=== PATIENT | male | born 1950 | race Caucasian/White ===

== ENCOUNTER 2021-07-31 19:22 | Inpatient (IN) | payer MEDICARE, OTHER, SELFPAY ==
[2021-07-31] VITALS (11 sets, daily range): BP systolic 137–166; BP diastolic 76–83; PULSE 78–100; RESP 17–22; TEMP 36.4–36.9; O2SAT 88–97; BMI 26.6
--- NOTE | 2021-07-31 20:02 | EKG12_ITS ---
Test Reason : SOB Blood Pressure : / mmHG Vent. Rate : 083 BPM Atrial Rate : 083 BPM P-R Int : 164 ms QRS Dur : 072 ms QT Int : 358 ms P-R-T Axes : 041 014 023 degrees QTc Int : 420 ms Normal sinus rhythm Normal ECG Confirmed by DONNIE STALLWORTH, BOZENA ([id number]), video tape editor MYRON LOPEZ ([id number]) on 08/02/2021 9:31:17 AM Referred By: Confirmed By:BOZENA FIELDS MD
--- NOTE | 2021-07-31 20:03 | EDS_ITS ---
HPI History of Present Illness Chief Complaint: Shortness of Breath Informant: patient Narrative Narrative: 70-year-old male presenting to the emergency department with dyspnea and cough of 1 week duration. Patient notes no significant sputum production. He notes headache. He denies any change in taste or smell. No nausea vomiting diarrhea. Mild sinus congestion. He denies prior history of smoking or any known lung conditions. He notes that typically he would walk about 5 miles every day. Today he states he did this but needed to go right home and rest. [facility] Medical History HTN (hypertension) Home Medications atenolol 25 mg PO DAILY 07/31/21 [History Last Taken Unknown] lisinopril 10 mg PO DAILY 07/31/21 [History Last Taken Unknown] tamsulosin 0.4 mg PO DAILY 07/31/21 [History Last Taken Unknown] Allergy/AdvReac Type Severity Reaction Status Date / Time No Known Allergies Allergy Verified 07/31/21 19:26 Social History (Updated 07/31/21 @ 20:[address] Mario Das DO) Smoking Status: Never smoker substance use type: does not use ROS ROS ED ROS Narrative Generalized fatigue Constitutional Constitutional ED: Denies chills, fever(s) or weight loss Eyes Eyes: Denies change in vision or diplopia ENT ENT ED: Denies ear pain, rhinorrhea or sore throat Cardiovascular Cardiovascular: Denies chest pain, orthopnea, palpitations or racing heartbeat Respiratory/Chest Respiratory/Chest: Reports cough, dyspnea and dyspnea on exertion; Denies orthopnea Gastrointestinal Gastrointestinal: Denies abdominal pain, diarrhea, nausea or vomiting Genitourinary Genitourinary ED: Denies dysuria, hematuria or urinary frequency Musculoskeletal Musculoskeletal: Denies arthralgias or myalgias Integumentary Denies abscess or rash Neurologic Neurologic: Reports headache(s); Denies weakness Psychiatric Psychiatric: Denies anxiety, depression, suicidal ideation or suicidal thoughts Endocrine Endocrinology: Denies polydipsia, polyphagia or polyuria Allergic/Immunologic Allergic/Immunologic ED: Denies mouth swelling, tongue swelling or urticaria EXAM Physical Exam Const Vital Signs: 07/31/21 19:23 07/31/21 19:42 07/31/21 19:44 Temperature 97.6 F L 97.6 F L Temperature Source Temporal Temporal Pulse Rate 100 100 Respiratory Rate 20 H 20 H Respiratory Effort Short of Breath Respiratory Pattern Tachypnea Blood Pressure 166/83 H 166/83 H Blood Pressure Mean 110 110 Pulse Ox 90 90 Oxygen Delivery Method Room Air Room Air Room Air 07/31/21 20:27 07/31/21 21:00 07/31/21 21:12 Temperature 98.5 F 98.5 F Temperature Source Temporal Temporal Pulse Rate 100 100 82 Respiratory Rate 22 H 22 H 17 Respiratory Effort Respiratory Pattern Normal Blood Pressure 137/76 H 137/76 H Blood Pressure Mean 96 96 Pulse Ox 92 92 Oxygen Delivery Method Room Air Room Air 07/31/21 21:27 Temperature Temperature Source Pulse Rate 93 Respiratory Rate 18 Respiratory Effort Respiratory Pattern Blood Pressure 137/76 H Blood Pressure Mean 96 Pulse Ox 90 Oxygen Delivery Method Room Air Positive well nourished and well developed General Appearance ED: well developed HEENT Reports normocephalic, head/scalp atraumatic, TM's clear and moist mucous membranes atraumatic Tympanic Membrane ED: Yes TM's clear Eyes PERRL and EOMs intact bilaterally Neck no lymphadenopathy, supple and no JVD Resp normal respiratory effort and clear to auscultation bilaterally Cardio regular rate, regular rhythm and no murmurs GI normal to inspection, nondistended, normoactive bowel sounds and non-tender Palpation: soft Back/Spine no CVA tenderness, normal ROM and normal to inspection Extremity normal to inspection General Extremety ED: Negative for edema General Extremity: Negative for edema Neuro oriented x3 and CN's II-XII intact bilaterally Sensorium / Orientation: alert Motor Exam: strength 5/5 throughout Psych mental status grossly normal Mood & Affect: Negative for depressed or tearful Skin no rashes or lesions noted and no wounds MDM MDM MDM Narrative Medical decision making narrative: My interpretation of the chest x-ray is a right lower lobe infiltrate with small pleural effusion. White count is elevated 13.7 hemoglobin of 13.1. D-dimer significantly elevated 2.01 does not age correct. CMP showed a BUN of 19 creatinine 1.02. Glucose of 180. Troponin high-sensitivity 5. Lactic acid is normal at 1.2. Patient received aerosols Rocephin and azithromycin after blood cultures were obtained. Because the elevated D-dimer a CTA of the chest was obtained. Results are currently pending. Watching the patient on the monitor he will drop to 88% on room air. He was placed on 3 L. Due to the hypoxia and the pneumonia I will speak with the hospitalist regarding admission. His Covid PCR is also negative Lab Data Attestation: I reviewed the patient's lab results. Labs: Laboratory Results - last 24 hr 07/31/21 07/31/21 07/31/21 19:37 19:37 19:37 WBC 13.7 H RBC 4.31 L Hgb 13.1 Hct 38.9 L MCV 90.3 MCH 30.4 MCHC 33.7 RDW Std Deviation 41.1 RDW Coeff of Juliet 12.3 Plt Count 591 H MPV 9.8 Immature Gran % (Auto) 0.800 Neut % (Auto) 80.7 H Lymph % (Auto) 6.6 L Rains % (Auto) 10.1 H Eos % (Auto) 1.4 Baso % (Auto) 0.4 Absolute Neuts (auto) 11.1 H Absolute Lymphs (auto) 0.90 Nucleated RBC % 0 PT 14.0 INR 1.1 APTT 35.6 D-Dimer Quant (PE/DVT) 2.01 H* Sodium 136 Potassium 3.8 Chloride 102 Carbon Dioxide 27.0 Anion Gap 7 BUN 19 H Creatinine 1.02 Estim Creat Clear Calc 65.46 Est GFR (MDRD) Af Amer 92 Est GFR (MDRD) Non-Af 76 BUN/Creatinine Ratio 18.6 Glucose 180 H Lactic Acid Calcium 8.9 Total Bilirubin 0.30 AST 23 ALT 42 Alkaline Phosphatase 158 H Troponin I High Sens 5 B-Natriuretic Peptide Total Protein 7.0 Albumin 2.3 L Globulin 4.7 H Albumin/Globulin Ratio 0.5 L COVID-19 (CARLOS) 07/31/21 07/31/21 07/31/21 19:37 20:25 21:17 WBC RBC Hgb Hct MCV MCH MCHC RDW Std Deviation RDW Coeff of Juliet Plt Count MPV Immature Gran % (Auto) Neut % (Auto) Lymph % (Auto) Rains % (Auto) Eos % (Auto) Baso % (Auto) Absolute Neuts (auto) Absolute Lymphs (auto) Nucleated RBC % PT INR APTT D-Dimer Quant (PE/DVT) Sodium Potassium Chloride Carbon Dioxide Anion Gap BUN Creatinine Estim Creat Clear Calc Est GFR (MDRD) Af Amer Est GFR (MDRD) Non-Af BUN/Creatinine Ratio Glucose Lactic Acid 1.2 Calcium Total Bilirubin AST ALT Alkaline Phosphatase Troponin I High Sens B-Natriuretic Peptide 54.5 Total Protein Albumin Globulin Albumin/Globulin Ratio COVID-19 (CARLOS) Negative Radiography Diagnostic Testing: Clinical Impression(s) from Imaging Studies Chest X-Ray 07/31/21 20:16 IMPRESSION: Small right pleural effusion and right lower lobe consolidation. Minor discoid atelectasis at left base Electronically Signed: Cristobal Garcia MD at 21:50 EDT , Service support , EKG Initial EKG: Attestation: I personally reviewed and interpreted this EKG as follows: Comments: Normal sinus rhythm with a ventricular rate of 83 bpm Discharge Plan Dx/Rx/DC Orders Clinical Impression: Pneumonia, Acute hypoxemic respiratory failure, Pleural effusion, right Disposition Disposition: Acute Care Hospital [facility]
--- NOTE | 2021-07-31 20:16 | RAD_ITS ---
STUDY: X-RAY CHEST REASON FOR EXAM: Male, 70 years old. dyspnea TECHNIQUE: AP portable COMPARISON: None. FINDINGS: Mild discoid atelectasis in the left lower lobe. There is right lower lobe consolidation with small effusion. Heart is mildly enlarged.. Normal mediastinum and kulwant. Normal visualized pulmonary arteries. Normal visualized aortic arch and descending thoracic aorta. Dorsal spine demonstrates degenerative change. Normal visualized ribs, clavicles, and shoulders. There is no demonstrated abnormality of the visualized soft tissue structures of the upper abdomen. RAD/Chest 1 View (Portable) IMPRESSION: Small right pleural effusion and right lower lobe consolidation. Minor discoid atelectasis at left base Electronically Signed: Cristobal Garcia MD at 21:50 EDT , Service support ,
[2021-07-31 21:03] LABS: Lactic Acid 1.2 mmol/L (0.4-1.9)
[2021-07-31 21:03] LABS: ALB/GLOB Ratio 0.5 RATIO (0.9-2.4); AST(SGOT) 23 U/L (15-37); Alanine Aminotransfer ALT/SGPT 42 U/L (16-61); Albumin, Serum 2.3 g/dL (3.2-5.0); Alkaline Phosphatase 158 U/L (45-117); Anion Gap 7 (5-15); BUN 19 mg/dL (7-18); BUN/Creat Ratio 18.6 RATIO (10-20); Calcium,Total 8.9 mg/dL (8.5-10.1); Chloride 102 mmol/L (98-107); Creatinine, Serum 1.02 mg/dL (0.70-1.30); EST Glomerular Filtration Rate 76 mL/min (>60); Est Glom Filt Rate - Afr Amer 92 mL/min (>60); Estimated Creatinine Clearance 65.46 ml/min; Globulin 4.7 g/dL (2.2-4.2); Glucose 180 mg/dL (74-106); Potassium 3.8 mmol/L (3.5-5.1); Sodium Level 136 mmol/L (136-145); Troponin-I HS 5 pg/mL (3.0-78.0)
[2021-07-31 21:04] LABS: International Normalized Ratio 1.1; Partial Thromboplast Time 35.6 Seconds (24.1-36.2)
[2021-07-31 21:05] LABS: D-Dimer Quantitative (DVT/PE) 2.01 FEU/ug/m (0.27-0.49)
--- NOTE | 2021-07-31 21:09 | CT_ITS ---
STUDY: CTA CHEST REASON FOR EXAM: Male, 70 years old. pulmonary embolism RADIATION DOSAGE (If Supplied By Facility): CTDIvol = ( 12.51 ) mGy, DLP = ( 367.82 ) mGycm TECHNIQUE: The examination was performed with the intravenous administration of IV 100mL Isovue-370. Post-processing of the angiographic images was performed, with multiplanar reformation and 3D reconstruction. Individualized dose optimization techniques were used for this CT. COMPARISON: None. FINDINGS: Lower limit of normal except for contrast density in the pulmonary arteries, between 180 and 230 [place] units decreases overall quality of the exam. No pulmonary embolism is suggested. Distal embolic disease is unlikely but not completely excluded. Thoracic aorta is normal size with no luminal irregularity to suggest dissection. No significant atherosclerosis. Heart is normal size without enlargement. There is mildly increased size of the left atrium measuring 4.0 cm AP diameter. This may be indicative of diastolic dysfunction. There is a moderate size, dense consolidation in the posterior dependent aspect of the right lower lobe extending into the superior segment right lower lobe. Underlying small pleural effusion. Patchy airspace disease is also seen in the right middle lobe and the posterior dependent aspect right upper lobe. In the left lung, posterior aspect of the superior segment left lower lobe is a small area of peripheral airspace disease. There is a tiny left pleural effusion. Right hilar 2.6 cm hypodensity likely representing lymphadenopathy. No other mediastinal or hilar lymphadenopathy. There is gynecomastia bilaterally symmetric. No axillary lymphadenopathy. Base of the neck is normal in appearance. Osseous structures are normal for age. CT/CTA Chest W/WO Contrast IMPRESSION: Suboptimal density of contrast in the pulmonary arteries limiting sensitivity however no pulmonary embolism is suggested. Dense right lower lobe consolidation and smaller areas of airspace disease in the periphery of the right upper lobe, left upper lobe and scattered within the right middle lobe. Infectious etiology is favored however there is some evidence of diastolic dysfunction. Associated pleural effusions decrease likelihood of Covid pneumonia which cannot be completely excluded. 2.6 cm right hilar hypodense mass suspicious for lymphadenopathy. Follow-up CT chest in 6 weeks following treatment to assess for resolution is recommended. Gynecomastia. Electronically Signed: Duane Boss DO at 0:00 EDT Tel , Service support ,
[2021-07-31 21:10] LABS: Absolute Neutrophil Count 11.1 X10^3/uL (2.0-7.7); Basophil# 0.05 X10^3/uL; Basophil% 0.4 % (0-1); Eosinophil# 0.19 X10^3/uL; Eosinophils% 1.4 % (0-5); Hematocrit 38.9 % (40-54); Hemoglobin 13.1 g/dL (13.0-16.5); Lymphocyte % 6.6 % (19-41); Mean Corp Hgb Conc 33.7 g/dL (32-36); Mean Corpuscular Hgb 30.4 pg (27.0-32.0); Mean Corpuscular Volume 90.3 fL (80-94); Mean Platelet Vol. 9.8 fl (6.2-12.0); Monocyte# 1.39 X10^3/uL; Monocyte% 10.1 % (0-10); NRBC Flagged by Analyzer 0 % (0-5); Neutrophil # 11.06 X10^3/uL (2.7-7.7); Neutrophil % 80.7 % (47-70); Platelet Count 591 K/mm3 (150-450); RBC Distribution Width CV 12.3 % (11.6-14.6); RBC Distribution Width SD 41.1 fl (35.1-43.9); Red Blood Count 4.31 M/mm3 (4.6-6.2); White Blood Count 13.7 K/mm3 (4.4-11.0)
[2021-07-31] MEDS: Ceftriaxone 1 GM/50 ML BAG IV (21:12)
[2021-07-31] MEDS: Albuterol 2.5 MG/3 ML VIAL.NEB. INHALATION (21:16)
[2021-07-31] MEDS: Ipratropium/Albuterol Sulfate 3 ML AMPUL.NEB INHALATION (21:16)
[2021-07-31 21:56] LABS: BNP,B-Type NATRIURETIC PEPTIDE 54.5 pg/mL (0-100)
[2021-07-31 22:30] LABS: Probe Check PASS; Specimen Processing Control PASS
--- NOTE | 2021-07-31 23:30 | PCM.HP.STD ---
[facility] - General General Date of Admission: 07/31/21 Date of Service: 07/31/21 Chief Complaint: Shortness of breath HPI Narrative JHOANA SPARKS, is a 70 M with a significant history of hypertension who presents to the emergency department with 2-3 days of progressively worsening shortness of breath. Associated with symptoms is dry cough for 1 week to 10 days. He went to the urgent care on the same day of presentation and reportedly his temperature at urgent care was 100 Fahrenheit. He denies chills or anorexia. He reports headache and fatigue. Routinely he walks about 5 miles each day. On the day of presentation after his 5 miles walk he was exceptionally tired than usual making him take about 2 hours nap. He received [place] COVID-19 immunization in November and in December 2020 and he had a booster about 3 weeks ago. [facility] Medical History HTN (hypertension) Home Medications atenolol 25 mg PO DAILY 07/31/21 [History Last Taken Unknown] lisinopril 10 mg PO DAILY 07/31/21 [History Last Taken Unknown] tamsulosin 0.4 mg PO DAILY 07/31/21 [History Last Taken Unknown] Allergy/AdvReac Type Severity Reaction Status Date / Time No Known Allergies Allergy Verified 07/31/21 19:26 Family History (Updated 08/01/21 @ 00:[address] Ajith García MD) Other Dementia Surgical History (Updated 08/01/21 @ 00:[address] Ajith García MD) History of kidney surgery Social History Smoking Status: Never smoker substance use type: does not use ROS ROS Narrative Constitutional: Reports fever and fatigue. Denies chills, anorexia and change in weight Eyes: Denies blurry vision, change in eye color, change in vision, discharge from eye(s), double vision, erythema, eye pain, loss of vision or other HEENT: Denies abnormal hearing, dysphagia, ear pain, epistaxis, headache(s), hearing loss, nasal congestion, nasal discharge, post nasal drip, sinus pressure, sore throat or other Cardiovascular: Denies chest pain or palpitations. Reports dyspnea on exertion. Respiratory/Chest: Reports dry cough and wheezes. Gastrointestinal: Denies abdominal pain, coffee ground emesis, constipation, diarrhea, dyspepsia, hematemesis, hematochezia, loose stools, melena, nausea, vomiting or other Genitourinary: Denies burning urination, difficulty urinating, dysuria, hematuria, nocturia, urinary frequency, urinary hesitancy, urinary incontinence, urinary urgency or other Musculoskeletal: Denies arthralgias, back pain, joint pain, joint stiffness, joint swelling, myalgias, neck pain or other Neurologic: Reports headache. Denies abnormal gait, abnormal speech, confusion, disequilibrium, dizziness, focal weakness, numbness, paresthesias, seizure-like activity, seizures, syncope, tingling, tremor(s) or other Psychiatric: Denies anxiety, depression, homicidal ideation, suicidal ideation or other Endocrinology: Denies change in body appearance, cold intolerance, excessive sweating, heat intolerance, polydipsia, polyuria or other Hematologic/Lymphatic: Denies anemia, easy bleeding, easy bruising, lymphadenopathy or other Integumentary: Denies rashes Allergic/Immunologic: Denies rhinitis, hives, eczema, asthma or other Vital Signs Vital Signs Vital Signs: 07/31/21 19:23 07/31/21 19:42 07/31/21 19:44 Temperature 97.6 F L 97.6 F L Temperature Source Temporal Temporal Pulse Rate 100 100 Respiratory Rate 20 H 20 H Respiratory Effort Short of Breath Respiratory Pattern Tachypnea Blood Pressure 166/83 H 166/83 H Blood Pressure Mean 110 110 Pulse Ox 90 90 Oxygen Delivery Method Room Air Room Air Room Air Oxygen Flow Rate (L/min) 07/31/21 20:27 07/31/21 21:00 07/31/21 21:12 Temperature 98.5 F 98.5 F Temperature Source Temporal Temporal Pulse Rate 100 100 82 Respiratory Rate 22 H 22 H 17 Respiratory Effort Respiratory Pattern Normal Blood Pressure 137/76 H 137/76 H Blood Pressure Mean 96 96 Pulse Ox 92 92 Oxygen Delivery Method Room Air Room Air Oxygen Flow Rate (L/min) 07/31/21 21:27 07/31/21 22:45 07/31/21 22:52 Temperature Temperature Source Pulse Rate 93 Respiratory Rate 18 Respiratory Effort Respiratory Pattern Blood Pressure 137/76 H Blood Pressure Mean 96 Pulse Ox 90 88 95 Oxygen Delivery Method Room Air Room Air Nasal Cannula Oxygen Flow Rate (L/min) 3 Weight Weight: 81.647 kg Body Mass Index (BMI) 26.6 Physical Exam Narrative Physical exam: General: Well-nourished, well-developed. Head: Normocephalic, atraumatic, no tenderness Eyes: PERRLA, EOMI ENT, no trauma, moist mucous membranes, no rhinorrhea Neck: Nontender, full range of motion, no spinal tenderness, deformities, step-off CVS: Regular rate and rhythm. S1-S2 present. No murmur, gallop or rub. Respiratory : Rales at right base. chest wall nontender, no wheezing Abdomen: Soft, nontender, nondistended, normal bowel sounds, no masses : Deferred Back: Nontender, no CVA tenderness, no midline spinal tenderness, deformities, step-offs Extremities: Nontender full range of motion, no trauma Skin: Normal color, no trauma, abrasions Neuro: Alert, oriented, cranial nerves II through XII grossly intact. Psychiatry: Normal mood. Normal affect. Not depressed. Not anxious. Results Lab / Micro Data Result Diagrams: 07/31/21 19:37 07/31/21 19:37 Labs: Laboratory Results - last 24 hr 07/31/21 19:37: WBC 13.7 H, RBC 4.31 L, Hgb 13.1, Hct 38.9 L, MCV 90.3, MCH 30.4, MCHC 33.7, RDW Std Deviation 41.1, RDW Coeff of Juliet 12.3, Plt Count 591 H, MPV 9.8, Immature Gran % (Auto) 0.800, Neut % (Auto) 80.7 H, Lymph % (Auto) 6.6 L, [facility] % (Auto) 10.1 H, Eos % (Auto) 1.4, Baso % (Auto) 0.4, Absolute Neuts (auto) 11.1 H, Absolute Lymphs (auto) 0.90, Nucleated RBC % 0 07/31/21 19:37: PT 14.0, INR 1.1, APTT 35.6, D-Dimer Quant (PE/DVT) 2.01 H* 07/31/21 19:37: Sodium 136, Potassium 3.8, Chloride 102, Carbon Dioxide 27.0, Anion Gap 7, BUN 19 H, Creatinine 1.02, Estim Creat Clear Calc 65.46, Est GFR (MDRD) Af Amer 92, Est GFR (MDRD) Non-Af 76, BUN/Creatinine Ratio 18.6, Glucose 180 H, Calcium 8.9, Total Bilirubin 0.30, AST 23, ALT 42, Alkaline Phosphatase 158 H, Troponin I High Sens 5, Total Protein 7.0, Albumin 2.3 L, Globulin 4.7 H, Albumin/Globulin Ratio 0.5 L 07/31/21 19:37: B-Natriuretic Peptide 54.5 07/31/21 20:25: Lactic Acid 1.2 07/31/21 21:17: COVID-19 (CARLOS) Negative Micro: Microbiology 07/31/21 19:32 Nasal Secretion SARS-CoV-2 Antigen (Rapid) - Final Radiology Impression Chest X-Ray 07/31/21 20:16 IMPRESSION: Small right pleural effusion and right lower lobe consolidation. Minor discoid atelectasis at left base Electronically Signed: Cristobal Garcia MD at 21:50 EDT , Service support , Assessment & Plan Assessment/Plan (1) Sepsis: QUALIFIERS: Sepsis type: sepsis due to unspecified organism Sepsis acute organ dysfunction status: with acute organ dysfunction Severe sepsis acute organ dysfunction type: acute respiratory failure Acute respiratory failure type: with hypoxia Severe sepsis shock status: without septic shock Qualified Code(s): A41.9 - Sepsis, unspecified organism; R65.20 - Severe sepsis without septic shock; J96.01 - Acute respiratory failure with hypoxia (2) Pneumonia: QUALIFIERS: Pneumonia type: due to unspecified organism Laterality: right Lung location: lower lobe of lung Qualified Code(s): J18.9 - Pneumonia, unspecified organism (3) Pleural effusion, right: (4) Acute hypoxemic respiratory failure: PLAN: Acute hypoxemic respiratory failure secondary to sepsis from pneumonia and pleural effusion Lactic acid: 1.2 RR : Highest respiratory rate 22 Highest heart rate: 100 Oxygen saturation: 88 percent on room air Review of labs showed white count of 13.7 with neutrophilia of 8.7% and with monocytosis and lymphopenia. D-dimer was 2.01. Chest CTA is pending. Covid PCR is negative. QSOFA:1 (respiratory rate 22) Blood culture ?2 is pending Radiologist impression of chest x-ray: Small right pleural effusion and right lower lobe consolidation. Minor discoid atelectasis at left base. Chest x-ray image was independently interpreted and agree radiologist interpretation. Antibiotics: Received ceftriaxone and IV azithromycin emergency department and continued. Albuterol as needed ordered. Incentive spirometer and chest physiotherapy ordered. Legionella antigen screen and Strep antigen ordered Patient with thrombocytosis likely reactive. Trend CBC and BMP Hypertension Blood pressure is not within goal Atenolol and Lisinopril continued. Trend blood pressure and adjust blood pressure medications. BPH: Tamsulosin continued. DVT prophylaxis: Subcutaneous Lovenox ordered Charges/Coding Visit Charges Inpatient E&M: 69740 Init Hosp L3
[2021-08-01] VITALS (8 sets, daily range): BP systolic 123–149; BP diastolic 71–87; PULSE 72–92; RESP 18–22; TEMP 36.5–36.9; O2SAT 92–97; BMI 27.1
[2021-08-01] MEDS: Albuterol 2.5 MG/3 ML VIAL.NEB. INHALATION (00:52)
[2021-08-01] MEDS: guaiFENesin 1,200 MG Tablet 1200 MG PO ×2 (00:55→08:48)
[2021-08-01] MEDS: Acetaminophen 325 MG Tablet 650 MG PO (00:56)
[2021-08-01 05:44] LABS: Absolute Lymphocyte Count 0.96 X10^3/uL (0.83-4.51); Absolute Neutrophil Count 8.7 X10^3/uL (2.0-7.7); Basophil# 0.05 X10^3/uL; Basophil% 0.4 % (0-1); Eosinophil# 0.28 X10^3/uL; Eosinophils% 2.5 % (0-5); Hematocrit 34.9 % (40-54); Hemoglobin 11.6 g/dL (13.0-16.5); Lymphocyte # 0.96 X10^3/ul (0.83-4.51); Lymphocyte % 8.4 % (19-41); Mean Corp Hgb Conc 33.2 g/dL (32-36); Mean Corpuscular Hgb 30.1 pg (27.0-32.0); Mean Corpuscular Volume 90.4 fL (80-94); Mean Platelet Vol. 9.1 fl (6.2-12.0); Monocyte# 1.31 X10^3/uL; Monocyte% 11.5 % (0-10); NRBC Flagged by Analyzer 0 % (0-5); Neutrophil # 8.68 X10^3/uL (2.7-7.7); Neutrophil % 76.3 % (47-70); Platelet Count 468 K/mm3 (150-450); RBC Distribution Width CV 12.5 % (11.6-14.6); RBC Distribution Width SD 41.5 fl (35.1-43.9); Red Blood Count 3.86 M/mm3 (4.6-6.2); White Blood Count 11.4 K/mm3 (4.4-11.0)
[2021-08-01 06:10] LABS: Anion Gap 6 (5-15); BUN 14 mg/dL (7-18); BUN/Creat Ratio 17.4 RATIO (10-20); Calcium,Total 8.5 mg/dL (8.5-10.1); Chloride 103 mmol/L (98-107); EST Glomerular Filtration Rate 100 mL/min (>60); Est Glom Filt Rate - Afr Amer 121 mL/min (>60); Estimated Creatinine Clearance 83.47 ml/min; Glucose 112 mg/dL (74-106); Potassium 3.9 mmol/L (3.5-5.1); Sodium Level 136 mmol/L (136-145)
[2021-08-01] MEDS: Tamsulosin HCl 0.4 MG Capsule PO (08:48)
[2021-08-01] MEDS: Enoxaparin 40 MG/0.4 ML Syringe SC (08:48)
[2021-08-01] MEDS: Lisinopril 10 MG Tablet PO (08:48)
[2021-08-01] MEDS: Atenolol 25 MG Tablet PO (08:49)
--- NOTE | 2021-08-01 11:19 | PCM.PN.HOSP ---
Documented by User: Pardeep MCGOWAN 08/01/21 11:33 Subjective Subjective Patient is a 70-year-old male comfortably resting in bed, alert and orient x3. Patient denies development of any new symptoms overnight and reports improvement of shortness of breath and cough from admission. Denies sputum production or hemoptysis. Denies chest pain, shortness of breath, palpitations, hemoptysis, sputum production, fever, chills, N/V/D. Objective Data Objective Data Vital Signs: Vital Signs Temp Pulse Resp BP Pulse Ox 98.0 F 72 18 123/73 H 93 08/01/21 04:00 08/01/21 04:00 08/01/21 04:00 08/01/21 04:00 08/01/21 08:48 Oxygen Flow Rate (L/min) 2 Oxygen Delivery Method Nasal Cannula Weight: 184 lb Body Mass Index (BMI) 27.1 Intake & Output: Intake and Output for Last 24 Hours 07/30/21 07/31/21 08/01/21 23:59 23:59 23:59 Intake Total 305 / 305 Balance 305 / 305 Lab / Micro Data Result Diagrams: 08/01/21 05:30 08/01/21 05:30 Labs: Laboratory Results - last 24 hr 07/31/21 19:37: WBC 13.7 H, RBC 4.31 L, Hgb 13.1, Hct 38.9 L, MCV 90.3, MCH 30.4, MCHC 33.7, RDW Std Deviation 41.1, RDW Coeff of Juliet 12.3, Plt Count 591 H, MPV 9.8, Immature Gran % (Auto) 0.800, Neut % (Auto) 80.7 H, Lymph % (Auto) 6.6 L, [place] % (Auto) 10.1 H, Eos % (Auto) 1.4, Baso % (Auto) 0.4, Absolute Neuts (auto) 11.1 H, Absolute Lymphs (auto) 0.90, Nucleated RBC % 0 07/31/21 19:37: PT 14.0, INR 1.1, APTT 35.6, D-Dimer Quant (PE/DVT) 2.01 H* 07/31/21 19:37: Sodium 136, Potassium 3.8, Chloride 102, Carbon Dioxide 27.0, Anion Gap 7, BUN 19 H, Creatinine 1.02, Estim Creat Clear Calc 65.46, Est GFR (MDRD) Af Amer 92, Est GFR (MDRD) Non-Af 76, BUN/Creatinine Ratio 18.6, Glucose 180 H, Calcium 8.9, Total Bilirubin 0.30, AST 23, ALT 42, Alkaline Phosphatase 158 H, Troponin I High Sens 5, Total Protein 7.0, Albumin 2.3 L, Globulin 4.7 H, Albumin/Globulin Ratio 0.5 L 07/31/21 19:37: B-Natriuretic Peptide 54.5 07/31/21 20:25: Lactic Acid 1.2 07/31/21 21:17: COVID-19 (CARLOS) Negative 08/01/21 05:30: WBC 11.4 H, RBC 3.86 L, Hgb 11.6 L, Hct 34.9 L, MCV 90.4, MCH 30.1, MCHC 33.2, RDW Std Deviation 41.5, RDW Coeff of Juliet 12.5, Plt Count 468 H, MPV 9.1, Immature Gran % (Auto) 0.900, Neut % (Auto) 76.3 H, Lymph % (Auto) 8.4 L, [place] % (Auto) 11.5 H, Eos % (Auto) 2.5, Baso % (Auto) 0.4, Absolute Neuts (auto) 8.7 H, Absolute Lymphs (auto) 0.96, Nucleated RBC % 0 08/01/21 05:30: Sodium 136, Potassium 3.9, Chloride 103, Carbon Dioxide 27.0, Anion Gap 6, BUN 14, Creatinine 0.80, Estim Creat Clear Calc 83.47, Est GFR (MDRD) Af Amer 121, Est GFR (MDRD) Non-Af 100, BUN/Creatinine Ratio 17.4, Glucose 112 H, Calcium 8.5 Micro: Microbiology 07/31/21 19:32 Nasal Secretion SARS-CoV-2 Antigen (Rapid) - Final Radiography Diagnostic Testing: Radiology Impression Chest X-Ray 07/31/21 20:16 IMPRESSION: Small right pleural effusion and right lower lobe consolidation. Minor discoid atelectasis at left base Electronically Signed: Cristobal Garcia MD at 21:50 EDT , Service support , Chest CTA 07/31/21 21:09 IMPRESSION: Suboptimal density of contrast in the pulmonary arteries limiting sensitivity however no pulmonary embolism is suggested. Dense right lower lobe consolidation and smaller areas of airspace disease in the periphery of the right upper lobe, left upper lobe and scattered within the right middle lobe. Infectious etiology is favored however there is some evidence of diastolic dysfunction. Associated pleural effusions decrease likelihood of Covid pneumonia which cannot be completely excluded. 2.6 cm right hilar hypodense mass suspicious for lymphadenopathy. Follow-up CT chest in 6 weeks following treatment to assess for resolution is recommended. Gynecomastia. Electronically Signed: Duane Boss, at 0:00 EDT Tel , Service support , Physical Exam Const alert, oriented x3 and no apparent distress HEENT head/scalp atraumatic and moist oral mucous membranes Head and Scalp: normocephalic Eyes PERRL, EOMs intact bilaterally and conjunctivae normal Neck no lymphadenopathy, supple and no JVD Resp normal respiratory effort, no retractions, no use of accessory muscles and clear to auscultation bilaterally Cardio regular rate, regular rhythm, no murmurs and no JVD GI normal to inspection, nondistended, normoactive bowel sounds, soft to palpation and non-tender Extremity normal to inspection, full ROM and no clubbing, cyanosis or edema Peripheral Pulses: Yes pulses 2+ throughout Skin no rashes or lesions noted, no wounds, skin turgor normal and no jaundice Neuro CN's II-XII intact bilaterally Psych affect normal Assessment & Plan Assessment/Plan (1) Pneumonia: QUALIFIERS: Laterality: right Lung location: lower lobe of lung Pneumonia type: due to unspecified organism Qualified Code(s): J18.9 - Pneumonia, unspecified organism (2) Acute hypoxemic respiratory failure: PLAN: 1) acute hypoxemic respiratory failure secondary to sepsis from pneumonia and pleural effusion Resolved, currently satting 94% on room air. Patient denies shortness of breath, cough, sputum production or difficulty breathing. Blood cultures pending. Rapid Covid is negative. Chest CTA and chest x-ray demonstrate right lower lobe consolidation with pleural effusion. If patient continues to improve, will likely discharge tomorrow. Continue ceftriaxone and azithromycin. 2) HTN Stable, continue atenolol and lisinopril. 3) BPH Continue tamsulosin. DVT prophylaxis - Lovenox Patient seen by Pardeep Maldonado PA-C, under the supervision of Dr. Arellano. Documented by User: Dr. Nicolás Arellano DO 08/01/21 19:12 Objective Data Lab / Micro Data Result Diagrams: 08/01/21 05:30 08/01/21 05:30
--- NOTE | 2021-08-01 12:15 | CASEMGMT ---
RN SILAS COTTON FEEDER CM to room to meet with patient for initial transition planning/care coordination assessment. RN SILAS introduced self and role at [facility]. Pt voices understanding and consents to assessment at this time. Pt resting in bed in no distress at this time. Pt is A/O at this time and answers all questions appropriately. Care providers, pharmacy, and demographics verified/updated at this time. PCP: Dr Mcdowell Specialists: Urology @ [facility] [place] Preferred Pharmacy:[facility] Insurance: [facility], [place] Prescription Benefit: Yes Living Will/HPOA: Has both. is HPOA LNOK: , Odilia Poe Living Arrangements: Lives w/ in one-story home w/2 steps to enter. Independent. Walks 5 miles/day. Transportation: Pt states drives self and states no transportation concerns at this time. also drives. DME: Denies using any DME and denies needs. HHC/SNF: No history of either. No needs identified. Pt wishes to return home and states has no concerns with going home at time of discharge. CM to follow for home oxygen needs and any discharge planning/needs. Currently on RA. Pt voices no concerns/needs at this time. Advised pt to ask for CM if any questions/concerns/needs arise. Voices understanding. PLAN: Home w/spousal support and discharge plans in place. Reece PARHAM RN, CM
--- NOTE | 2021-08-01 13:09 | PCM.DC ---
Discharge Instructions Diet Discharge Diet: No restrictions Activity Discharge Activity: Return to Normal Activity Weight Bearing Status: Weight bearing as tolerated Dressing / Incision Call your doctor if you observe: Fever of 101 or Higher, Numbness or Tingling, Shortness of breath, Dizziness, Chest pain, Increased palpitations (irregular heartbeat) and Calf discomfort Follow Up Care Please Follow Up With: Primary care provider When: Within the next two weeks. Test Results: Test results from this visit will be discussed in further detail at your follow-up appointment, if applicable. Discharge Plan Admission Admit Date/Time: 07/31/21 23:20 Primary Reason for Your Visit: Shortness of breath Attending Provider: Nicolás Arellano Primary Care Provider: Teetee Mcdowell Instructions Additional Instructions / Restrictions: Obtain a repeat CT of the chest in the next 6 to 8 weeks due to right hilar hypodense mass suspicious for lymphadenopathy. Begin 7 day course of Levofloxacin today, 08/01/2021. Discharge Orders/Prescriptions Prescriptions: New levofloxacin 750 mg tablet 750 mg PO DAILY Qty: 7 RF: 0 Continued atenolol 25 mg Tablet 25 mg PO DAILY RF: 0 tamsulosin 0.4 mg Capsule 0.4 mg PO DAILY RF: 0 lisinopril 10 mg Tablet 10 mg PO DAILY RF: 0 aspirin 81 mg Tablet,Delayed Release (Dr/Ec) 81 mg PO DAILY RF: 0 Referrals / Follow Up: Teetee Mcdowell MD [Primary Care Provider] - Within 2 Weeks Disposition Disposition (needs filled in before D/C Order can be placed): Home, Self Care
--- NOTE | 2021-08-01 13:15 | DS.PCM_ITS ---
Documented by User: Pardeep MCGOWAN 08/01/21 13:18 Providers Date of Admission: 07/31/21 Primary Care Physician: Dr. Teetee Mcdowell MD Reason For Visit: SEPSIS 2NDARY TO PNEUMONIA Diagnosis Discharge Diagnosis (1) Pneumonia: Status: Acute Code(s): J18.9 - Pneumonia, unspecified organism Qualifiers: Laterality: right Lung location: lower lobe of lung Pneumonia type: due to unspecified organism Qualified Code(s): J18.9 - Pneumonia, unspecified organism (2) Acute hypoxemic respiratory failure: Status: Acute Code(s): J96.01 - Acute respiratory failure with hypoxia Medications at Discharge Home Medications atenolol 25 mg PO DAILY 07/31/21 lisinopril 10 mg PO DAILY 07/31/21 tamsulosin 0.4 mg PO DAILY 07/31/21 aspirin 81 mg PO DAILY 08/01/21 levofloxacin 750 mg PO DAILY #7 tab 08/01/21 Hospital Course Summary of Care Provided Minutes Spent on Discharge: 35 Hospital Course: Disposition: Patient to discharge home. 1) acute hypoxemic respiratory failure secondary to sepsis from pneumonia and pleural effusion Resolved, currently satting 94% on room air. Patient denies shortness of breath, cough, sputum production or difficulty breathing. Patient's course improved much faster than anticipated. Blood cultures pending. rapid Covid is negative. Chest CTA and chest x-ray demonstrate right lower lobe consolidation with pleural effusion. Patient to complete 7-day course of levofloxacin at 700 mg daily, starting today. 2) Right hilar mass Chest CT demonstrated 2.6 cm right hilar hypodense mass suspicious for lymphadenopathy. Patient is to obtain repeat chest CT in 6 to 8 weeks while in [place]. 3) HTN Stable, continue atenolol and lisinopril. 4) BPH Continue tamsulosin. Patient seen by Pardeep Maldonado PA-C, under the supervision of Dr. Arellano. Physical Exam Narrative Patient is a 70-year-old male comfortably resting in the chair, alert and orient x3. Patient reports resolution of shortness of breath and cough from admission. Denies development of any new symptoms overnight. Does not appear to be in acute distress. Const alert, oriented x3 and no apparent distress HEENT normocephalic, head/scalp atraumatic and hearing grossly normal bilaterally Eyes PERRL, EOMs intact bilaterally and conjunctivae normal Neck no lymphadenopathy, supple and no JVD Resp normal respiratory effort, no retractions, no use of accessory muscles and clear to auscultation bilaterally Cardio regular rate, regular rhythm, no murmurs and no JVD GI normal to inspection, nondistended, normoactive bowel sounds, soft to palpation and non-tender Extremity normal to inspection, full ROM and no clubbing, cyanosis or edema Skin no rashes or lesions noted, no wounds and skin turgor normal Neuro CN's II-XII intact bilaterally Psych affect normal Weight / BMI Weight Weight: 184 lb Body Mass Index (BMI) 27.1 ABG / Lab / Microbiology Data Result Diagrams: 08/01/21 05:30 08/01/21 05:30 Laboratory: Laboratory Results - last 24 hr 07/31/21 19:37: WBC 13.7 H, RBC 4.31 L, Hgb 13.1, Hct 38.9 L, MCV 90.3, MCH 30.4, MCHC 33.7, RDW Std Deviation 41.1, RDW Coeff of Juliet 12.3, Plt Count 591 H, MPV 9.8, Immature Gran % (Auto) 0.800, Neut % (Auto) 80.7 H, Lymph % (Auto) 6.6 L, [place] % (Auto) 10.1 H, Eos % (Auto) 1.4, Baso % (Auto) 0.4, Absolute Neuts (auto) 11.1 H, Absolute Lymphs (auto) 0.90, Nucleated RBC % 0 07/31/21 19:37: PT 14.0, INR 1.1, APTT 35.6, D-Dimer Quant (PE/DVT) 2.01 H* 07/31/21 19:37: Sodium 136, Potassium 3.8, Chloride 102, Carbon Dioxide 27.0, Anion Gap 7, BUN 19 H, Creatinine 1.02, Estim Creat Clear Calc 65.46, Est GFR (MDRD) Af Amer 92, Est GFR (MDRD) Non-Af 76, BUN/Creatinine Ratio 18.6, Glucose 180 H, Calcium 8.9, Total Bilirubin 0.30, AST 23, ALT 42, Alkaline Phosphatase 158 H, Troponin I High Sens 5, Total Protein 7.0, Albumin 2.3 L, Globulin 4.7 H, Albumin/Globulin Ratio 0.5 L 07/31/21 19:37: B-Natriuretic Peptide 54.5 07/31/21 20:25: Lactic Acid 1.2 07/31/21 21:17: COVID-19 (CARLOS) Negative 08/01/21 05:30: WBC 11.4 H, RBC 3.86 L, Hgb 11.6 L, Hct 34.9 L, MCV 90.4, MCH 30.1, MCHC 33.2, RDW Std Deviation 41.5, RDW Coeff of [place] 12.5, Plt Count 468 H, MPV 9.1, Immature Gran % (Auto) 0.900, Neut % (Auto) 76.3 H, Lymph % (Auto) 8.4 L, [place] % (Auto) 11.5 H, Eos % (Auto) 2.5, Baso % (Auto) 0.4, Absolute Neuts (auto) 8.7 H, Absolute Lymphs (auto) 0.96, Nucleated RBC % 0 08/01/21 05:30: Sodium 136, Potassium 3.9, Chloride 103, Carbon Dioxide 27.0, Anion Gap 6, BUN 14, Creatinine 0.80, Estim Creat Clear Calc 83.47, Est GFR (MDRD) Af Amer 121, Est GFR (MDRD) Non-Af 100, BUN/Creatinine Ratio 17.4, Gluco se 112 H, Calcium 8.5 Microbiology: Microbiology 08/01/21 01:00 Urine, Random Legionella Antigen - Final 08/01/21 01:00 Urine, Random Streptococcus pneumoniae Antigen (M - Final 07/31/21 19:32 Nasal Secretion SARS-CoV-2 Antigen (Rapid) - Final Radiography Diagnostic Testing: Radiology Impression Chest X-Ray 07/31/21 20:16 IMPRESSION: Small right pleural effusion and right lower lobe consolidation. Minor discoid atelectasis at left base Electronically Signed: Cristobal Garcia MD at 21:50 EDT , Service support , Chest CTA 07/31/21 21:09 IMPRESSION: Suboptimal density of contrast in the pulmonary arteries limiting sensitivity however no pulmonary embolism is suggested. Dense right lower lobe consolidation and smaller areas of airspace disease in the periphery of the right upper lobe, left upper lobe and scattered within the right middle lobe. Infectious etiology is favored however there is some evidence of diastolic dysfunction. Associated pleural effusions decrease likelihood of Covid pneumonia which cannot be completely excluded. 2.6 cm right hilar hypodense mass suspicious for lymphadenopathy. Follow-up CT chest in 6 weeks following treatment to assess for resolution is recommended. Gynecomastia. Electronically Signed: Duane DO Gera at 0:00 EDT Tel , Service support , D/C Instructions Discharge Diet: No restrictions Weight Bearing Status: Weight bearing as tolerated Call your doctor if you observe: Fever of 101 or Higher, Numbness or Tingling, Shortness of breath, Dizziness, Chest pain, Increased palpitations (irregular heartbeat) and Calf discomfort Please Follow Up With: Primary care provider When: Within the next two weeks. Meaningful Use Info Meaningful Use Diagnoses (Choose all that apply): None applicable Discharge Plan Admission Admit Date/Time: 07/31/21 23:20 Primary Reason for Your Visit: Shortness of breath Attending Provider: Nicolás Arellano Primary Care Provider: Teetee Mcdowell Instructions Additional Instructions / Restrictions: Obtain a repeat CT of the chest in the next 6 to 8 weeks due to right hilar hypo dense mass suspicious for lymphadenopathy. Begin 7 day course of Levofloxacin today, 08/01/2021. Discharge Orders/Prescriptions Prescriptions: New levofloxacin 750 mg tablet 750 mg PO DAILY Qty: 7 RF: 0 Continued atenolol 25 mg Tablet 25 mg PO DAILY RF: 0 tamsulosin 0.4 mg Capsule 0.4 mg PO DAILY RF: 0 lisinopril 10 mg Tablet 10 mg PO DAILY RF: 0 aspirin 81 mg Tablet,Delayed Release (Dr/Ec) 81 mg PO DAILY RF: 0 Referrals / Follow Up: Teetee Mcdowell MD [Primary Care Provider] - Within 2 Weeks Disposition Disposition (needs filled in before D/C Order can be placed): Home, Self Care Documented by User: Dr. Nicolás Arellano DO 08/01/21 19:15 Providers Date of Admission: 07/31/21 Reason For Visit: SEPSIS 2NDARY TO PNEUMONIA Medications at Discharge Home Medications atenolol 25 mg PO DAILY 07/31/21 lisinopril 10 mg PO DAILY 07/31/21 tamsulosin 0.4 mg PO DAILY 07/31/21 aspirin 81 mg PO DAILY 08/01/21 levofloxacin 750 mg PO DAILY #7 tab 08/01/21 ABG / Lab / Microbiology Data Result Diagrams: 08/01/21 05:30 08/01/21 05:30 Discharge Plan Admission Admit Date/Time: 07/31/21 23:20 Primary Reason for Your Visit: Shortness of breath Attending Provider: Nicolás Arellano Primary Care Provider: Teetee Mcdowell Instructions Additional Instructions / Restrictions: Obtain a repeat CT of the chest in the next 6 to 8 weeks due to right hilar hypodense mass suspicious for lymphadenopathy. Begin 7 day course of Levofloxacin today, 08/01/2021. Discharge Orders/Prescriptions Prescriptions: New levofloxacin 750 mg tablet 750 mg PO DAILY Qty: 7 RF: 0 Continued atenolol 25 mg Tablet 25 mg PO DAILY RF: 0 tamsulosin 0.4 mg Capsule 0.4 mg PO DAILY RF: 0 lisinopril 10 mg Tablet 10 mg PO DAILY RF: 0 aspirin 81 mg Tablet,Delayed Release (Dr/Ec) 81 mg PO DAILY RF: 0 Referrals / Follow Up: Teetee Mcdowell MD [Primary Care Provider] - Within 2 Weeks Disposition Disposition (needs filled in before D/C Order can be placed): Home, Self Care Charges/Coding Addendum Addendum: Patient was seen and examined independently of Pardeep Maldonado, he is on room air at the time of my examination, I went over some options with the patient regarding staying in the hospital and receiving more IV antibiotics or going home on oral antibiotics. Patient decided that he wanted to be discharged home on oral antibiotics. Patient's was present at the time of my examin ation. On examination he appeared in good health and spirits. Vital signs as documented. Skin warm and dry and without overt rashes. Neck without JVD, neck was supple, trachea midline, thyroid was normal. Lungs-there were some inspiratory rales at the left base noted on auscultation, normal air movement was noted. Heart exam notable for regular rhythm, normal sounds and absence of murmurs, rubs or gallops. Abdomen unremarkable and without evidence of organomegaly, masses, or abdominal aortic enlargement. Bowel sounds are present, abdomen is not distended. Extremities nonedematous, no cyanosis was noted, no clubbing was noted. Neuro: Cranial nerves II through XII are grossly intact, no focal motor deficits were noted, sensation to light touch and pinprick intact, motor exam 5/5 throughout. Psych: Patient is alert and oriented x3, he does not appear anxious or depressed, he does not appear agitated. Patient was advised to obtain a repeat CT of the chest in 6 to 8 weeks, he will be in [place] at this time for several months starting 2 weeks from now. He states he does have a physician in [place] that I can order his CAT scan. I have arranged for him to have a disc of his CAT scan of his chest so that he can take it to the physician in [place]. I also printed out a copy of the patient's CAT scan result. Patient appears stable for discharge at this time, I have reviewed Pardeep Maldonado's discharge summary including his medical assessment and plan of care and endorse it. Patient recovered quicker than expected from his hypoxia and pneumonia, I deemed him stable for discharge today. Visit Charges Inpatient E&M: [id number] Disch Hosp
== END 2021-08-01 15:05 | disposition home or self-care (01) | DRG 871 ==
LOC: ED 22:53 → MS3 23:36
PROVIDERS: Admitting Provider Hospitalist; Emergency Provider Emergency Medicine; PCP Internal Medicine; Visit Provider Internal Medicine
DX: A41.9 Sepsis, unspecified organism (principal); J18.9 Pneumonia, unspecified organism; J96.01 Acute respiratory failure with hypoxia; J90 Pleural effusion, not elsewhere classified; R65.20 Severe sepsis without septic shock; Z20.822 Contact with and (suspected) exposure to COVID-19; I10 Essential (primary) hypertension; N40.0 Benign prostatic hyperplasia without lower urinary tract symptoms; Z79.82 Long term (current) use of aspirin; Z79.899 Other long term (current) drug therapy
CPT/HCPCS: 36415; 71045; 71275; 80048; 80053; 83605; 83880; 84484; 85025; 85379; 85610; 85730; 87040; 87426; 87449; 87635; 93005; 94640; 94667; 99251; 99285; J7050; Q9967; U0005; A4216; G0463; U0003

== ENCOUNTER 2021-08-19 09:41 | Inpatient (IN) | payer MEDICARE, OTHER, SELFPAY ==
[2021-08-19] VITALS (15 sets, daily range): BP systolic 127–160; BP diastolic 79–96; PULSE 57–101; RESP 17–25; TEMP 36.7–37.1; O2SAT 83–94; BMI 27.5; BMI 25.8
--- NOTE | 2021-08-19 10:23 | EKG12_ITS ---
Test Reason : SOB Blood Pressure : / mmHG Vent. Rate : 066 BPM Atrial Rate : 066 BPM P-R Int : 170 ms QRS Dur : 070 ms QT Int : 400 ms P-R-T Axes : 043 003 026 degrees QTc Int : 419 ms Normal sinus rhythm Normal ECG Confirmed by DONNIE STALLWORTH, BOZENA ([id number]), film or videotape editor MYRON LOPEZ ([id number]) on 08/21/2021 9:44:12 AM Referred By: SUSANA Confirmed By:BOZENA FIELDS MD
--- NOTE | 2021-08-19 10:24 | CT_ITS ---
STUDY: CTA CHEST REASON FOR EXAM: Male, 70 years old. Dyspnea. Prior diagnosis of pneumonia. Tachycardia. Worsening shortness of breath. RADIATION DOSAGE (If Supplied By Facility): CTDIvol = ( 11.54 ) mGy, DLP = ( 369.10 ) mGycm TECHNIQUE: The examination was performed with the intravenous administration of IV 100mL Isovue-370. Post-processing of the angiographic images was performed, with multiplanar reformation and 3D reconstruction. Individualized dose optimization techniques were used for this CT. COMPARISON: Comparison is made with prior examination dated 07/31/2021. FINDINGS: Gynecomastia. Normal enhancement of the main pulmonary artery and right and left pulmonary arteries. Normal enhancement of the bilateral peripheral pulmonary arteries. There is no demonstrated pulmonary embolism. Normal thoracic aorta and visualized great vessels. There is no demonstrated aortic dissection. Normal heart and pericardium. Normal mediastinum. Normal hilar regions. Normal visualized trachea and bronchi. The lungs are well expanded. Since prior study, there is new consolidation in the right upper lobe as well as in the superior segment of the right lower lobe. Persistent consolidation in the right lower lobe with a small bilateral pleural effusions. Mild airspace disease at the left lung base. Normal chest wall structures. There are degenerative changes of thoracic spine. Normal visualized upper abdomen. CT/CTA Chest W/WO Contrast IMPRESSION: New infiltration in the right upper lobe with progressive infiltrate in the right lower lobe. Small bilateral pleural effusions right greater than left. Focal infiltrate in the posterior medial segment of the left lower lobe. Electronically Signed: Andriy Hernandez MD at 11:39 EST , Service support ,
--- NOTE | 2021-08-19 10:25 | ED.VIS.DYS ---
HPI History of Present Illness Chief Complaint: Shortness of Breath Informant: patient Onset/Context/Timing Onset: Weeks (3-1/2) Context: gradual Timing: Continuous Quality: Positive for Dyspnea on exertion Worsened by: Exertion Relieved by: Oxygen Associated Symptoms cough; Negative for rhinorrhea, ear pain, fever, sore throat, chills, clear sputum, white sputum, yellow sputum or green sputum Chest Pain: Positive for Intermittent and Pressure Narrative Narrative: Patient presents with shortness of breath that has been constant for the past 3-1/2 weeks. Patient states it came on gradually. Patient states it has been constant. Patient was admitted for community-acquired pneumonia and was on antibiotics initially. Patient has been on prednisone for the past 4 days. Patient admits to a slight cough but denies any sputum production. Patient admits to some palpitations. Patient gets chest pain with the palpitations. Patient states it feels like a pressure. Patient states it goes away whenever the palpitations resolved. Patient admits to some lightheadedness with the palpitations as well. Patient denies any fevers or chills. Patient admits to a headache. Patient states he has had several COVID-19 tests over the past 3-1/2 weeks and have all been negative. [facility] Medical History HLD (hyperlipidemia) HTN (hypertension) Pleural effusion, right Home Medications atenolol 25 mg PO DAILY 07/31/21 [History Last Taken Unknown] lisinopril 10 mg PO DAILY 07/31/21 [History Last Taken Unknown] tamsulosin 0.4 mg PO DAILY 07/31/21 [History Last Taken Unknown] aspirin 81 mg PO DAILY 08/01/21 [History Last Taken Unknown] levofloxacin 750 mg PO DAILY #7 tab 08/01/21 [Rx Last Taken Unknown] prednisone See Taper PO DAILY 08/19/21 [History Last Taken Unknown] sildenafil 100 mg PO PRN PRN 08/19/21 [History Last Taken Unknown] Allergy/AdvReac Type Severity Reaction Status Date / Time No Known Allergies Allergy Verified 08/19/21 09:42 Family History (Updated 08/01/21 @ 00:[address] Ajith García MD) Other Dementia Surgical History History of kidney surgery Social History Smoking Status: Never smoker substance use type: does not use ROS ROS ED Constitutional Constitutional ED: Denies chills or fever(s) Eyes Eyes: Denies blurry vision or change in vision ENT ENT ED: Denies rhinorrhea or sore throat Cardiovascular Cardiovascular: Reports chest pain and palpitations Respiratory/Chest Respiratory/Chest: Reports cough and dyspnea Gastrointestinal Gastrointestinal: Denies nausea or vomiting Genitourinary Genitourinary ED: Denies dysuria or hematuria Musculoskeletal Musculoskeletal: Denies back pain or neck pain Integumentary Denies abscess or rash Neurologic Neurologic: Reports headache(s); Denies weakness Allergic/Immunologic Allergic/Immunologic ED: Denies mouth swelling or urticaria EXAM Physical Exam Const Vital Signs: 08/19/21 09:46 08/19/21 09:49 08/19/21 10:30 Temperature 98.2 F 98.2 F Temperature Source Oral Oral Pulse Rate 75 98 Respiratory Rate 22 H 23 H Respiratory Pattern Blood Pressure 160/84 H 160/84 H Blood Pressure Mean 109 109 Pulse Ox 90 90 Oxygen Delivery Method Nasal Cannula Room Air Nasal Cannula Oxygen Flow Rate (L/min) 6 6 6 08/19/21 10:34 08/19/21 10:41 08/19/21 10:49 Temperature 98.2 F Temperature Source Oral Pulse Rate 66 101 H 101 H Respiratory Rate 22 H 21 H 21 H Respiratory Pattern Tachypnea Blood Pressure 145/84 H 145/84 H Blood Pressure Mean 104 104 Pulse Ox 92 92 Oxygen Delivery Method Nasal Cannula Nasal Cannula Oxygen Flow Rate (L/min) 6 6 08/19/21 11:00 08/19/21 12:00 Temperature 98.2 F Temperature Source Oral Pulse Rate 67 Respiratory Rate 21 H 19 H Respiratory Pattern Blood Pressure 127/86 H Blood Pressure Mean 99 Pulse Ox 92 Oxygen Delivery Method Nasal Cannula Oxygen Flow Rate (L/min) 6 Positive well nourished and well developed General Appearance ED: well developed HEENT Reports moist mucous membranes Neck supple and no JVD Resp normal respiratory effort Auscultation: diminished lung sounds diffuse Cardio regular rate, regular rhythm and no murmurs GI normal to inspection, nondistended, normoactive bowel sounds and non-tender Palpation: soft Extremity normal to inspection General Extremety ED: Negative for edema or tenderness General Extremity: Negative for edema Neuro oriented x3, CN's II-XII intact bilaterally and no sensory deficits noted Sensorium / Orientation: alert Motor Exam: strength 5/5 throughout Psych mental status grossly normal Skin no rashes or lesions noted MDM MDM MDM Narrative Medical decision making narrative: Patient was given a DuoNeb aerosol here. CBC shows a leukocytosis of 14.7. Platelets were elevated at 752. Comprehensive metabolic profile was essentially within normal limits. High-sensitivity troponin was normal. Lactate was normal. EKG was obtained. On my interpretation, it showed a normal sinus rhythm with a rate of 66. ID interval, QRS interval, and QTc intervals were all normal. [place] was normal. There are no acute ST or T wave changes. CTA of the chest was obtained. There is no evidence of pulmonary embolism. There is new consolidation in the right upper lobe as well as the superior segment of the left lower lobe. There is persistent consolidation in the right lower lobe. There are small bilateral effusions. This was interpreted by the radiologist and reviewed by myself. Blood cultures were obtained. Patient was started on Zosyn, Zithromax, and vancomycin. Case was discussed with the hospitalist. She recommended obtaining a COVID-19 PCR test. This was ordered. She will admit the patient to her service. Patient understood and was agreeable with the plan. All questions were answered. Lab Data Attestation: I reviewed the patient's lab results. Labs: Laboratory Results - last 24 hr 08/19/21 08/19/21 08/19/21 09:55 09:55 10:30 WBC 14.7 H RBC 4.51 L Hgb 13.2 Hct 39.9 L MCV 88.5 MCH 29.3 MCHC 33.1 RDW Std Deviation 41.0 RDW Coeff of Juliet 12.6 Plt Count 752 H* MPV 9.0 Immature Gran % (Auto) 0.900 Neut % (Auto) 78.6 H Lymph % (Auto) 8.8 L [place] % (Auto) 10.7 H Eos % (Auto) 0.8 Baso % (Auto) 0.2 Absolute Neuts (auto) 11.6 H Absolute Lymphs (auto) 1.29 Nucleated RBC % 0 Differential Comment COMMENT Diff Path Review May foll Platelet Estimate MKD INC Sodium 135 L Potassium 3.8 Chloride 103 Carbon Dioxide 25.0 Anion Gap 7 BUN 15 Creatinine 0.90 Estim Creat Clear Calc 74.19 Est GFR (MDRD) Af Amer 106 Est GFR (MDRD) Non-Af 88 BUN/Creatinine Ratio 16.6 Glucose 124 H Lactic Acid 1.6 Calcium 8.9 Total Bilirubin 0.20 AST 27 ALT 55 Alkaline Phosphatase 136 H Troponin I High Sens 6 Total Protein 6.4 Albumin 1.9 L Globulin 4.5 H Albumin/Globulin Ratio 0.4 L Radiography Diagnostic Testing: Clinical Impression(s) from Imaging Studies Chest CTA 08/19/21 10:24 IMPRESSION: New infiltration in the right upper lobe with progressive infiltrate in the right lower lobe. Small bilateral pleural effusions right greater than left. Focal infiltrate in the posterior medial segment of the left lower lobe. Electronically Signed: Andriy Hernandez MD at 11:39 EST , Service support , EKG Initial EKG: Attestation: I personally reviewed and interpreted this EKG as follows: Interpretation: Sinus Rhythm (66) and No Acute Injury Pattern Prior EKG tracings: available for review Prior: Unchanged (07/31/2021) Treatment and Re-Evaluation Vital Sign Attestation:: Vital signs were reviewed prior to admission. They are stable. Discharge Plan Dx/Rx/DC Orders Clinical Impression: Pneumonia, Hypoxia Disposition Disposition: Acute Care Hospital [facility] Discharge Date/Time: 08/19/21 13:33
[2021-08-19] MEDS: Ipratropium/Albuterol Sulfate 3 ML AMPUL.NEB INHALATION (10:33)
[2021-08-19 10:40] LABS: Absolute Lymphocyte Count 1.29 X10^3/uL (0.83-4.51); Absolute Neutrophil Count 11.6 X10^3/uL (2.0-7.7); Basophil# 0.03 X10^3/uL; Basophil% 0.2 % (0-1); Eosinophil# 0.12 X10^3/uL; Eosinophils% 0.8 % (0-5); Hematocrit 39.9 % (40-54); Hemoglobin 13.2 g/dL (13.0-16.5); Lymphocyte # 1.29 X10^3/ul (0.83-4.51); Lymphocyte % 8.8 % (19-41); Mean Corp Hgb Conc 33.1 g/dL (32-36); Mean Corpuscular Hgb 29.3 pg (27.0-32.0); Mean Corpuscular Volume 88.5 fL (80-94); Monocyte# 1.58 X10^3/uL; Monocyte% 10.7 % (0-10); NRBC Flagged by Analyzer 0 % (0-5); Neutrophil # 11.58 X10^3/uL (2.7-7.7); Neutrophil % 78.6 % (47-70); POSITIVE COUNT YES; POSITIVE DIFFERENTIAL YES; RBC Distribution Width CV 12.6 % (11.6-14.6); Red Blood Count 4.51 M/mm3 (4.6-6.2); White Blood Count 14.7 K/mm3 (4.4-11.0)
[2021-08-19 10:42] LABS: Platelet Count 752 K/mm3 (150-450)
[2021-08-19 10:43] LABS: Differential Indicated SCAN CRITERIA MET
[2021-08-19 10:52] LABS: ALB/GLOB Ratio 0.4 RATIO (0.9-2.4); AST(SGOT) 27 U/L (15-37); Alanine Aminotransfer ALT/SGPT 55 U/L (16-61); Albumin, Serum 1.9 g/dL (3.2-5.0); Alkaline Phosphatase 136 U/L (45-117); Anion Gap 7 (5-15); BUN 15 mg/dL (7-18); BUN/Creat Ratio 16.6 RATIO (10-20); Calcium,Total 8.9 mg/dL (8.5-10.1); Chloride 103 mmol/L (98-107); EST Glomerular Filtration Rate 88 mL/min (>60); Est Glom Filt Rate - Afr Amer 106 mL/min (>60); Estimated Creatinine Clearance 74.19 ml/min; Globulin 4.5 g/dL (2.2-4.2); Glucose 124 mg/dL (74-106); Potassium 3.8 mmol/L (3.5-5.1); Protein, Total 6.4 g/dL (6.4-8.2); Sodium Level 135 mmol/L (136-145); Troponin-I HS 6 pg/mL (3.0-78.0)
[2021-08-19 11:02] LABS: Platelet Estimate MKD INC (ADEQ)
[2021-08-19 11:04] LABS: Lactic Acid 1.6 mmol/L (0.4-1.9)
--- NOTE | 2021-08-19 12:21 | HP.PCM.HOS_ITS ---
HPI - General General Date of Admission: 08/19/21 HPI Narrative JHOANA SPARKS, is a 70 M with a PMh as outlined who presents with a complaint of chest pain and pressure as well as shortness of breath which has been going for ~ 2 weeks prior to admission. He was recently admitted for community acquired pneumonia and discharged home on levaquin. He finished the course of levaquin, but still had persistent shortness of breath, so he followed up with his PCP, who put him on home oxygen and started him on a course of oral prednisone. Shortness of breath persisted so he came in to the ED. He denied fever or chills, but admitted to a cough. Review of systems was otherwise negative. Vital s showed BP of 127/86, pulse rate of 67, respiratory rate of 19 and temperature of 98.2 Fahrenheit and was saturating at 92% on oxygen. CBC showed WBC of 14.7 hemoglobin of 13.2 with platelets of 752. He does have chronically elevated platelets. Chemistry shows sodium of 135 and bicarb of 25 with creatinine of 0.9. CTA of the chest showed new infiltrate in the right upper lobe with progressive infiltrate in the right lower lobe and small bilateral pleural effusions greater on the right than the left and focal infiltrate in the posterior medial segment of the left lower lobe. He has been admitted to be managed for acute hypoxic respiratory failure due to right-sided community- acquired pneumonia which failed outpatient therapy. He was started on IV vancomycin, Zosyn and azithromycin in the ED. [facility] Medical History HLD (hyperlipidemia) HTN (hypertension) Pleural effusion, right Home Medications atenolol 25 mg PO DAILY 07/31/21 [History Last Taken Unknown] lisinopril 10 mg PO DAILY 07/31/21 [History Last Taken Unknown] tamsulosin 0.4 mg PO DAILY 07/31/21 [History Last Taken Unknown] aspirin 81 mg PO DAILY 08/01/21 [History Last Taken Unknown] levofloxacin 750 mg PO DAILY #7 tab 08/01/21 [Rx Last Taken Unknown] prednisone See Taper PO DAILY 08/19/21 [History Last Taken Unknown] sildenafil 100 mg PO PRN PRN 08/19/21 [History Last Taken Unknown] Allergy/AdvReac Type Severity Reaction Status Date / Time No Known Allergies Allergy Verified 11/15/21 09:42 Family History (Updated 08/01/21 @ 00:[address] Ajith García MD) Other Dementia Surgical History History of kidney surgery Social History Smoking Status: Never smoker substance use type: does not use ROS Constitutional Constitutional: Reports fatigue and malaise; Denies anorexia, change in weight, chills, fever(s), night sweats or weakness Eyes Eyes: Denies change in vision ENT HEENT: Denies dysphagia, headache(s) or hearing loss Cardiovascular Cardiovascular: Reports dyspnea on exertion and lightheadedness; Denies chest pain, edema, orthopnea, palpitations, paroxysmal nocturnal dyspnea, rapid heart rate or syncope Respiratory/Chest Respiratory/Chest: Reports cough, dyspnea, productive cough, shortness of breath at rest and shortness of breath with exertion; Denies excessive phlegm production, hemoptysis or wheezing Gastrointestinal Gastrointestinal: Denies abdominal pain, constipation, diarrhea, nausea or vomiting Genitourinary Genitourinary: Denies burning urination or dysuria Musculoskeletal Musculoskeletal: Denies arthralgias Neurologic Neurologic: Denies confusion Psychiatric Psychiatric: Denies anxiety or depression Endocrine Endocrinology: Denies change in body appearance Hematologic/Lymphatic Hematologic/Lymphatic: Denies anemia Vital Signs Vital Signs Vital Signs: 08/19/21 09:46 08/19/21 09:49 08/19/21 10:30 Temperature 98.2 F 98.2 F Temperature Source Oral Oral Pulse Rate 75 98 Respiratory Rate 22 H 23 H Respiratory Pattern Blood Pressure 160/84 H 160/84 H Blood Pressure Mean 109 109 Pulse Ox 90 90 Oxygen Delivery Method Nasal Cannula Room Air Nasal Cannula Oxygen Flow Rate (L/min) 6 6 6 08/19/21 10:34 08/19/21 10:41 08/19/21 10:49 Temperature 98.2 F Temperature Source Oral Pulse Rate 66 101 H 101 H Respiratory Rate 22 H 21 H 21 H Respiratory Pattern Tachypnea Blood Pressure 145/84 H 145/84 H Blood Pressure Mean 104 104 Pulse Ox 92 92 Oxygen Delivery Method Nasal Cannula Nasal Cannula Oxygen Flow Rate (L/min) 6 6 08/19/21 11:00 Temperature Temperature Source Pulse Rate Respiratory Rate 21 H Respiratory Pattern Blood Pressure Blood Pressure Mean Pulse Ox Oxygen Delivery Method Oxygen Flow Rate (L/min) Weight Weight: 186 lb 8.177 oz Body Mass Index (BMI) 27.5 Physical Exam Const alert, oriented x3 and no apparent distress General Appearance: cooperative HEENT normocephalic, head/scalp atraumatic, hearing grossly normal bilaterally and moist oral mucous membranes Eyes EOMs intact bilaterally and conjunctivae normal Neck no lymphadenopathy and supple Resp Resp Narrative: diminished breath sounds in right lung avitia, no wheezes or crackles. On 6L of oxygen. Cardio regular rate, regular rhythm, S1 normal heart sound, S2 normal heart sound and no murmurs GI normal to inspection, nondistended, normoactive bowel sounds, soft to palpation, non-tender and non-distended Extremity normal to inspection, full ROM and no clubbing, cyanosis or edema Peripheral Pulses: Yes pulses 2+ throughout Skin no rashes or lesions noted Neuro oriented x3, CN's II-XII intact bilaterally and moves all extremities Sensorium / Orientation: awake and alert Psych affect normal Results Lab / Micro Data Result Diagrams: 08/19/21 09:55 08/19/21 09:55 Labs: Laboratory Results - last 24 hr 08/19/21 09:55: WBC 14.7 H, RBC 4.51 L, Hgb 13.2, Hct 39.9 L, MCV 88.5, MCH 29.3, MCHC 33.1, RDW Std Deviation 41.0, RDW Coeff of Juliet 12.6, Plt Count 752 H* , MPV 9.0, Immature Gran % (Auto) 0.900, Neut % (Auto) 78.6 H, Lymph % (Auto) 8.8 L, [place] % (Auto) 10.7 H, Eos % (Auto) 0.8, Baso % (Auto) 0.2, Absolute Neuts (auto) 11.6 H, Absolute Lymphs (auto) 1.29, Nucleated RBC % 0, Differential Comment COMMENT, Diff Path Review May kristi Platelet Estimate MKD INC 08/19/21 09:55: Sodium 135 L, Potassium 3.8, Chloride 103, Carbon Dioxide 25.0, Anion Gap 7, BUN 15, Creatinine 0.90, Estim Creat Clear Calc 74.19, Est GFR ( RD) Af Amer 106, Est GFR (MDRD) Non-Af 88, BUN/Creatinine Ratio 16.6, Glucose 124 H, Calcium 8.9, Total Bilirubin 0.20, AST 27, ALT 55, Alkaline Phosphatase 136 H, Troponin I High Sens 6, Total Protein 6.4, Albumin 1.9 L, Globulin 4.5 H, Albumin/Globulin Ratio 0.4 L 08/19/21 10:30: Lactic Acid 1.6 Radiology Impression Chest CTA 08/19/21 10:24 IMPRESSION: New infiltration in the right upper lobe with progressive infiltrate in the right lower lobe. Small bilateral pleural effusions right greater than left. Focal infiltrate in the posterior medial segment of the left lower lobe. Electronically Signed: Andriy Hernandez MD at 11:39 EST , Service support , Assessment & Plan Assessment/Plan (1) Pneumonia: (2) Acute respiratory failure with hypoxia: PLAN: #Acute hypoxic respiratory failure due to community acquired pneumonia * Failed outpatient therapy with Levaquin * Admit to PCU * Started on IV Vanco, Zosyn and azithromycin in the ED. We will continue. * Get blood cultures and sputum cultures * Titrate oxygen to maintain saturation above 90% * Breathing treatments of bronchodilators. * Currently on 6 L of oxygen. * * Check urine for strep and Legionella. * #Hypertension: On atenolol and lisinopril #Thrombocytosis: * Platelets elevated in the 700s. * This appears to be chronic. * Counseled to follow-up with hematology on outpatient basis. * DVT prophylaxis: Lovenox CODE STATUS: full code * Patient counseled extensively about different types of CODE STATUS including full code, DNR CCA and DNR CCA. Patient elects to be full code * . Total [id number] time 17 minutes. Charges/Coding Visit Charges Inpatient E&M: 73086 Init Hosp L3 Procedures Hospitalists Procedures: 17969 Advncd Care Plan 30 Min
[2021-08-19] MEDS: 0.9% Normal Saline 1,000 ML 125 ML IV ×2 (14:28→23:58)
--- NOTE | 2021-08-19 15:23 | PCM.RX.CS ---
Consult Pharmacy has been consulted to manage selected antiobiotic: Vancomycin Type of Consult: New start Suspected Infection: Pneumonia Prior Doses of Antibiotics Received/Current Regimen: 08/19/2021 @ 1408 IN [facility] ER Labs: Sodium 135 mmol/L (136-145) L 08/19/21 09:55 Potassium 3.8 mmol/L (3.5-5.1) 08/19/21 09:55 Chloride 103 mmol/L (98-107) 08/19/21 09:55 Carbon Dioxide 25.0 mmol/L (21.0-32.0) 08/19/21 09:55 Anion Gap 7 (5-15) 08/19/21 09:55 BUN 15 mg/dL (7-18) 08/19/21 09:55 Creatinine 0.90 mg/dL (0.70-1.30) 08/19/21 09:55 Est GFR (MDRD) Af Amer 106 mL/min (>60) 08/19/21 09:55 Est GFR (MDRD) Non-Af 88 mL/min (>60) 08/19/21 09:55 BUN/Creatinine Ratio 16.6 RATIO (10-20) 08/19/21 09:55 Glucose 124 mg/dL (74-106) H 08/19/21 09:55 Microbiology: Microbiology 08/19/21 14:35 Urine, Clean Catch Legionella Antigen - Final 08/19/21 14:35 Urine, Clean Catch Streptococcus pneumoniae Antigen (M - Final Weight used for dosin kg Estimated Creatinine Clearance: 74 CRCL Goal Trough: 15-20 mcg/mL Pharmacy Plan for Drug DosinMG GIVEN EVERY 12 HOURS WITH A TROUGH LEVEL TO BE DRAWN 08/21/20 @0130 Pharmacy Service will continue to monitor and adjust dosing as required. Follow-Up Labs: Trough Vancomycin Labs to be done on [date and time ordered]: 08/21/21 @0130
--- NOTE | 2021-08-19 17:48 | PCS.PANDOC ---
PANDEMIC DOCUMENTATION INITIATED: Date: 05/20/2021 Time: 190
--- NOTE | 2021-08-19 17:51 | NURSING ---
This RN taking over care of pt at this time.
--- NOTE | 2021-08-19 21:23 | PCS.PANDOC ---
PANDEMIC DOCUMENTATION INITIATED: Date: 05/20/2021 Time: 190
[2021-08-20] VITALS (14 sets, daily range): BP systolic 125–155; BP diastolic 76–81; PULSE 48–68; RESP 14–18; TEMP 36.7–36.8; O2SAT 90–93
[2021-08-20] MEDS: Vancomycin IV 1,000 MG/200 ML BAG 200 MG IV ×2 (02:10→12:06)
[2021-08-20] MEDS: Acetaminophen 325 MG Tablet 650 MG PO (03:20)
[2021-08-20 05:45] LABS: Absolute Lymphocyte Count 1.28 X10^3/uL (0.83-4.51); Basophil# 0.01 X10^3/uL; Basophil% 0.1 % (0-1); Eosinophil# 0.17 X10^3/uL; Eosinophils% 1.6 % (0-5); Hemoglobin 11.7 g/dL (13.0-16.5); Lymphocyte # 1.28 X10^3/ul (0.83-4.51); Lymphocyte % 12.2 % (19-41); Mean Corp Hgb Conc 33.4 g/dL (32-36); Mean Corpuscular Hgb 29.5 pg (27.0-32.0); Mean Corpuscular Volume 88.2 fL (80-94); Mean Platelet Vol. 8.6 fl (6.2-12.0); Monocyte# 0.94 X10^3/uL; NRBC Flagged by Analyzer 0 % (0-5); Neutrophil % 76.1 % (47-70); Platelet Count 567 K/mm3 (150-450); RBC Distribution Width CV 12.6 % (11.6-14.6); Red Blood Count 3.97 M/mm3 (4.6-6.2); White Blood Count 10.5 K/mm3 (4.4-11.0)
[2021-08-20 06:13] LABS: Anion Gap 5 (5-15); BUN 14 mg/dL (7-18); BUN/Creat Ratio 19.3 RATIO (10-20); Calcium,Total 8.2 mg/dL (8.5-10.1); Chloride 105 mmol/L (98-107); Creatinine, Serum 0.73 mg/dL (0.70-1.30); EST Glomerular Filtration Rate 113 mL/min (>60); Est Glom Filt Rate - Afr Amer 136 mL/min (>60); Estimated Creatinine Clearance 66.77 ml/min; Glucose 88 mg/dL (74-106); Potassium 3.7 mmol/L (3.5-5.1); Sodium Level 137 mmol/L (136-145)
[2021-08-20] MEDS: Lisinopril 10 MG Tablet PO (08:50)
[2021-08-20] MEDS: Atenolol 25 MG Tablet PO (08:50)
[2021-08-20] MEDS: Enoxaparin 40 MG/0.4 ML Syringe SC (08:50)
[2021-08-20] MEDS: Tamsulosin HCl 0.4 MG Capsule PO (08:51)
--- NOTE | 2021-08-20 11:21 | PN.HOSP_ITS ---
Subjective Subjective Patient seen and examined. He is feeling better today. He feels her shortness of breath has improved. He still not having any cough. Review of systems otherwise negative. He is down to 4 L of oxygen today. Objective Data Objective Data Vital Signs: Vital Signs Temp Pulse Resp BP Pulse Ox 98.0 F 66 15 154/81 H 93 08/20/21 08:00 08/20/21 08:00 08/20/21 08:00 08/20/21 08:00 08/20/21 08:00 Oxygen Flow Rate (L/min) 4 Oxygen Delivery Method Nasal Cannula Weight: 175 lb 0.752 oz Body Mass Index (BMI) 25.8 Intake & Output: Intake and Output for Last 24 Hours 08/18/21 08/19/21 08/20/21 23:59 23:59 23:59 Intake Total 1580.00 / 1580.00 1914 Balance 1580.00 / 1580.00 1914 Lab / Micro Data Result Diagrams: 08/20/21 05:24 08/20/21 05:24 Labs: Laboratory Results - last 24 hr 08/19/21 12:27: COVID-19 (CARLOS) Not Detected 08/20/21 05:24: WBC 10.5, RBC 3.97 L, Hgb 11.7 L, Hct 35.0 L, MCV 88.2, MCH 29.5, MCHC 33.4, RDW Std Deviation 41.0, RDW Coeff of Juliet 12.6, Plt Count 567 H, MPV 8.6, Immature Gran % (Auto) 1.000 H, Neut % (Auto) 76.1 H, Lymph % (Auto) 12.2 L, [place] % (Auto) 9.0, Eos % (Auto) 1.6, Baso % (Auto) 0.1, Absolute Neuts (auto) 8.0 H, Absolute Lymphs (auto) 1.28, Nucleated RBC % 0 08/20/21 05:24: Sodium 137, Potassium 3.7, Chloride 105, Carbon Dioxide 27.0, Anion Gap 5, BUN 14, Creatinine 0.73, Estim Creat Clear Calc 66.77, Est GFR (MDRD) Af Amer 136, Est GFR (MDRD) Non-Af 113, BUN/Creatinine Ratio 19.3, Glucose 88, Calcium 8.2 L Micro: Microbiology 08/19/21 14:35 Urine, Clean Catch Legionella Antigen - Final 08/19/21 14:35 Urine, Clean Catch Streptococcus pneumoniae Antigen (M - Final Radiography Diagnostic Testing: Radiology Impression Chest CTA 08/19/21 10:24 IMPRESSION: New infiltration in the right upper lobe with progressive infiltrate in the right lower lobe. Small bilateral pleural effusions right greater than left. Focal infiltrate in the posterior medial segment of the left lower lobe. Electronically Signed: Andriy Hernandez MD at 11:39 EST , Service support , Physical Exam Const alert, oriented x3 and no apparent distress General Appearance: cooperative HEENT normocephalic, head/scalp atraumatic, hearing grossly normal bilaterally and moist oral mucous membranes Head and Scalp: normocephalic Eyes PERRL, EOMs intact bilaterally and conjunctivae normal Neck no lymphadenopathy and supple Resp Resp Narrative: diminished breath sounds in right lung avitia, no wheezes or crackles. On 4L of oxygen. Cardio regular rate, regular rhythm, S1 normal heart sound, S2 normal heart sound and no murmurs GI normal to inspection, nondistended, normoactive bowel sounds, soft to palpation, non-tender and non-distended Extremity normal to inspection, full ROM and no clubbing, cyanosis or edema Peripheral Pulses: Yes pulses 2+ throughout Skin no rashes or lesions noted Neuro oriented x3, CN's II-XII intact bilaterally and moves all extremities Sensorium / Orientation: awake and alert Psych affect normal Assessment & Plan Assessment/Plan (1) Pneumonia: (2) Acute respiratory failure with hypoxia: PLAN: #Acute hypoxic respiratory failure due to community acquired pneumonia * feeling better today. Down to 4L of oxygen * on IV vancomycin, zosyn and azithromycin. * blood cultures pending * Titrate oxygen to maintain saturation above 90%. Breathing treatments bronchodilators. * WBC is down to 10.5 today. * Urine for strep and Legionella were negative. * * #Hypertension: On atenolol and lisinopril #Thrombocytosis: * platelets down in the 500s today. * This appears to be chronic. * Counseled to follow-up with hematology on outpatient basis. * DVT prophylaxis: Lovenox CODE STATUS: full code * Charges/Coding Visit Charges Inpatient E&M: 30257 Subs Hosp L2
[2021-08-20 12:23] LABS: Pathologist Review Reviewed
--- NOTE | 2021-08-20 15:40 | NURSING ---
ambulating in [place] with therapy, became dizzy/lightheaded and SOB, O2 was increased to 6L NC, assisted to wheelchair and back to room in bed, this RN obtained vitals, patient stated I am feeling better now that I am back in bed, I think I exerted too much with just washing up in bathroom then ambulating in halls. 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
--- NOTE | 2021-08-20 16:53 | CASEMGMT ---
DANAE ROSEN readmission note: Prior admission: Admitted 07/31/21 w/Sepsis secondary to pneumonia. Discharged home with on PO atb's 08/01/21. He did not qualify for home O2 on day of discharge. Current admission: Admitted 08/19/21 w/respiratory failure d/t pneumonia. Pt had completed the course of PO Atb's since last admission. He continued to have SOB and had f/u appt w/his PCP who started him on po Prednisone and put him on Home O2. SOB persisted and he came back to [facility] ER via squad. WBC 14.7 on admit. Platelets 752. CT chest showed new consolidation rt upper lobe and superior segment of lt lower lobe, and persistent consolidation in rt lower lobe. BC's obtained. Pulse ox 83% on RA in ED. Placed on 6 l/m O2. DANAE ROSEN will continue to follow for any discharge needs. Reece AGUIRREN DANAE ROSEN
[2021-08-21] VITALS (11 sets, daily range): BP systolic 125–141; BP diastolic 72–87; PULSE 58–84; RESP 14–16; TEMP 36.5–36.9; O2SAT 91–94
[2021-08-21] MEDS: Vancomycin IV 1,000 MG/200 ML BAG 200 MG IV (03:01)
--- NOTE | 2021-08-21 04:03 | PCM.RX.CS ---
Consult Pharmacy has been consulted to manage selected antiobiotic: Vancomycin Type of Consult: Follow-up Suspected Infection: Pneumonia Labs: Sodium 137 mmol/L (136-145) 08/20/21 05:24 Potassium 3.7 mmol/L (3.5-5.1) 08/20/21 05:24 Chloride 105 mmol/L (98-107) 08/20/21 05:24 Carbon Dioxide 27.0 mmol/L (21.0-32.0) 08/20/21 05:24 Anion Gap 5 (5-15) 08/20/21 05:24 BUN 14 mg/dL (7-18) 08/20/21 05:24 Creatinine 0.73 mg/dL (0.70-1.30) 08/20/21 05:24 Est GFR (MDRD) Af Amer 136 mL/min (>60) 08/20/21 05:24 Est GFR (MDRD) Non-Af 113 mL/min (>60) 08/20/21 05:24 BUN/Creatinine Ratio 19.3 RATIO (10-20) 08/20/21 05:24 Glucose 88 mg/dL (74-106) 08/20/21 05:24 Vancomycin Trough 9.0 ug/mL (5.0-15.0) 08/21/21 01:15 Microbiology: Microbiology 08/19/21 14:35 Urine, Clean Catch Legionella Antigen - Final 08/19/21 14:35 Urine, Clean Catch Streptococcus pneumoniae Antigen (M - Final Goal Trough: 15-20 mcg/mL Pharmacy Plan for Drug Dosing: VANCOMYCIN LEVEL RECEIVED Current Vancomycin Dose: 1000mg IV Q12h Number of Doses Received: 4 (3 prior to trough draw) Vancomycin Level: 9 Hours Since Last Dose: 13hr Renal Function: 0.73 Renal Function Trend: stable Lab/Micro: pending Vancomycin Plan/Comments: Trough resulted in a value of 9 (drawn ~13hr from last scheduled administration). The trough is likely slightly higher, goal trough is 15-20. Will slightly increase vancomycin dose, and will give increased dose ~8hr from last scheduled dose this morning. Will start Vancomycin 1250mg IV Q12hr to start 08/21/21 @1100 Pending Level: 08/22/21 @2230, prior to 4th dose of new regimen. Pharmacy Service will continue to monitor and adjust dosing as required.
[2021-08-21 06:11] LABS: Absolute Neutrophil Count 7.4 X10^3/uL (2.0-7.7); Basophil# 0.04 X10^3/uL; Basophil% 0.4 % (0-1); Eosinophil# 0.54 X10^3/uL; Eosinophils% 5.1 % (0-5); Hematocrit 36.8 % (40-54); Hemoglobin 12.3 g/dL (13.0-16.5); Lymphocyte % 12.4 % (19-41); Mean Corp Hgb Conc 33.4 g/dL (32-36); Mean Corpuscular Hgb 29.6 pg (27.0-32.0); Mean Corpuscular Volume 88.5 fL (80-94); Mean Platelet Vol. 8.8 fl (6.2-12.0); Monocyte# 1.16 X10^3/uL; NRBC Flagged by Analyzer 0 % (0-5); Neutrophil # 7.35 X10^3/uL (2.7-7.7); Neutrophil % 70.1 % (47-70); Platelet Count 580 K/mm3 (150-450); RBC Distribution Width CV 12.6 % (11.6-14.6); RBC Distribution Width SD 40.9 fl (35.1-43.9); Red Blood Count 4.16 M/mm3 (4.6-6.2); White Blood Count 10.5 K/mm3 (4.4-11.0)
[2021-08-21 06:56] LABS: BUN 16 mg/dL (7-18); Creatinine, Serum 0.83 mg/dL (0.70-1.30); EST Glomerular Filtration Rate 97 mL/min (>60); Estimated Creatinine Clearance 80.45 ml/min; Glucose 90 mg/dL (74-106)
[2021-08-21 06:57] LABS: Anion Gap 4 (5-15); BUN/Creat Ratio 19.3 RATIO (10-20); Calcium,Total 8.4 mg/dL (8.5-10.1); Chloride 102 mmol/L (98-107); Est Glom Filt Rate - Afr Amer 117 mL/min (>60); Potassium 3.8 mmol/L (3.5-5.1); Sodium Level 135 mmol/L (136-145)
[2021-08-21] MEDS: Tamsulosin HCl 0.4 MG Capsule PO (08:06)
[2021-08-21] MEDS: Enoxaparin 40 MG/0.4 ML Syringe SC (09:44)
[2021-08-21] MEDS: Lisinopril 10 MG Tablet PO (09:44)
[2021-08-21] MEDS: Atenolol 25 MG Tablet PO (09:44)
--- NOTE | 2021-08-21 10:14 | CASEMGMT ---
Per Ioana, pt was set up with 2L at rest and 4L w/ exertion on 08/08/21 by his PCP. Pt to be tested prior to discharge. Joe FINK CM
[2021-08-21] MEDS: 0.9% Saline Lock 10 ML Syringe IV (11:44)
--- NOTE | 2021-08-21 12:34 | PCM.PN.HOSP ---
Subjective Subjective Patient seen and examined. He has no active complaints. He is frustrated that he isnt recovering as quickly as he would like. Review of systems is otherwise negative. He is down to 3 L of oxygen. Objective Data Objective Data Vital Signs: Vital Signs Temp Pulse Resp BP Pulse Ox 97.7 F L 62 14 141/87 H 94 08/21/21 07:48 08/21/21 11:37 08/21/21 07:48 08/21/21 07:48 08/21/21 11:19 Oxygen Flow Rate (L/min) 3 Oxygen Delivery Method Nasal Cannula Weight: 175 lb 0.752 oz Body Mass Index (BMI) 25.8 Intake & Output: Intake and Output for Last 24 Hours 08/19/21 08/20/21 08/21/21 23:59 23:59 23:59 Intake Total 1580.00 / 1580.00 2165 / 2165 540 / 540 Balance 1580.00 / 1580.00 2165 / 2165 540 / 540 Lab / Micro Data Result Diagrams: 08/21/21 05:42 08/21/21 05:42 Labs: Laboratory Results - last 24 hr 08/21/21 01:15: Vancomycin Trough 9.0 08/21/21 05:42: WBC 10.5, RBC 4.16 L, Hgb 12.3 L, Hct 36.8 L, MCV 88.5, MCH 29.6, MCHC 33.4, RDW Std Deviation 40.9, RDW Coeff of Juliet 12.6, Plt Count 580 H, MPV 8.8, Immature Gran % (Auto) 1.000 H, Neut % (Auto) 70.1 H, Lymph % (Auto) 12.4 L, [place] % (Auto) 11.0 H, Eos % (Auto) 5.1 H, Baso % (Auto) 0.4, Absolute Neuts (auto) 7.4, Absolute Lymphs (auto) 1.30, Nucleated RBC % 0 08/21/21 05:42: Sodium 135 L, Potassium 3.8, Chloride 102, Carbon Dioxide 29.0, Anion Gap 4 L, BUN 16, Creatinine 0.83, Estim Creat Clear Calc 80.45, Est GFR (MDRD) Af Amer 117, Est GFR (MDRD) Non-Af 97, BUN/Creatinine Ratio 19.3, Glucose 90, Calcium 8.4 L Micro: Microbiology 08/19/21 12:33 Blood Culture (Wb) - Anticubital Left Blood Culture - Preliminary No growth in 48 hours. 08/19/21 12:28 Blood Culture (Wb) - Anticubital Right Blood Culture - Preliminary No growth in 48 hours. 08/19/21 14:35 Urine, Clean Catch Legionella Antigen - Final 08/19/21 14:35 Urine, Clean Catch Streptococcus pneumoniae Antigen (M - Final
[2021-08-22] VITALS (13 sets, daily range): BP systolic 111–160; BP diastolic 72–87; PULSE 55–101; RESP 16–18; TEMP 36.6–37.1; O2SAT 83–94
[2021-08-22 07:02] LABS: Absolute Lymphocyte Count 1.18 X10^3/uL (0.83-4.51); Absolute Neutrophil Count 8.5 X10^3/uL (2.0-7.7); Basophil# 0.06 X10^3/uL; Basophil% 0.5 % (0-1); Eosinophil# 0.66 X10^3/uL; Eosinophils% 5.7 % (0-5); Hematocrit 38.9 % (40-54); Hemoglobin 12.6 g/dL (13.0-16.5); Lymphocyte # 1.18 X10^3/ul (0.83-4.51); Lymphocyte % 10.1 % (19-41); Mean Corp Hgb Conc 32.4 g/dL (32-36); Mean Corpuscular Hgb 29.2 pg (27.0-32.0); Mean Corpuscular Volume 90.3 fL (80-94); Mean Platelet Vol. 8.8 fl (6.2-12.0); Monocyte# 1.08 X10^3/uL; Monocyte% 9.3 % (0-10); NRBC Flagged by Analyzer 0 % (0-5); Neutrophil # 8.53 X10^3/uL (2.7-7.7); Platelet Count 596 K/mm3 (150-450); RBC Distribution Width CV 12.7 % (11.6-14.6); RBC Distribution Width SD 42.3 fl (35.1-43.9); Red Blood Count 4.31 M/mm3 (4.6-6.2); White Blood Count 11.7 K/mm3 (4.4-11.0)
[2021-08-22 07:36] LABS: Anion Gap 3 (5-15); BUN 13 mg/dL (7-18); BUN/Creat Ratio 13.4 RATIO (10-20); Calcium,Total 8.5 mg/dL (8.5-10.1); Chloride 104 mmol/L (98-107); Creatinine, Serum 0.97 mg/dL (0.70-1.30); EST Glomerular Filtration Rate 81 mL/min (>60); Est Glom Filt Rate - Afr Amer 98 mL/min (>60); Estimated Creatinine Clearance 68.84 ml/min; Glucose 90 mg/dL (74-106); Potassium 4.6 mmol/L (3.5-5.1); Sodium Level 137 mmol/L (136-145)
[2021-08-22] MEDS: Tamsulosin HCl 0.4 MG Capsule PO (08:24)
[2021-08-22] MEDS: Enoxaparin 40 MG/0.4 ML Syringe SC (08:25)
[2021-08-22] MEDS: Lisinopril 10 MG Tablet PO (08:25)
[2021-08-22] MEDS: Atenolol 25 MG Tablet PO (08:25)
--- NOTE | 2021-08-22 10:57 | PN.HOSP_ITS ---
Subjective Subjective Patient seen and examined. He was quite distraught this morning because his dog has just this morning. He had thought he was improving, and thinks that the of his dog may have contributed to his breathing not improving. He was on 2L of oxygen, and denies any fever, chills, cough, chest pain, palpitations, dizziness, nausea or vomiting. Review of systems is otherwise negative. He had walking pulse ox today and required up to 8L of oxygen. Objective Data Objective Data Vital Signs: Vital Signs Temp Pulse Resp BP Pulse Ox 98.8 F 68 18 160/87 H 86 08/22/21 07:55 08/22/21 07:55 08/22/21 07:55 08/22/21 07:55 08/22/21 08:36 Oxygen Flow Rate (L/min) [ 8 AMBULATING with Oxygen #3] Oxygen Flow Rate (L/min) [ 6 AMBULATING with Oxygen #2] Oxygen Flow Rate (L/min) [ 4 AMBULATING with Oxygen #1] Oxygen Flow Rate (L/min) [At 2 REST with Oxygen] Oxygen Flow Rate (L/min) 2 Oxygen Delivery Method Nasal Cannula Weight: 175 lb 0.752 oz Body Mass Index (BMI) 25.8 Intake & Output: Intake and Output for Last 24 Hours 08/20/21 08/21/21 08/22/21 23:59 23:59 23:59 Intake Total 2165 / 2165 1360 / 1360 565 / 565 Balance 2165 / 2165 1360 / 1360 565 / 565 Lab / Micro Data Result Diagrams: 08/22/21 06:10 08/22/21 06:10 Labs: Laboratory Results - last 24 hr 08/22/21 06:10: WBC 11.7 H, RBC 4.31 L, Hgb 12.6 L, Hct 38.9 L, MCV 90.3, MCH 29.2, MCHC 32.4, RDW Std Deviation 42.3, RDW Coeff of Juliet 12.7, Plt Count 596 H, MPV 8.8, Immature Gran % (Auto) 1.400 H, Neut % (Auto) 73.0 H, Lymph % (Auto) 10.1 L, [place] % (Auto) 9.3, Eos % (Auto) 5.7 H, Baso % (Auto) 0.5, Absolute Neuts (auto) 8.5 H, Absolute Lymphs (auto) 1.18, Nucleated RBC % 0 08/22/21 06:10: Sodium 137, Potassium 4.6, Chloride 104, Carbon Dioxide 30.0, Anion Gap 3 L, BUN 13, Creatinine 0.97, Estim Creat Clear Calc 68.84, Est GFR (MDRD) Af Amer 98, Est GFR (MDRD) Non-Af 81, BUN/Creatinine Ratio 13.4, Glucose 90, Calcium 8.5 Micro: Microbiology 08/19/21 12:33 Blood Culture (Wb) - Anticubital Left Blood Culture - Preliminary No growth in 48 hours. 08/19/21 12:28 Blood Culture (Wb) - Anticubital Right Blood Culture - Preliminary No growth in 48 hours. 08/19/21 14:35 Urine, Clean Catch Legionella Antigen - Final 08/19/21 14:35 Urine, Clean Catch Streptococcus pneumoniae Antigen (M - Final Physical Exam Const alert, oriented x3 and no apparent distress General Appearance: cooperative Exam Limitations: no limitations HEENT normocephalic, head/scalp atraumatic, hearing grossly normal bilaterally and moist oral mucous membranes Head and Scalp: normocephalic Eyes PERRL, EOMs intact bilaterally and conjunctivae normal Neck no lymphadenopathy and supple Resp Resp Narrative: diminished breath sounds in right lung avitia, no wheezes or crackles. On 3L of oxygen. Cardio regular rate, regular rhythm, S1 normal heart sound, S2 normal heart sound and no murmurs GI normal to inspection, nondistended, normoactive bowel sounds, soft to palpation, non-tender and non-distended Extremity normal to inspection, full ROM and no clubbing, cyanosis or edema Peripheral Pulses: Yes pulses 2+ throughout Skin no rashes or lesions noted Neuro oriented x3, CN's II-XII intact bilaterally and moves all extremities Sensorium / Orientation: awake and alert Psych affect normal Assessment & Plan Assessment/Plan (1) Pneumonia: (2) Acute respiratory failure with hypoxia: PLAN: #Acute hypoxic respiratory failure due to community acquired pneumonia * on 3L of oxygen. * on IV vancomycin, zosyn and azithromycin. * blood cultures are negative. * Titrate oxygen to maintain saturation above 90%. Breathing treatments bronchodilators. * WBC is 11.7 today * Urine for strep and Legionella were negative. * required up to 8L of oxygen with walking pulse ox. * continue titrating oxygen to maintain sats >90% * #Hypertension: On atenolol and lisinopril #Thrombocytosis: * platelets are 596 today * This appears to be chronic. * Counseled to follow-up with hematology on outpatient basis. * DVT prophylaxis: Lovenox CODE STATUS: full code * Charges/Coding Visit Charges Inpatient E&M: 43509 Subs Hosp L2
--- NOTE | 2021-08-22 16:01 | CASEMGMT ---
RN SILAS NOTE: Pt screened with [facility] Palliative Care Screening Tool d/t readmission, pt does not meet criteria. Reece AGUIRREN RN CM
[2021-08-22 20:53] LABS: Vancomycin, Trough Level 16.9 ug/mL (5.0-15.0)
--- NOTE | 2021-08-22 23:12 | PCM.RX.CS ---
Consult Pharmacy has been consulted to manage selected antiobiotic: Vancomycin Type of Consult: Follow-up Labs: Sodium 137 mmol/L (136-145) 08/22/21 06:10 Potassium 4.6 mmol/L (3.5-5.1) 08/22/21 06:10 Chloride 104 mmol/L (98-107) 08/22/21 06:10 Carbon Dioxide 30.0 mmol/L (21.0-32.0) 08/22/21 06:10 Anion Gap 3 (5-15) L 08/22/21 06:10 BUN 13 mg/dL (7-18) 08/22/21 06:10 Creatinine 0.97 mg/dL (0.70-1.30) 08/22/21 06:10 Est GFR (MDRD) Af Amer 98 mL/min (>60) 08/22/21 06:10 Est GFR (MDRD) Non-Af 81 mL/min (>60) 08/22/21 06:10 BUN/Creatinine Ratio 13.4 RATIO (10-20) 08/22/21 06:10 Glucose 90 mg/dL (74-106) 08/22/21 06:10 Vancomycin Trough 16.9 ug/mL (5.0-15.0) H 08/22/21 20:12 Microbiology: Microbiology 08/19/21 12:33 Blood Culture (Wb) - Anticubital Left Blood Culture - Preliminary No growth in 48 hours. 08/19/21 12:28 Blood Culture (Wb) - Anticubital Right Blood Culture - Preliminary No growth in 48 hours. 08/19/21 14:35 Urine, Clean Catch Legionella Antigen - Final 08/19/21 14:35 Urine, Clean Catch Streptococcus pneumoniae Antigen (M - Final Goal Trough: 15-20 mcg/mL Pharmacy Plan for Drug Dosing: Pharmacy Service will continue to monitor and adjust dosing as required. TROUGH 16.9 AT 10 HRS. NO CHANGES PER GOAL -, RECHECK TROUGH IN 2 DAYS Follow-Up Labs: Trough Vancomycin Labs to be done on [date and time ordered]: 08/24 @ 3079
[2021-08-23] VITALS (8 sets, daily range): BP systolic 140–151; BP diastolic 84–89; PULSE 63–84; RESP 18; TEMP 36.4–36.7; O2SAT 86–94
[2021-08-23 06:47] LABS: Absolute Lymphocyte Count 1.08 X10^3/uL (0.83-4.51); Absolute Neutrophil Count 7.4 X10^3/uL (2.0-7.7); Basophil# 0.05 X10^3/uL; Basophil% 0.5 % (0-1); Eosinophil# 0.62 X10^3/uL; Hematocrit 37.3 % (40-54); Hemoglobin 12.4 g/dL (13.0-16.5); Lymphocyte # 1.08 X10^3/ul (0.83-4.51); Lymphocyte % 10.5 % (19-41); Mean Corp Hgb Conc 33.2 g/dL (32-36); Mean Corpuscular Hgb 29.2 pg (27.0-32.0); Mean Platelet Vol. 8.8 fl (6.2-12.0); Monocyte# 0.96 X10^3/uL; Monocyte% 9.3 % (0-10); NRBC Flagged by Analyzer 0 % (0-5); Neutrophil # 7.44 X10^3/uL (2.7-7.7); Neutrophil % 72.2 % (47-70); Platelet Count 557 K/mm3 (150-450); RBC Distribution Width CV 12.9 % (11.6-14.6); RBC Distribution Width SD 41.4 fl (35.1-43.9); Red Blood Count 4.24 M/mm3 (4.6-6.2); White Blood Count 10.3 K/mm3 (4.4-11.0)
[2021-08-23 07:10] LABS: Anion Gap 5 (5-15); BUN 12 mg/dL (7-18); BUN/Creat Ratio 14.3 RATIO (10-20); Calcium,Total 8.2 mg/dL (8.5-10.1); Chloride 105 mmol/L (98-107); Creatinine, Serum 0.84 mg/dL (0.70-1.30); EST Glomerular Filtration Rate 96 mL/min (>60); Est Glom Filt Rate - Afr Amer 116 mL/min (>60); Estimated Creatinine Clearance 79.49 ml/min; Glucose 93 mg/dL (74-106); Sodium Level 137 mmol/L (136-145)
[2021-08-23] MEDS: Atenolol 25 MG Tablet PO (08:39)
[2021-08-23] MEDS: Lisinopril 10 MG Tablet PO (08:39)
[2021-08-23] MEDS: Enoxaparin 40 MG/0.4 ML Syringe SC (08:39)
[2021-08-23] MEDS: Tamsulosin HCl 0.4 MG Capsule PO (08:39)
--- NOTE | 2021-08-23 11:12 | DS.PCM_ITS ---
Providers Date of Admission: 08/19/21 Primary Care Physician: Dr. Teetee Mcdowell MD Reason For Visit: RESPIRATORY FAILURE DUE TO PNEUMONIA Diagnosis Discharge Diagnosis (1) Pneumonia: Status: Acute Code(s): J18.9 - Pneumonia, unspecified organism (2) Acute respiratory failure with hypoxia: Status: Acute Code(s): J96.01 - Acute respiratory failure with hypoxia Medications at Discharge Home Medications atenolol 25 mg PO DAILY 07/31/21 lisinopril 10 mg PO DAILY 07/31/21 tamsulosin 0.4 mg PO DAILY 07/31/21 aspirin 81 mg PO DAILY 08/01/21 sildenafil 100 mg PO PRN PRN 08/19/21 levofloxacin 750 mg PO DAILY #3 tab 08/23/21 Hospital Course Operations None Procedures None Summary of Care Provided Minutes Spent on Discharge: 45 Hospital Course: JHOANA SPARKS, is a 70 M with a h as outlined who presents with a complaint of chest pain and pressure as well as shortness of breath which has been going for ~ 2 weeks prior to admission. He was recently admitted for community acquired pneumonia and discharged home on levaquin. He finished the course of levaquin, but still had persistent shortness of breath, so he followed up with his PCP, who put him on home oxygen and started him on a course of oral prednisone. Shortness of breath persisted so he came in to the ED. He denied fever or chills, but admitted to a cough. Review of systems was otherwise nega tive. Vitals showed BP of 127/86, pulse rate of 67, respiratory rate of 19 and temperature of 98.2 Fahrenheit and was saturating at 92% on oxygen. CBC showed WBC of 14.7 hemoglobin of 13.2 with platelets of 752. He does have chronically elevated platelets. Chemistry shows sodium of 135 and bicarb of 25 with creatinine of 0.9. CTA of the chest showed new infiltrate in the right upper lobe with progressive infiltrate in the right lower lobe and small bilateral pleural effusions greater on the right than the left and focal infiltrate in the posterior medial segment of the left lower lobe. He was admitted to be managed for acute hypoxic respiratory failure due to right-sided community-acquired pneumonia which failed outpatient therapy. He was started on IV vancomycin, Zosyn and azithromycin in the ED and these were continued. Urine for strep and Legionella were negative and blood cultures were also negative. Shortness of breath gradually improved and he was weaned down to 2 L of oxygen from 6 L on admission. Patient had walking pulse ox on 08/23/2021 which showed that he required 4 L of oxygen with ambulation to maintain saturation above 90%. Patient remained stable and was discharged home on 08/23/2021 on p.o. Levaquin 750 mg daily for 3 days, to complete a 7-day course. He is to follow-up with his primary care doctor in 1 week. Patient seen and examined prior to discharge. He felt much better and had no active complaints. Review of symptoms otherwise negative. Labs and vitals reviewed. Home medication reviewed and reconciled. Physical Exam Const alert, oriented x3 and no apparent distress General Appearance: cooperative Exam Limitations: no limitations HEENT normocephalic, head/scalp atraumatic, hearing grossly normal bilaterally and moist oral mucous membranes Eyes PERRL, EOMs intact bilaterally and conjunctivae normal Neck no lymphadenopathy and supple Resp Resp Narrative: diminished breath sounds in right lung avitia, no wheezes or crackles. On 3L of oxygen. Cardio regular rate, regular rhythm, S1 normal heart sound, S2 normal heart sound and no murmurs GI normal to inspection, nondistended, normoactive bowel sounds, soft to palpation, non-tender and non-distended Extremity normal to inspection, full ROM and no clubbing, cyanosis or edema Skin no rashes or lesions noted Neuro oriented x3, CN's II-XII intact bilaterally and moves all extremities Sensorium / Orientation: awake and alert Psych affect normal Weight / BMI Weight Weight: 175 lb 0.752 oz Body Mass Index (BMI) 25.8 ABG / Lab / Microbiology Data Result Diagrams: 08/23/21 06:21 08/23/21 06:21 Laboratory: Laboratory Results - last 24 hr 08/22/21 20:12: Vancomycin Trough 16.9 H 08/23/21 06:21: WBC 10.3, RBC 4.24 L, Hgb 12.4 L, Hct 37.3 L, MCV 88.0, MCH 29.2, MCHC 33.2, RDW Std Deviation 41.4, RDW Coeff of Juliet 12.9, Plt Count 557 H, MPV 8.8, Immature Gran % (Auto) 1.500 H, Neut % (Auto) 72.2 H, Lymph % (Auto) 10.5 L, [place] % (Auto) 9.3, Eos % (Auto) 6.0 H, Baso % (Auto) 0.5, Absolute Neuts (auto) 7.4, Absolute Lymphs (auto) 1.08, Nucleated RBC % 0 08/23/21 06:21: Sodium 137, Potassium 4.0, Chloride 105, Carbon Dioxide 27.0, Anion Gap 5, BUN 12, Creatinine 0.84, Estim Creat Clear Calc 79.49, Est GFR (MDRD) Af Amer 116, Est GFR (MDRD) Non-Af 96, BUN/Creatinine Ratio 14.3, Glucose 93, Calcium 8.2 L Microbiology: Microbiology 08/19/21 12:33 Blood Culture (Wb) - Anticubital Left Blood Culture - Preliminary No growth in 48 hours. 08/19/21 12:28 Blood Culture (Wb) - Anticubital Right Blood Culture - Preliminary No growth in 48 hours. 08/19/21 14:35 Urine, Clean Catch Legionella Antigen - Final 08/19/21 14:35 Urine, Clean Catch Streptococcus pneumoniae Antigen (M - Final D/C Instructions Discharge Diet: Low fat / Low cholesterol Discharge Activity: Return to Normal Activity Weight Bearing Status: Weight bearing as tolerated Call your doctor if you observe: Fever of 101 or Higher, Shortness of breath, Di zziness, Swelling in the ankles and Chest pain Meaningful Use Info Meaningful Use Diagnoses (Choose all that apply): None applicable Discharge Plan Admission Admit Date/Time: 08/19/21 12:38 Primary Reason for Your Visit: community acquired pneumonia Attending Provider: Vangie Montoya Primary Care Provider: Teetee Mcdowell Instructions Patient Instructions: ED Pneumonia (Adult) Additional Instructions / Restrictions: use oxyen 2-4L o maintain sats >90% Discharge Orders/Prescriptions Prescriptions: New levofloxacin 750 mg tablet 750 mg PO DAILY Qty: 3 RF: 0 Continued atenolol 25 mg Tablet 25 mg PO DAILY RF: 0 tamsulosin 0.4 mg Capsule 0.4 mg PO DAILY RF: 0 lisinopril 10 mg Tablet 10 mg PO DAILY RF: 0 aspirin 81 mg Tablet,Delayed Release (Dr/Ec) 81 mg PO DAILY RF: 0 sildenafil 100 mg tablet 100 mg PO PRN PRN (Reason: Erectile Dysfunction) RF: 0 Discontinued levofloxacin 750 mg tablet 750 mg PO DAILY Qty: 7 RF: 0 prednisone 10 mg tablet See Taper mg PO DAILY RF: 0 Referrals / Follow Up: Teetee Mcdowell MD [Primary Care Provider] - In 1 Week Disposition Disposition (needs filled in before D/C Order can be placed): Home, Self Care Charges/Coding Visit Charges Inpatient E&M: 20224 Disch Hosp
--- NOTE | 2021-08-23 11:22 | CASEMGMT ---
Per therapy, pt does not have need for any further therapy at discharge and per nursing note, pt does not qualify for home oxygen. This RN CM to room to go over oxygen and discharge plan. Pt aware to wear 2L at rest and 4L w/ exertion to keep sats greater than 89%, voices understanding and also states that he was not doing this previously as he didn't want to be on that much oxygen and he thought it would be better if he didn't use as much. Pt once again advised by this RN SILAS and respiratory the importance of wearing the 2L at rest and 4L w/ exertion to keep sats greater than 89%, pt voices understanding. Pt voices no further questions/concerns/needs with discharge. SStaten RN SILAS
--- NOTE | 2021-08-23 11:53 | PHA.DC.MC ---
Pharmacy Service has performed discharge medication reconciliation and counseling for this patient. 1. LEVOFLOXACIN 750MG PO DAILY X 3 DAYS The patient's discharge medication list was reviewed for discrepancies and discrepancies were resolved. Home Medications atenolol 25 mg PO DAILY 07/31/21 lisinopril 10 mg PO DAILY 07/31/21 tamsulosin 0.4 mg PO DAILY 07/31/21 aspirin 81 mg PO DAILY 08/01/21 sildenafil 100 mg PO PRN PRN 08/19/21 levofloxacin 750 mg PO DAILY #3 tab 08/23/21 The patient was counseled on the following discharge medications and changes in medications for homegoing were reviewed. The Reason for Use, instructions for use, and potential side effects were reviewed for all new medications. The patient's questions regarding all of their medications were answered. The patient was able to verbally demonstrate an understanding of their discharge medications.
== END 2021-08-23 13:12 | disposition home or self-care (01) | DRG 193 ==
LOC: ED 12:32 → MS3 12:51 → PCU 13:18
PROVIDERS: Admitting Provider Student in an Organized Health Care Education/Training Program; Emergency Provider Emergency Medicine; PCP Internal Medicine; Visit Provider Student in an Organized Health Care Education/Training Program
DX: J18.9 Pneumonia, unspecified organism (principal); J96.01 Acute respiratory failure with hypoxia; J90 Pleural effusion, not elsewhere classified; D75.839 Thrombocytosis, unspecified; Z20.822 Contact with and (suspected) exposure to COVID-19; I10 Essential (primary) hypertension; E78.5 Hyperlipidemia, unspecified; Z99.81 Dependence on supplemental oxygen; Z79.82 Long term (current) use of aspirin; Z79.890 Hormone replacement therapy; Z79.899 Other long term (current) drug therapy
CPT/HCPCS: 36415; 71275; 80048; 80053; 80202; 83605; 84484; 85025; 87040; 87449; 87635; 93005; 94640; 97161; 97166; 97530; 97802; 99251; 99285; J7030; J7040; J7050; Q9967; U0005; A4216; G0463; U0003

== ENCOUNTER → 2021-09-12 08:48 | Outpatient (CLI) | payer MEDICARE, OTHER, SELFPAY ==
[2021-09-12 09:21] LABS: D-Dimer Quantitative (DVT/PE) 2.08 FEU/ug/m (0.27-0.49)
[2021-09-12 09:38] LABS: Erythrocyte Sedimentation Rate 37 mm/hr (0-20)
[2021-09-12 09:41] LABS: Absolute Lymphocyte Count 0.63 X10^3/uL (0.83-4.51); Absolute Neutrophil Count 10.3 X10^3/uL (2.0-7.7); Basophil# 0.04 X10^3/uL; Basophil% 0.3 % (0-1); Eosinophil# 0.43 X10^3/uL; Eosinophils% 3.3 % (0-5); Hematocrit 40.8 % (40-54); Hemoglobin 13.2 g/dL (13.0-16.5); Lymphocyte # 0.63 X10^3/ul (0.83-4.51); Lymphocyte % 4.9 % (19-41); Mean Corp Hgb Conc 32.4 g/dL (32-36); Mean Corpuscular Hgb 28.6 pg (27.0-32.0); Mean Corpuscular Volume 88.5 fL (80-94); Mean Platelet Vol. 9.8 fl (6.2-12.0); Monocyte# 1.48 X10^3/uL; Monocyte% 11.5 % (0-10); NRBC Flagged by Analyzer 0 % (0-5); Neutrophil # 10.25 X10^3/uL (2.7-7.7); Neutrophil % 79.5 % (47-70); Platelet Count 513 K/mm3 (150-450); RBC Distribution Width CV 13.2 % (11.6-14.6); RBC Distribution Width SD 42.9 fl (35.1-43.9); Red Blood Count 4.61 M/mm3 (4.6-6.2); White Blood Count 12.9 K/mm3 (4.4-11.0)
[2021-09-12 10:00] LABS: Rheumatoid Factor < 10.0 IU/mL (<15)
[2021-09-13 12:50] LABS: ANTINUCLEAR ANTIBODIES DIRECT Negative (Negative)
[2021-09-15 17:07] LABS: Aspirgillus flavus Negative (Neg:<1:1); Aspirgillus fumigatus Negative (Neg:<1:1); Aspirgillus niger Negative (Neg:<1:1)
[2021-09-16 10:49] LABS: CCP IgG Antibodies 5 units (0-19); Cytoplasmic Ab (C-ANCA) <1:20 titer (Neg:<1:20); Perinuclear Ab (P-ANCA) <1:20 titer (Neg:<1:20)
== END ==
PROVIDERS: PCP Internal Medicine; Referring Provider Internal Medicine Critical Care Medicine; Visit Provider Internal Medicine Critical Care Medicine
DX: J96.01 Acute respiratory failure with hypoxia (principal); J18.9 Pneumonia, unspecified organism
CPT/HCPCS: 36415; 85025; 85379; 85652; 86038; 86140; 86200; 86225; 86235; 86256; 86431; 86606

== ENCOUNTER → 2021-09-12 12:58 | Outpatient (CLI) | payer MEDICARE, OTHER, SELFPAY ==
--- NOTE | 2021-09-12 12:59 | CT_ITS ---
STUDY: CTA CHEST REASON FOR EXAM: Male, 70 years old. Elevated D dimer RADIATION DOSAGE (If Supplied By Facility): CTDIvol = ( 9.82 ) mGy, DLP = ( 415.98 ) mGycm TECHNIQUE: The examination was performed with the intravenous administration of IV 100mL Isovue-370. Post-processing of the angiographic images was performed, with multiplanar reformation and 3D reconstruction. Individualized dose optimization techniques were used for this CT. COMPARISON: Comparison is made with prior study dated 08/19/2021. FINDINGS: Normal enhancement of the main pulmonary artery and right and left pulmonary arteries. Normal enhancement of the bilateral peripheral pulmonary arteries. There is no demonstrated pulmonary embolism. Normal thoracic aorta and visualized great vessels. There is no demonstrated aortic dissection. Normal heart and pericardium. Normal mediastinum. Normal hilar regions. Normal visualized trachea and bronchi. The lungs are well expanded. Persistent infiltrates in the right upper lobe although there has been improved aeration as compared to prior study. Persistent consolidation in the right lower lobe although there has been improvement. Residual right pleural effusion. Since prior study, there has been progressive infiltrate in the left lower lobe as well as in the posterior aspect of the left upper lobe. This abuts the left major fissure. Normal pleura. Normal chest wall structures. There are degenerative changes of thoracic spine. Normal visualized upper abdomen. CT/CTA Chest W/WO Contrast IMPRESSION: No evidence of bone embolism. Improved aeration of the right upper and right lower lobe infiltrate with progressive infiltration in the posterior aspect of the left upper lobe as well as the left lower Electronically Signed: Andriy Hernandez MD at 14:08 EST , Service support ,
== END ==
PROVIDERS: PCP Internal Medicine; Referring Provider Internal Medicine Critical Care Medicine; Visit Provider Internal Medicine Critical Care Medicine
DX: J96.01 Acute respiratory failure with hypoxia (principal); J18.9 Pneumonia, unspecified organism
CPT/HCPCS: 36415; 71275; 85025; 85379; 85652; 86038; 86140; 86200; 86225; 86235; 86256; 86431; 86606; Q9967; A4216

== ENCOUNTER 2021-09-19 11:53 | Day surgery (SDC) | payer MEDICARE, OTHER, SELFPAY ==
--- NOTE | 2021-09-17 12:31 | HP.PCM_ITS ---
HPI - General HPI Narrative The patient is a 70-year-old male who initially presented to the pulmonary medicine clinic on September 12 for the evaluation of pneumonia. The patient was recently admitted to the hospital from August 19- with respiratory failure due to pneumonia. The patient was maintained on IV antimicrobials. Infectious work-up was unrevealing. The patient was discharged home ultimately on supplemental oxygen. Prior to this, in July, the patient was admitted to the hospital overnight under similar circumstances and discharged home on Levaquin. He has now been treated with multiple courses of antibiotics without any significant symptom improvement. During his most recent hospital stay, the patient received 5 days of broad-spectrum vancomycin and Zosyn and was discharged home on 3 additional days of Levaquin. He has not noted any significant improvement in his exertional shortness of breath. Prior to his illness in July, the patient was a very active individual and since that time has been experiencing more fatigue and dyspnea. He has not had any recent medication changes. He denies any known personal or family history of any autoimmune diseases. The patient was never previously on supplemental oxygen. He denies any significant cough, chest tightness or wheezing. The patient has lost approximately 13 pounds since July. Typically, he and his spend time in [place] from mid August until January. However, they have postponed their travels, given the patient's current clinical state. The patient was previously employed working for a [employer] company but spent all of his time within the confines of an office. He is a lifelong non-smoker. He does report limited secondhand smoke exposure. He did not grow up in a smoking household. He does not currently have any pets within his home environment. The patient is currently utilizing 4 L/min of oxygen with exertion and 2 L/min at rest. Repeat CTA chest completed on September 12 demonstrated no evidence for PE. However, there was persistent multifocal infiltrates bilaterally. Autoimmune work-up was negative. Aspergillus antibodies were negative. Given the unresolving nature of the patient's pulmonary infiltrates, the idea of proceeding with bronchoscopy with BAL was discussed with the patient. Risks and benefits of proposed procedure were discussed. The patient was in agreement to proceed. PENDING SALE TO [facility] Medical History (Updated 09/12/21 @ 08:[address] Darius Mosqueda, ) Acute respiratory failure with hypoxia HLD (hyperlipidemia) HTN (hypertension) Hypoxia Pleural effusion, right Pneumonia Home Medications atenolol 25 mg PO DAILY 07/31/21 [History Last Taken Unknown] lisinopril 10 mg PO DAILY 07/31/21 [History Last Taken Unknown] tamsulosin 0.4 mg PO DAILY 07/31/21 [History Last Taken Unknown] aspirin 81 mg PO DAILY 08/01/21 [History Last Taken Unknown] sildenafil 100 mg PO PRN PRN 08/19/21 [History Last Taken Unknown] albuterol sulfate 90 mcg/actuation aerosol inhaler 2 puff INHALATION Q6H PRN 09/12/21 [History Last Taken Unknown] cetirizine 10 mg capsule 10 mg PO DAILY PRN 09/12/21 [History Last Taken Unknown] fluticasone propionate 50 mcg/actuation nasal spray,suspension 1 spray INTRANASAL DAILY 09/12/21 [History Last Taken Unknown] Allergy/AdvReac Type Severity Reaction Status Date / Time No Known Allergies Allergy Verified 09/12/21 07:34 Family History Other Dementia Surgical History History of kidney surgery Social History Smoking Status: Never smoker substance use type: does not use ROS ROS Narrative As per HPI Physical Exam Const no apparent distress General Appearance: cooperative HEENT normocephalic, head/scalp atraumatic and EAC's normal Eyes PERRL and EOMs intact bilaterally Neck supple General: trachea midline Resp Auscultation: rales and diminished lung sounds Cardio regular rate and regular rhythm GI normal to inspection, nondistended, normoactive bowel sounds Extremity no clubbing, cyanosis or edema Skin no rashes or lesions noted Neuro CN's II-XII intact bilaterally and no focal motor deficits Psych affect normal Appearance: appropriate Assessment & Plan Assessment/Plan (1) Acute respiratory failure with hypoxia: PLAN: The presented initially for evaluation of shortness of breath and hypoxemia after having been admitted to the hospital on 2 occasions since July and treated with antimicrobials. He has not noted any symptom improvement. His most recent CTA chest completed on September 12 demonstrated continued bilateral multifocal infiltrates. The patient, to date, has been treated with multiple rounds of antimicrobials. If the findings noted on chest imaging are related to a prototypical community-acquired pneumonia, the patient should be improving symptomatically with radiographic clearing of the infiltrates. Given the persistent nature of his infiltrates and lack of response to antimicrobial therapy, we will proceed with bronchoscopy with BAL. Risks and benefits were reviewed with the patient regarding the procedure. He is in agreement to proceed.
[2021-09-19] VITALS (10 sets, daily range): BP systolic 103–125; BP diastolic 68–87; PULSE 72–81; RESP 16–20; TEMP 36.3–36.5; O2SAT 87–95; BMI 24.7
--- NOTE | 2021-09-19 | FLU_PTH ---
PATIENT: JHOANA SPARKS LOC: EN U#:[id number] AGE/SX: 70/M ROOM: RE09/19/[address]: Dr. Darius Mosqueda DO : 1950 BED: DIS: 09/19/2021 SPEC #: [id number] RECD: 09/19/21 13:46 STATUS: OVIDIO REZohra #: [id number] KEYON: 09/19/21 00:[address]: Darius Mosqueda DEPT: CYTOLOGY RECD BY: Quincy Le ENTERED: 09/20/21 09:37 SP TYPE: Fluid OTHR DR: Dr. Teetee Mcdowell MD Tissues: A - Lung, NOS B - Bronchus of right middle lobe Procedures: PC (control) Special Stain Group II Special Stain Group I Surgery Specimen Level IV AFB Stain (control) GMS Stain (control) Cytospin Fluid HEADER OPERATION: Bronchoscopy with BAL PRE-OP DIAGNOSIS: Abnormal chest CT TISSUE SUBMITTED: A ? BAL lingual, B ? BAL RML DIAGNOSIS CYTOLOGY A. Lingua, bronchioalveolar lavage (cytospin and cell block): Rare budding yeast forms and fungal hyphae of uncertain type. Negative for malignant cells. See comment. B. Right middle lobe of lung, bronchioalveolar lavage (cytospin and cell block): Negative for malignant cells. Negative for fungal organisms. Negative for pneumocystis. Negative for acid fast bacilli. See comment. AM:volodymyr 09/23/2021 COMMENT A. AFB stain with matched control is negative. GMS stain with matched control is negative in the cell block. PC stain with matched control is negative in the cell block. Fungal organisms identified only in two of four smears. Oral contaminant cannot be ruled out. Clinical correlation is suggested. B. AFB, GMS and PC stains with matched controls were used in the evaluation of this case. CYTOLOGY STUDY Slides are reviewed. CYTOLOGY GROSS A - Received is 10 ml of cloudy colorless fluid labeled with the patient's name and and designated per the requisition as BAL lingula. Submitted for cytology preparation including cell block. B - Received is 10 ml of cloudy colorless fluid labeled with the patient's name and and designated per the requisition as BAL RML. Submitted for cytology preparation including cell block. / volodymyr 09/20/2021 TC:5 CPT: 22553 x2, 57993 x2, 07086 x6
[2021-09-19] MEDS: Lactated Ringers 1,000 ML 15 ML IV (12:10)
[2021-09-19] MEDS: Lidocaine 2% Jelly 1 APPLIC Tube (13:15)
[2021-09-19] MEDS: Lidocaine 2% (5ml sdv) 5 ML VIAL.MPF (13:15)
--- NOTE | 2021-09-19 13:46 | OP.BRONCH_ITS ---
Patient Name: Omid Poe Procedure Date: 09/19/2021 12:50 PM Date of : 1950 Age: 70 Procedure: Bronchoscopy Indications: Abnormal CT scan of chest Providers: Darius Mosqueda MD Medicines: See the Anesthesia note for documentation of the administered medications Complications: No immediate complications Procedure: Pre-Anesthesia Assessment: - A History and Physical has been performed. Patient meds and allergies have been reviewed. The risks and benefits of the procedure and the sedation options and risks were discussed with the patient. All questions were answered and informed consent was obtained. Patient identification and proposed procedure were verified prior to the procedure by the physician and the nurse in the procedure room. Mental Status Examination: alert and oriented. Airway Examination: normal oropharyngeal airway. Respiratory Examination: poor air movement. CV Examination: normal. ASA Grade Assessment: II - A patient with mild systemic disease. After reviewing the risks and benefits, the patient was deemed in satisfactory condition to undergo the procedure. The anesthesia plan was to use monitored anesthesia care (MAC). Immediately prior to administration of medications, the patient was re-assessed for adequacy to receive sedatives. The heart rate, respiratory rate, oxygen saturations, blood pressure, adequacy of pulmonary ventilation, and response to care were monitored throughout the procedure. The physical status of the patient was re-assessed after the procedure. After I obtained informed consent, the scope was passed under direct vision. Throughout the procedure, the patient's blood pressure, pulse, and oxygen saturations were monitored continuously. The bronchoscope was introduced through the mouth and advanced to the tracheobronchial tree. The procedure was accomplished without difficulty. The patient tolerated the procedure well. Findings: The oropharynx appears normal. The larynx appears normal. The vocal cords appear normal. The subglottic space is normal. The trachea is of normal caliber. The shanique is sharp. The tracheobronchial tree was examined to at least the first subsegmental level. Bronchial mucosa and anatomy are normal; there are no endobronchial lesions, and no secretions. Bronchoalveolar lavage was performed in the lingula of the lung and sent for cell count, bacterial culture, viral smears & culture, and fungal & AFB analysis and cytology. 40 mL of fluid were instilled. 15 mL were returned. The return was cloudy. There were no mucoid plugs in the return fluid. Bronchoalveolar lavage was performed in the right middle lobe of the lung and sent for cell count, bacterial culture, viral smears & culture, and fungal & AFB analysis and cytology. 40 mL of fluid were instilled. 15 mL were returned. The return was cloudy. There were no mucoid plugs in the return fluid. Impression: - Abnormal CT scan of chest - The airway examination was normal. - Bronchoalveolar lavage was performed. Recommendation: - Await BAL, culture and cytology results. Procedure Code(s): --- Professional --- 03822, Bronchoscopy, rigid or flexible, including fluoroscopic guidance, when performed; with bronchial alveolar lavage 26574, Bronchoscopy, rigid or flexible, including fluoroscopic guidance, when performed; with bronchial alveolar lavage Diagnosis Code(s): --- Professional --- R93.8, Abnormal findings on diagnostic imaging of other specified body structures CPT copyright 2017 [employer]. All rights reserved. The codes documented in this report are preliminary and upon dust collector ore crushing review may be revised to meet current compliance requirements. DO Darius Young MD 09/19/2021 1:45:56 PM This report has been signed electronically. Number of Addenda: 0 Note Initiated On: 09/19/2021 12:50 PM
[2021-09-19 14:12] LABS: Acid Fast Stain SEE PATHOLOGY REPORT; Cytology, Body Fluid / CSF SEE PATHOLOGY REPORT
[2021-09-19 14:15] LABS: Cytology, Body Fluid / CSF SEE PATHOLOGY REPORT
[2021-09-19 17:07] LABS: Lymphocytes 12 %; Monocytes 1 %; Neutrophil (Segs) 25 %; Other Cell Type/BF 62 %
[2021-09-19 17:09] LABS: Color/Body Fluid COLORLESS; Source- Body Fluid BRONCHIAL LAVAGE
[2021-09-19 17:10] LABS: Appearance/Body Fluid CLEAR; Red Cell Count/Body Fluid 13 /mm3; White Blood Count/Body Fluid 29 /mm3
[2021-09-19 17:11] LABS: Body Fluid QC Type(s) BF3Q
[2021-09-19 17:15] LABS: Appearance/Body Fluid SL CLDY; Color/Body Fluid COLORLESS; Lymphocytes 14 %; Neutrophil (Segs) 38 %; Other Cell Type/BF 48 %; Source- Body Fluid BRONCHIAL LAVAGE
[2021-09-19 17:16] LABS: Body Fluid QC Type(s) BF3Q; Red Cell Count/Body Fluid 77 /mm3; White Blood Count/Body Fluid 48 /mm3
[2021-09-23 10:16] LABS: Pathologist Comment/Body Fluid Reviewed
== END 2021-09-19 15:29 ==
LOC: EN 11:54 → AC 11:57
PROVIDERS: PCP Internal Medicine; Referring Provider Internal Medicine; Visit Provider Internal Medicine Critical Care Medicine
PROC: 0BJ08ZZ Inspection of Tracheobronchial Tree, Via Natural or Artificial Opening Endoscopic (ICD-10-PCS; CPT 31622; principal; 2021-09-19 12:45)
DX: R94.2 Abnormal results of pulmonary function studies (principal); J96.01 Acute respiratory failure with hypoxia; J90 Pleural effusion, not elsewhere classified; Z77.22 Contact with and (suspected) exposure to environmental tobacco smoke (acute) (chronic); I10 Essential (primary) hypertension; E78.5 Hyperlipidemia, unspecified; Z79.82 Long term (current) use of aspirin; Z79.899 Other long term (current) drug therapy; Z87.01 Personal history of pneumonia (recurrent)
CPT/HCPCS: 31624; 87015; 87070; 87116; 87205; 87206; 87252; 88108; 88305; 88313; 89050; J7120; J2405

== ENCOUNTER 2021-09-21 08:36 | Inpatient (IN) | payer MEDICARE, OTHER, SELFPAY ==
[2021-09-21] VITALS (15 sets, daily range): BP systolic 132–166; BP diastolic 70–91; PULSE 60–87; RESP 16–29; TEMP 36.4–37.2; O2SAT 93–97; BMI 27.0; BMI 24.8
--- NOTE | 2021-09-21 08:40 | EKG12_ITS ---
Test Reason : SOB Blood Pressure : / mmHG Vent. Rate : 074 BPM Atrial Rate : 074 BPM P-R Int : 156 ms QRS Dur : 078 ms QT Int : 388 ms P-R-T Axes : 026 018 027 degrees QTc Int : 430 ms Normal sinus rhythm Normal ECG Confirmed by DONNIE STALLWORTH, BOZENA ([id number]), business editor MYRON LOPEZ ([id number]) on 09/23/2021 9:15:09 AM Referred By: MR Confirmed By:BOZENA FIELDS MD
[2021-09-21 09:20] LABS: Absolute Lymphocyte Count 0.92 X10^3/uL (0.83-4.51); Absolute Neutrophil Count 12.9 X10^3/uL (2.0-7.7); Basophil# 0.07 X10^3/uL; Basophil% 0.4 % (0-1); Eosinophils% 1.9 % (0-5); Hematocrit 37.1 % (40-54); Hemoglobin 12.4 g/dL (13.0-16.5); Lymphocyte # 0.92 X10^3/ul (0.83-4.51); Lymphocyte % 5.8 % (19-41); Mean Corp Hgb Conc 33.4 g/dL (32-36); Mean Corpuscular Hgb 28.9 pg (27.0-32.0); Mean Corpuscular Volume 86.5 fL (80-94); Mean Platelet Vol. 8.8 fl (6.2-12.0); Monocyte# 1.49 X10^3/uL; Monocyte% 9.4 % (0-10); NRBC Flagged by Analyzer 0 % (0-5); Neutrophil % 81.2 % (47-70); Platelet Count 634 K/mm3 (150-450); RBC Distribution Width CV 13.4 % (11.6-14.6); RBC Distribution Width SD 41.8 fl (35.1-43.9); Red Blood Count 4.29 M/mm3 (4.6-6.2); White Blood Count 15.9 K/mm3 (4.4-11.0)
--- NOTE | 2021-09-21 09:25 | RAD_ITS ---
STUDY: X-RAY CHEST REASON FOR EXAM: Male, 70 years old. SOB TECHNIQUE: Single AP portable view of the chest. COMPARISON: 07/31/2021 FINDINGS: Alveolar opacities in both lungs consistent with bilateral pneumonia. There is no demonstrated pleural abnormality. There is moderate cardiac enlargement. Normal mediastinum and kulwant. Normal visualized pulmonary arteries. There is atherosclerotic tortuosity of the aortic arch and descending thoracic aorta. Normal visualized thoracic spine. Normal visualized ribs, clavicles, and shoulders. There is no demonstrated abnormality of the visualized soft tissue structures of the upper abdomen. RAD/Chest 1 View (Portable) IMPRESSION: Bilateral pneumonia. Electronically Signed: Fernando Haines MD at 9:44 EST Tel , Service support ,
--- NOTE | 2021-09-21 09:27 | EDS_ITS ---
HPI History of Present Illness Chief Complaint: Shortness of Breath Narrative Narrative: Patient presenting for evaluation secondary to shortness of breath. Patient is a reasonably healthy 70-year-old man with a history of some hypertension over the course of the last 7 weeks had a onset of shortness of breath and a severe refractory pneumonia that has elicited hospital admissions and bronchoscopy recently. This is been refractory to treatment. Patient states that he has no history of smoking no underlying history of lung disease, but secondary to this pneumonia now he is on chronic oxygen supplementation at 2 L at rest and 4 L with exertion. Patient states that he had worsening of his shortness of breath today. He reports that his pulse ox is with drop into the 60s and 70s with just changing position and required increase of his oxygen supplementation up to 6 L. Patient denies any new fevers or productive cough. Denies any chest pain. Review of systems otherwise negative. [facility] Medical History Acute respiratory failure with hypoxia History of steroid therapy HLD (hyperlipidemia) Hypertension Hypoxia Non-smoker On home oxygen therapy Pleural effusion, right Pneumonia Prostate disease Shortness of breath on exertion Home Medications atenolol 25 mg PO DAILY 07/31/21 [History Last Taken 09/19/21] lisinopril 10 mg PO DAILY 07/31/21 [History Last Taken 09/19/21] tamsulosin 0.4 mg PO DAILY 07/31/21 [History Last Taken Unknown] aspirin 81 mg PO DAILY 08/01/21 [History Last Taken Unknown] sildenafil 100 mg PO PRN PRN 08/19/21 [History Last Taken Unknown] albuterol sulfate 90 mcg/actuation aerosol inhaler 2 puff INHALATION Q6H PRN 09/12/21 [History Last Taken Unknown] cetirizine 10 mg capsule 10 mg PO DAILY PRN 09/12/21 [History Last Taken Unknown] fluticasone propionate 50 mcg/actuation nasal spray,suspension 1 spray INTRANASAL DAILY 09/12/21 [History Last Taken Unknown] lactobacillus combination no.4 [Probiotic] 3,000 mmu cells PO DAILY 09/17/21 [History Last Taken Unknown] multivitamin 1 cap PO DAILY 09/17/21 [History Last Taken Unknown] Allergy/AdvReac Type Severity Reaction Status Date / Time No Known Allergies Allergy Verified 09/21/21 08:36 Family History Other Dementia Surgical History History of kidney surgery Hx of foot surgery Hx of left cataract extraction Hx of right cataract extraction Social History Smoking Status: Never smoker substance use type: does not use ROS ROS ED Constitutional Constitutional ED: Denies chills or fever(s) ENT ENT ED: Denies rhinorrhea Cardiovascular Cardiovascular: Denies chest pain Respiratory/Chest Respiratory/Chest: Reports cough and dyspnea Gastrointestinal Gastrointestinal: Denies abdominal pain, diarrhea, nausea or vomiting Genitourinary Genitourinary ED: Denies dysuria or hematuria Musculoskeletal Musculoskeletal: Denies back pain Integumentary Denies rash Neurologic Neurologic: Denies paresthesias or weakness Psychiatric Psychiatric: Denies depression Endocrine Endocrinology: Denies fatigue Allergic/Immunologic Allergic/Immunologic ED: Denies urticaria EXAM Physical Exam Const Vital Signs: 09/21/21 08:37 09/21/21 08:41 09/21/21 09:16 Temperature 98.5 F 98.5 F Temperature Source Oral Oral Pulse Rate 79 72 Respiratory Rate 24 H 20 H Respiratory Effort Short of Breath Labored Respiratory Pattern Tachypnea Blood Pressure 166/90 H 166/90 H Blood Pressure Mean 115 115 Pulse Ox 95 94 Oxygen Delivery Method Nasal Cannula Nasal Cannula Nasal Cannula Oxygen Flow Rate (L/min) 5 5 5 09/21/21 10:00 09/21/21 10:16 Temperature 98.5 F Temperature Source Oral Pulse Rate 62 71 Respiratory Rate 16 29 H Respiratory Effort Respiratory Pattern Blood Pressure 135/77 H 132/70 H Blood Pressure Mean 96 90 Pulse Ox 94 94 Oxygen Delivery Method Room Air Oxygen Flow Rate (L/min) Positive well nourished and well developed Constitutional Narrative: Mild to moderate respiratory discomfort General Appearance ED: well developed HEENT Reports moist mucous membranes Negative for trauma or tenderness Eyes EOMs intact bilaterally Neck no lymphadenopathy, supple and no JVD Chest Wall inspection of chest normal Resp clear to auscultation bilaterally Resp Narrative: Tachypneic, no signs of abnormal lung sounds no retractions or accessory muscle use. Cardio regular rate, regular rhythm, no murmurs and peripheral pulses 2+ throughout GI normal to inspection, nondistended, normoactive bowel sounds, non-tender and no masses Palpation: soft Back/Spine normal to inspection Extremity normal to inspection General Extremety ED: Negative for tenderness Neuro oriented x3 and no sensory deficits noted Sensorium / Orientation: alert Motor Exam: strength 5/5 throughout Psych mental status grossly normal Skin no rashes or lesions noted MDM MDM MDM Narrative Medical decision making narrative: Patient presenting for evaluation secondary to worsening shortness of breath in the setting of a prolonged onset of a indeterminate pneumonia. Patient was requiring 6 L nasal cannula to keep his saturations above 90%. Work-up was obtained. CBC demonstrates a leukocytosis at 15.9, chemistry was grossly unremarkable lactic acid was negative pro calcitonin was within normal limits troponin was noted to be negative EKG demonstrated no ischemic signs. Chest x-ray by my personal review as well as radiology demonstrates bilateral infiltrates. I was in contact early with the patient's diversity manager Dr. Mosqueda, and after review of the patient's work-up in case decision was made to start the patient on a trial of steroids and admitted to the hospital. The current thought is that the patient likely has a inflammatory rather than infectious pneumonia. His bronchoscopy results are currently still pending. Patient was given 40 mg of Solu-Medrol. He will be admitted for further treatment. Lab Data Labs: Laboratory Results - last 24 hr 09/21/21 09/21/21 09/21/21 09:10 09:10 09:10 WBC RBC Hgb Hct MCV MCH MCHC RDW Std Deviation RDW Coeff of Juliet Plt Count MPV Immature Gran % (Auto) Neut % (Auto) Lymph % (Auto) [place] % (Auto) Eos % (Auto) Baso % (Auto) Absolute Neuts (auto) Absolute Lymphs (auto) Nucleated RBC % Sodium 135 L Potassium 3.7 Chloride 101 Carbon Dioxide 27.0 Anion Gap 7 BUN 19 H Creatinine 0.72 Estim Creat Clear Calc 66.77 Est GFR (MDRD) Af Amer 137 Est GFR (MDRD) Non-Af 113 BUN/Creatinine Ratio 26.2 H Glucose 107 H Lactic Acid 0.8 Calcium 8.6 Troponin I High Sens 6 B-Natriuretic Peptide Procalcitonin 0.08 09/21/21 09/21/21 09:10 09:10 WBC 15.9 H RBC 4.29 L Hgb 12.4 L Hct 37.1 L MCV 86.5 MCH 28.9 MCHC 33.4 RDW Std Deviation 41.8 RDW Coeff of Juliet 13.4 Plt Count 634 H MPV 8.8 Immature Gran % (Auto) 1.300 H Neut % (Auto) 81.2 H Lymph % (Auto) 5.8 L [place] % (Auto) 9.4 Eos % (Auto) 1.9 Baso % (Auto) 0.4 Absolute Neuts (auto) 12.9 H Absolute Lymphs (auto) 0.92 Nucleated RBC % 0 Sodium Potassium Chloride Carbon Dioxide Anion Gap BUN Creatinine Estim Creat Clear Calc Est GFR (MDRD) Af Amer Est GFR (MDRD) Non-Af BUN/Creatinine Ratio Glucose Lactic Acid Calcium Troponin I High Sens B-Natriuretic Peptide 48.8 Procalcitonin Radiography Diagnostic Testing: Clinical Impression(s) from Imaging Studies Chest X-Ray 09/21/21 09:25 IMPRESSION: Bilateral pneumonia. Electronically Signed: Fernando Haines MD at 9:44 EST Tel , Service support , EKG Initial EKG: Attestation: I personally reviewed and interpreted this EKG as follows: (Sinus rhythm at [address] segments normal T waves normal TN and QTc intervals no evidence of acute ischemia or arrhythmia) Discharge Plan Triage Chief Complaint: Shortness of Breath ED Provider: Duane Henry Dx/Rx/DC Orders Clinical Impression: Cryptogenic organizing pneumonia, Hypoxia Prescriptions: No Action fluticasone propionate 50 mcg/actuation spray,suspension 1 spray intranasal DAILY RF: 0 Zyrtec 10 mg capsule 10 mg PO DAILY PRN (Reason: ALLERGIES) RF: 0 albuterol sulfate 90 mcg/actuation HFA aerosol inhaler 2 puff inhalation Q6H PRN (Reason: SOB) RF: 0 atenolol 25 mg Tablet 25 mg PO DAILY RF: 0 tamsulosin 0.4 mg Capsule 0.4 mg PO DAILY RF: 0 lisinopril 10 mg Tablet 10 mg PO DAILY RF: 0 aspirin 81 mg Tablet,Delayed Release (Dr/Ec) 81 mg PO DAILY RF: 0 sildenafil 100 mg tablet 100 mg PO PRN PRN (Reason: Erectile Dysfunction) RF: 0 multivitamin Capsule 1 cap PO DAILY RF: 0 Probiotic 3 billion cell Capsule 3,000 mmu cells PO DAILY RF: 0 Primary Care Provider: Teetee Mcdowell Referrals: Teetee Mcdowell MD [Primary Care Provider] - Disposition Disposition: Acute Care Hospital [facility]
[2021-09-21 09:41] LABS: Lactic Acid 0.8 mmol/L (0.4-1.9)
[2021-09-21 09:45] LABS: Anion Gap 7 (5-15); BUN 19 mg/dL (7-18); BUN/Creat Ratio 26.2 RATIO (10-20); Calcium,Total 8.6 mg/dL (8.5-10.1); Chloride 101 mmol/L (98-107); Creatinine, Serum 0.72 mg/dL (0.70-1.30); EST Glomerular Filtration Rate 113 mL/min (>60); Est Glom Filt Rate - Afr Amer 137 mL/min (>60); Estimated Creatinine Clearance 66.77 ml/min; Glucose 107 mg/dL (74-106); Potassium 3.7 mmol/L (3.5-5.1); Sodium Level 135 mmol/L (136-145); Troponin-I HS 6 pg/mL (3.0-78.0)
[2021-09-21 09:46] LABS: Procalcitonin 0.08 ng/mL (0.00-0.09)
[2021-09-21 09:48] LABS: BNP,B-Type NATRIURETIC PEPTIDE 48.8 pg/mL (0-100)
--- NOTE | 2021-09-21 10:36 | HP.PCM_ITS ---
HPI - General General Date of Admission: 09/21/21 HPI Narrative JHOANA SPARKS, is a 70 M with an extensive PMH as outlined who presents with a complaint of shortness of breath. Patient has been treated for pneumonia refractory to treatment over the last month and was discharged home on oxygen ~ 1 month ago. He had a bronch 2 days ago, which labs are still pending. He said his oxygen sats went down into the 60s and 70s with just changing position; his oxygen requirements went up to 6L, from 2L. He denies any fever or chills, and denies any cough. REview of systems is otherwise negative. CXR showed bilateral pneumonia. EKG showed no acute ST changes and CBC showed wbc of 15.9, with Hb of 12.4 and plaelets of 634; he has chronically elevated platelets. BMP was also unremarkable. ED discussed patient with his engine mechanic recommended that patient be started on IV Solu-Medrol 40 mg twice daily due to concerns about possible cryptogenic pneumonia. [facility] Medical History Acute respiratory failure with hypoxia History of steroid therapy HLD (hyperlipidemia) Hypertension Hypoxia Non-smoker On home oxygen therapy Pleural effusion, right Pneumonia Prostate disease Shortness of breath on exertion Home Medications atenolol 25 mg PO DAILY 07/31/21 [History Last Taken 09/21/21] lisinopril 10 mg PO DAILY 07/31/21 [History Last Taken 09/21/21] tamsulosin 0.4 mg PO DAILY 07/31/21 [History Last Taken 09/20/21] aspirin 81 mg PO DAILY 08/01/21 [History Last Taken 09/21/21] sildenafil 100 mg PO PRN PRN 08/19/21 [History Last Taken Unknown] cetirizine 10 mg capsule 10 mg PO DAILY PRN 09/12/21 [History Last Taken Unknown] fluticasone propionate 50 mcg/actuation nasal spray,suspension 1 spray INTRANASAL DAILY PRN 09/12/21 [History Last Taken Unknown] lactobacillus combination no.4 [Probiotic] 3,000 mmu cells PO DAILY 09/17/21 [History Last Taken 09/20/21] multivitamin 1 cap PO DAILY 09/17/21 [History Last Taken 09/20/21] Allergy/AdvReac Type Severity Reaction Status Date / Time No Known Allergies Allergy Verified 09/21/21 08:36 Family History Other Dementia Surgical History History of kidney surgery Hx of foot surgery Hx of left cataract extraction Hx of right cataract extraction Social History (Updated 09/21/21 @ 12:39 by Deb Linares) household members: spouse housing: house pets and animals: No history of recent travel: No Smoking Status: Never smoker substance use type: does not use what type of physical activity do you participate in: walking and bicycling ROS Review of Systems ROS Unobtainable: due to encephalopathy Constitutional Constitutional: Denies anorexia, chills, fatigue, fever(s), malaise or weakness Eyes Eyes: Denies change in vision ENT HEENT: Denies dysphagia, headache(s), hearing loss, nasal congestion, nasal discharge or sore throat Cardiovascular Cardiovascular: Denies chest pain, edema or orthopnea Respiratory/Chest Respiratory/Chest: Reports shortness of breath at rest, shortness of breath with exertion and wheezing; Denies cough Gastrointestinal Gastrointestinal: Denies abdominal pain, constipation, diarrhea, nausea or vomiting Genitourinary Genitourinary: Denies dysuria Musculoskeletal Musculoskeletal: Denies back pain, extremity pain, joint pain or joint swelling Neurologic Neurologic: Reports numbness; Denies confusion, dizziness, headache(s) or seizures Psychiatric Psychiatric: Denies anxiety or depression Endocrine Endocrinology: Denies change in body appearance Hematologic/Lymphatic Hematologic/Lymphatic: Denies anemia Vital Signs Vital Signs Vital Signs: 09/21/21 08:37 09/21/21 08:41 09/21/21 09:16 Temperature 98.5 F 98.5 F Temperature Source Oral Oral Pulse Rate 79 72 Respiratory Rate 24 H 20 H Respiratory Effort Short of Breath Labored Respiratory Pattern Tachypnea Blood Pressure 166/90 H 166/90 H Blood Pressure Mean 115 115 Pulse Ox 95 94 Oxygen Delivery Method Nasal Cannula Nasal Cannula Nasal Cannula Oxygen Flow Rate (L/min) 5 5 5 09/21/21 10:00 09/21/21 10:16 Temperature 98.5 F Temperature Source Oral Pulse Rate 62 71 Respiratory Rate 16 29 H Respiratory Effort Respiratory Pattern Blood Pressure 135/77 H 132/70 H Blood Pressure Mean 96 90 Pulse Ox 94 94 Oxygen Delivery Method Room Air Oxygen Flow Rate (L/min) Weight Weight: 182 lb 15.739 oz Body Mass Index (BMI) 27.0 Physical Exam Const alert, oriented x3 and no apparent distress General Appearance: cooperative HEENT normocephalic and head/scalp atraumatic Eyes PERRL and EOMs intact bilaterally Neck no lymphadenopathy, supple and no JVD Resp Resp Narrative: Tachypneic. Diminished breath sounds bibasilarly. No wheezes or crackles. On 6L of oxygen at time of review Cardio regular rate, regular rhythm, S1 normal heart sound, S2 normal heart sound and no murmurs GI normal to inspection, nondistended, normoactive bowel sounds, soft to palpation, non-tender and non-distended Palpation: no hepatosplenomegaly Extremity normal capillary refill and no clubbing, cyanosis or edema General Extremity: no tenderness to palpation of joints or extremities Skin no rashes or lesions noted General Skin Exam: turgor normal Neuro CN's II-XII intact bilaterally Psych affect normal Results Lab / Micro Data Result Diagrams: 09/22/21 05:52 09/22/21 05:52 Labs: Laboratory Results - last 24 hr 09/21/21 09:10: Sodium 135 L, Potassium 3.7, Chloride 101, Carbon Dioxide 27.0, Anion Gap 7, BUN 19 H, Creatinine 0.72, Estim Creat Clear Calc 66.77, Est GFR (MDRD) Af Amer 137, Est GFR (MDRD) Non-Af 113, BUN/Creatinine Ratio 26.2 H, Glucose 107 H, Calcium 8.6, Troponin I High Sens 6 09/21/21 09:10: Lactic Acid 0.8 09/21/21 09:10: Procalcitonin 0.08 09/21/21 09:10: B-Natriuretic Peptide 48.8 09/21/21 09:10: WBC 15.9 H, RBC 4.29 L, Hgb 12.4 L, Hct 37.1 L, MCV 86.5, MCH 28.9, MCHC 33.4, RDW Std Deviation 41.8, RDW Coeff of Juliet 13.4, Plt Count 634 H, MPV 8.8, Immature Gran % (Auto) 1.300 H, Neut % (Auto) 81.2 H, Lymph % (Auto) 5.8 L, [place] % (Auto) 9.4, Eos % (Auto) 1.9, Baso % (Auto) 0.4, Absolute Neuts (auto) 12.9 H, Absolute Lymphs (auto) 0.92, Nucleated RBC % 0 Micro: Microbiology 09/21/21 08:56 Mucosa - Nasopharyngeal Influenza Types A,B Direct FA (CATHY) - Final 09/21/21 08:46 Nasal Secretion SARS-CoV-2 Antigen (Rapid) - Final Radiology Impression Chest X-Ray 09/21/21 09:25 IMPRESSION: Bilateral pneumonia. Electronically Signed: Fernando Haines MD at 9:44 EST Tel , Service support , Assessment & Plan Assessment/Plan (1) Cryptogenic organizing pneumonia: (2) Respiratory failure, [id number]: PLAN: Acute on chronic hypoxic respiratory failure * Thought to be due to cryptogenic pneumonia. * Patient has had a course of pneumonia over the last few weeks refractory to treatment. He had a bronchoscopy 2 days ago results of which are still pending. * Titrate oxygen to maintain saturation above 90%. Breathing treatments of bronchodilators. * Per recommendation of engine mechanic, start on IV Solu-Medrol 40 mg twice daily * Consult pulmonology * Breathing treatments with bronchodilators. * #Thrombocytosis: chronic. Will monitor #Hypertension: On atenolol and lisinopril DVT prophylaxis: Lovenox CODE STATUS:full code * Patient and counseled extensively about different types of CODE STATUS including full code, DNR CCA and DNR CCA. Patient elects to be full code. * Total ptww-dx-kkcg time 16 minutes. Charges/Coding Visit Charges Inpatient E&M: 42584 Init Hosp L3 Procedures Hospitalists Procedures: 26393 Advncd Care Plan 30 Min
--- NOTE | 2021-09-21 13:08 | PCS.PANDOC ---
PANDEMIC DOCUMENTATION INITIATED: Date: 05/20/2021 Time: 190
[2021-09-21] MEDS: Ondansetron 4 MG/2 ML Vial IV (14:44)
[2021-09-21] MEDS: 0.9% Saline Lock 10 ML Syringe IV (14:44)
[2021-09-21] MEDS: Psyllium 1 PACKET PO (21:53)
[2021-09-22] VITALS (11 sets, daily range): BP systolic 134–151; BP diastolic 74–92; PULSE 65–94; RESP 17–20; TEMP 36.4–36.5; O2SAT 90–94
--- NOTE | 2021-09-22 05:47 | CON.PCM.CC_ITS ---
Assessment & Plan Assessment/Plan (1) Respiratory failure, [id number]: PLAN: RECOMMENDATIONS: 1. Wean supplemental oxygen to maintain saturations at or above 90%. 2. Continue IV steroids as ordered. 3. Await the remainder of the bronchoscopy culture work-up. 4. Encourage incentive spirometer use and mobilize patient as tolerated. IMPRESSIONS: 1. Acute on chronic hypoxemic respiratory failure The patient has a history of 2 recent hospitalizations since July, during which time, he was treated with antimicrobials for presumptive pneumonia. However, the patient never improved symptomatically. In fact, he has experienced worsening oxygenation status and symptoms. He presented to the outpatient clinic for evaluation. Repeat CT chest again demonstrated persistent infiltrates bilaterally. Autoimmune work-up was negative. Aspergillus antibodies were negative. The patient underwent bronchoscopy on September 19. Cell count was mixed in cellularity. Preliminary bacterial cultures were negative. The remainder of the infectious work-up is still pending. Nevertheless, in light of the patient's worsening oxygenation status and symptoms, the decision was made to place him on IV steroids, 1 mg/kg, to cover for a potential inflammatory condition such as organizing pneumonia. If the patient does not begin to improve symptomatically, he may eventually require a VATS biopsy for further clarification. 2. History of hypertension Continue outpatient medication regimen. This note was generated with [employer] dictation software. It may contain incorrect words, spelling, and punctuation that were not noted in checking the note before signing. HPI Consult Data Date of Consult: 09/22/21 HPI Narrative Reason for Consultation: Acute on chronic hypoxemic respiratory failure HPI Narrative: The patient is a 70-year-old male, with a history as outlined below, who presented to the emergency department on September 21 with worsening dyspnea and hypoxemia. The patient is known to me from the pulmonary medicine clinic. I initially met the patient on September 12 in the pulmonary medicine clinic after he was referred to me for the evaluation of unresolving pneumonia. The patient was recently admitted to the hospital from August 19- with respiratory failure due to pneumonia. The patient was maintained on IV ant imicrobials. Infectious work-up was unrevealing. The patient was discharged home ultimately on supplemental oxygen. Prior to this, in July, the patient was admitted to the hospital overnight under similar circumstances and discharged home on Levaquin. He has now been treated with multiple courses of antibiotics without any significant symptom improvement. During his most recent hospital stay, the patient received 5 days of broad-spectrum vancomycin and Zosyn and was discharged home on 3 additional days of Levaquin. Prior to his illness in July, the patient was a very active individual and since that time has been experiencing more fatigue and dyspnea. The patient has lost approxi mately 13 pounds since July. The patient was previously employed working for a [email or web address] but spent all of his time within the confines of an office. He is a lifelong non-smoker. CTA chest completed on September 12 demonstrated no evidence for PE. However, there was persistent multifocal infiltrates bilaterally. Autoimmune work-up was negative. Aspergillus antibodies were negative. Given the unresolving nature of the patient's infiltrates and continued symptoms, who was referred to undergo bronchoscopy with BAL, which was completed on September 19. The airway examination was unremarkable. 2 separate lavages were performed, one from the right middle lobe and the other from the lingula. Cell count from his BAL revealed mixed cellularity. Bacterial cultures have been unremarkable to date. However, viral, fungal and AFB smear/cultures are pending. [facility] Medical History Acute respiratory failure with hypoxia History of steroid therapy HLD (hyperlipidemia) Hypertension Hypoxia Non-smoker On home oxygen therapy Pleural effusion, right Pneumonia Prostate disease Shortness of breath on exertion Home Medications atenolol 25 mg PO DAILY 07/31/21 [History Last Taken 09/21/21] lisinopril 10 mg PO DAILY 07/31/21 [History Last Taken 09/21/21] tamsulosin 0.4 mg PO DAILY 07/31/21 [History Last Taken 09/20/21] aspirin 81 mg PO DAILY 08/01/21 [History Last Taken 09/21/21] sildenafil 100 mg PO PRN PRN 08/19/21 [History Last Taken Unknown] cetirizine 10 mg capsule 10 mg PO DAILY PRN 09/12/21 [History Last Taken Unknown ] fluticasone propionate 50 mcg/actuation nasal spray,suspension 1 spray INTRANASAL DAILY PRN 09/12/21 [History Last Taken Unknown] lactobacillus combination no.4 [Probiotic] 3,000 mmu cells PO DAILY 09/17/21 [History Last Taken 09/20/21] multivitamin 1 cap PO DAILY 09/17/21 [History Last Taken 09/20/21] Allergy/AdvReac Type Severity Reaction Status Date / Time No Known Allergies Allergy Verified 09/21/21 08:36 Family History Other Dementia Surgical History History of kidney surgery Hx of foot surgery Hx of left cataract extraction Hx of right cataract extraction Social History (Updated 09/21/21 @ 12:39 by Deb Linares) household members: spouse housing: house pets and animals: No history of recent travel: No Smoking Status: Never smoker substance use type: does not use what type of physical activity do you participate in: walking and bicycling ROS Constitutional Constitutional: Reports fatigue and malaise; Denies fever(s) Eyes Eyes: Denies blurry vision or change in vision ENT HEENT: Denies dizziness, dysphagia, epistaxis or headache(s) Cardiovascular Cardiovascular: Denies chest pain or dizziness Respiratory/Chest Respiratory/Chest: Reports cough and dyspnea Gastrointestinal Gastrointestinal: Denies abdominal pain, diarrhea, nausea or vomiting Genitourinary Genitourinary: Denies difficulty urinating or dysuria Musculoskeletal Musculoskeletal: Denies arthralgias, back pain or joint pain Integumentary Integumentary: Denies lesions, rash or skin ulcer Neurologic Neurologic: Denies abnormal gait or abnormal speech Psychiatric Psychiatric: Denies anxiety or depression Endocrine Endocrinology: Reports fatigue Hematologic/Lymphatic Hematologic/Lymphatic: Denies easy bleeding or easy bruising Physical Exam Const alert and no apparent distress General Appearance: cooperative HEENT normocephalic, head/scalp atraumatic and moist oral mucous membranes Eyes PERRL, EOMs intact bilaterally and conjunctivae normal Neck supple General: trachea midline Chest inspection of chest normal Resp normal respiratory effort Auscultation: rales Cardio regular rate and regular rhythm GI normal to inspection, nondistended, normoactive bowel sounds Extremity no clubbing, cyanosis or edema Skin no rashes or lesions noted Neuro CN's II-XII intact bilaterally, moves all extremities and no focal motor deficits Psych cooperative and affect normal Medical Records Data Medical Nutrition Assessment Dietitian: Malnutrition Criteria Met Start: 09/21/21 16:14 Freq: Status: Active Protocol: Document 09/21/21 16:14 RMA (Rec: 09/21/21 16:14 RMA [id number]) Nutrition Malnutrition Evidence of Malnutrition Exists Yes Malnutrition (severe): Acute Illness/Injury Evidenced By Suboptimal Energy Intake ( Severe),Weight Loss (Severe) Clinical Problem Acute Disease or Injury Related Malnutrition Etiology Severe protein/calorie malnutrition in the context of acute illness related to increased energy expenditure and inadequate oral intake Signs/Symptoms as evidenced by PO meeting less than 50-75% estimated nutrition needs and wt loss ~4 % x past 1 month and wt loss~9 -10% x past 2 months. Status Active Problem Recommendation Dietitian Recommendations/Changes Continue cardiac diet as ordered. Will add Ensure Compact TID w/ meals for an additional 660 kcal and 27 gm pro if consumed . Will adjust diet and ONS as needed to optimize nutrition and prevent further wt loss. Lab / Micro Data Result Diagrams: 09/22/21 05:52 09/22/21 05:52 Labs: Laboratory Results - last 24 hr 09/21/21 09:10: Sodium 135 L, Potassium 3.7, Chloride 101, Carbon Dioxide 27.0, Anion Gap 7, BUN 19 H, Creatinine 0.72, Estim Creat Clear Calc 66.77, Est GFR (MDRD) Af Amer 137, Est GFR (MDRD) Non-Af 113, BUN/Creatinine Ratio 26.2 H, Glucose 107 H, Calcium 8.6, Troponin I High Sens 6 09/21/21 09:10: Lactic Acid 0.8 09/21/21 09:10: Procalcitonin 0.08 09/21/21 09:10: B-Natriuretic Peptide 48.8 09/21/21 09:10: WBC 15.9 H, RBC 4.29 L, Hgb 12.4 L, Hct 37.1 L, MCV 86.5, MCH 28.9, MCHC 33.4, RDW Std Deviation 41.8, RDW Coeff of Juliet 13.4, Plt Count 634 H, MPV 8.8, Immature Gran % (Auto) 1.300 H, Neut % (Auto) 81.2 H, Lymph % (Auto) 5.8 L, [place] % (Auto) 9.4, Eos % (Auto) 1.9, Baso % (Auto) 0.4, Absolute Neuts (auto) 12.9 H, Absolute Lymphs (auto) 0.92, Nucleated RBC % 0 Micro: Microbiology 09/21/21 08:56 Mucosa - Nasopharyngeal Influenza Types A,B Direct FA (CATHY) - Final 09/21/21 08:46 Nasal Secretion SARS-CoV-2 Antigen (Rapid) - Final Radiology Impression Chest X-Ray 09/21/21 09:25 IMPRESSION: Bilateral pneumonia. Electronically Signed: Fernando Haines MD at 9:44 EST Tel , Service support , Charges/Coding Visit Charges Inpatient E&M: 28643 Init Hosp L3
[2021-09-22 06:49] LABS: Absolute Lymphocyte Count 0.73 X10^3/uL (0.83-4.51); Basophil# 0.02 X10^3/uL; Basophil% 0.1 % (0-1); Hematocrit 36.2 % (40-54); Hemoglobin 11.8 g/dL (13.0-16.5); Lymphocyte # 0.73 X10^3/ul (0.83-4.51); Lymphocyte % 4.7 % (19-41); Mean Corp Hgb Conc 32.6 g/dL (32-36); Monocyte# 0.58 X10^3/uL; Monocyte% 3.7 % (0-10); NRBC Flagged by Analyzer 0 % (0-5); Neutrophil # 13.97 X10^3/uL (2.7-7.7); Neutrophil % 90.1 % (47-70); Platelet Count 709 K/mm3 (150-450); RBC Distribution Width CV 13.4 % (11.6-14.6); RBC Distribution Width SD 42.1 fl (35.1-43.9); Red Blood Count 4.21 M/mm3 (4.6-6.2); White Blood Count 15.5 K/mm3 (4.4-11.0)
[2021-09-22 07:12] LABS: Anion Gap 8 (5-15); BUN 16 mg/dL (7-18); BUN/Creat Ratio 22.8 RATIO (10-20); Calcium,Total 8.8 mg/dL (8.5-10.1); Chloride 100 mmol/L (98-107); EST Glomerular Filtration Rate 117 mL/min (>60); Est Glom Filt Rate - Afr Amer 142 mL/min (>60); Estimated Creatinine Clearance 66.77 ml/min; Glucose 143 mg/dL (74-106); Potassium 4.2 mmol/L (3.5-5.1); Sodium Level 135 mmol/L (136-145)
[2021-09-22] MEDS: Atenolol 25 MG Tablet PO (09:55)
[2021-09-22] MEDS: Lisinopril 10 MG Tablet PO (09:55)
[2021-09-22] MEDS: Tamsulosin HCl 0.4 MG Capsule PO (09:55)
[2021-09-22] MEDS: Multivitamins,Therapeutic Tablet 1 TABLET PO (09:56)
[2021-09-22] MEDS: Aspirin E.C. 81 MG Tablet PO (09:56)
[2021-09-22] MEDS: Psyllium 1 PACKET PO (09:56)
[2021-09-22] MEDS: Enoxaparin 40 MG/0.4 ML Syringe SC (10:04)
[2021-09-22] MEDS: 0.9% Saline Lock 10 ML Syringe IV ×2 (10:05→22:27)
--- NOTE | 2021-09-22 10:17 | PN.HOSP_ITS ---
Subjective Subjective Patient seen and examined. He states he had a good night but his oxygen levels went down so he is now on 5 L of oxygen. He denies any cough or chest pain wheezing and denies any other complaints. Review of systems otherwise negative. Objective Data Objective Data Vital Signs: Vital Signs Temp Pulse Resp BP Pulse Ox 97.7 F L 89 17 148/83 H 92 09/22/21 09:50 09/22/21 09:50 09/22/21 09:50 09/22/21 09:50 09/22/21 09:50 Oxygen Flow Rate (L/min) 5 Oxygen Delivery Method Nasal Cannula Weight: 168 lb 3.403 oz Body Mass Index (BMI) 24.8 Intake & Output: Intake and Output for Last 24 Hours 09/20/21 09/21/21 09/22/21 23:59 23:59 23:59 Intake Total 1020 / 1020 Balance 1020 / 1020 Medical Nutrition Assessment Dietitian: Malnutrition Criteria Met Start: 09/21/21 16:14 Freq: Status: Active Protocol: Document 09/21/21 16:14 RMA (Rec: 09/21/21 16:14 RMA [id number]) Nutrition Malnutrition Evidence of Malnutrition Exists Yes Malnutrition (severe): Acute Illness/Injury Evidenced By Suboptimal Energy Intake ( Severe),Weight Loss (Severe) Clinical Problem Acute Disease or Injury Related Malnutrition Etiology Severe protein/calorie malnutrition in the context of acute illness related to increased energy expenditure and inadequate oral intake Signs/Symptoms as evidenced by PO meeting less than 50-75% estimated nutrition needs and wt loss ~4 % x past 1 month and wt loss~9 -10% x past 2 months. Status Active Problem Recommendation Dietitian Recommendations/Changes Continue cardiac diet as ordered. Will add Ensure Compact TID w/ meals for an additional 660 kcal and 27 gm pro if consumed . Will adjust diet and ONS as needed to optimize nutrition and prevent further wt loss. Lab / Micro Data Result Diagrams: 09/22/21 05:52 09/22/21 05:52 Labs: Laboratory Results - last 24 hr 09/22/21 05:52: WBC 15.5 H, RBC 4.21 L, Hgb 11.8 L, Hct 36.2 L, MCV 86.0, MCH 28.0, MCHC 32.6, RDW Std Deviation 42.1, RDW Coeff of Juliet 13.4, Plt Count 709 H, MPV 9.0, Immature Gran % (Auto) 1.400 H, Neut % (Auto) 90.1 H, Lymph % (Auto) 4.7 L, [place] % (Auto) 3.7, Eos % (Auto) 0.0, Baso % (Auto) 0.1, Absolute Neuts (auto) 14.0 H, Absolute Lymphs (auto) 0.73 L, Nucleated RBC % 0 09/22/21 05:52: Sodium 135 L, Potassium 4.2, Chloride 100, Carbon Dioxide 27.0, Anion Gap 8, BUN 16, Creatinine 0.70, Estim Creat Clear Calc 66.77, Est GFR (MDRD) Af Amer 142, Est GFR (MDRD) Non-Af 117, BUN/Creatinine Ratio 22.8 H, Glucose 143 H, Calcium 8.8 Micro: Microbiology 09/21/21 08:56 Mucosa - Nasopharyngeal Influenza Types A,B Direct FA (CATHY) - Final 09/21/21 08:46 Nasal Secretion SARS-CoV-2 Antigen (Rapid) - Final Physical Exam Const alert, oriented x3 and no apparent distress General Appearance: cooperative Exam Limitations: no limitations HEENT normocephalic and head/scalp atraumatic Head and Scalp: normocephalic Eyes PERRL and EOMs intact bilaterally Neck no lymphadenopathy, supple and no JVD Resp Resp Narrative: Tachypneic. Diminished breath sounds bibasilarly. No wheezes or crackles. On 5L of oxygen at time of review Cardio regular rate, regular rhythm, S1 normal heart sound, S2 normal heart sound and no murmurs GI normal to inspection, nondistended, normoactive bowel sounds, soft to palpation, non-tender and non-distended Palpation: no hepatosplenomegaly Extremity normal to inspection, full ROM, normal capillary refill and no clubbing, cyanosis or edema General Extremity: no tenderness to palpation of joints or extremities Peripheral Pulses: Yes pulses 2+ throughout Skin no rashes or lesions noted General Skin Exam: turgor normal Neuro oriented x3, CN's II-XII intact bilaterally and moves all extremities Sensorium / Orientation: awake and alert Psych affect normal Assessment & Plan Assessment/Plan (1) Cryptogenic organizing pneumonia: (2) Respiratory failure, [id number]: PLAN: Acute on chronic hypoxic respiratory failure * Patient has had a course of pneumonia over the last few weeks refractory to treatment. He had a bronchoscopy 2 days ago results of which are still pending. Has had multiple courses of antibiotics * Titrate oxygen to maintain saturation above 90%. Breathing treatments of bronchodilators. * Per recommendation of body painter, start on IV Solu-Medrol 40 mg twice daily to treat possible cryptogenic pneumonia * pulmonology on board; await rec's * Breathing treatments with bronchodilators. * #Thrombocytosis: chronic. Will monitor. platelets are 709 today. #Hypertension: On atenolol and lisinopril DVT prophylaxis: Lovenox CODE STATUS:full code Charges/Coding Visit Charges Inpatient E&M: 60284 Subs Hosp L2
[2021-09-23] VITALS (15 sets, daily range): BP systolic 134–151; BP diastolic 84–88; PULSE 62–86; RESP 14–20; TEMP 36.5–36.9; O2SAT 90–95
[2021-09-23 06:24] LABS: Absolute Lymphocyte Count 0.96 X10^3/uL (0.83-4.51); Absolute Neutrophil Count 16.6 X10^3/uL (2.0-7.7); Basophil# 0.06 X10^3/uL; Basophil% 0.3 % (0-1); Hematocrit 38.1 % (40-54); Hemoglobin 12.3 g/dL (13.0-16.5); Lymphocyte # 0.96 X10^3/ul (0.83-4.51); Lymphocyte % 5.1 % (19-41); Mean Corp Hgb Conc 32.3 g/dL (32-36); Mean Corpuscular Hgb 27.8 pg (27.0-32.0); Mean Corpuscular Volume 86.2 fL (80-94); Monocyte# 0.76 X10^3/uL; NRBC Flagged by Analyzer 0 % (0-5); Neutrophil # 16.64 X10^3/uL (2.7-7.7); Neutrophil % 88.4 % (47-70); Platelet Count 750 K/mm3 (150-450); RBC Distribution Width CV 13.3 % (11.6-14.6); RBC Distribution Width SD 41.9 fl (35.1-43.9); Red Blood Count 4.42 M/mm3 (4.6-6.2); White Blood Count 18.8 K/mm3 (4.4-11.0)
[2021-09-23 06:36] LABS: Anion Gap 6 (5-15); BUN 21 mg/dL (7-18); BUN/Creat Ratio 25.2 RATIO (10-20); Calcium,Total 9.1 mg/dL (8.5-10.1); Chloride 102 mmol/L (98-107); Creatinine, Serum 0.83 mg/dL (0.70-1.30); EST Glomerular Filtration Rate 96 mL/min (>60); Est Glom Filt Rate - Afr Amer 117 mL/min (>60); Estimated Creatinine Clearance 80.45 ml/min; Glucose 140 mg/dL (74-106); Potassium 4.4 mmol/L (3.5-5.1); Sodium Level 135 mmol/L (136-145)
[2021-09-23] MEDS: Multivitamins,Therapeutic Tablet 1 TABLET PO (08:22)
[2021-09-23] MEDS: Tamsulosin HCl 0.4 MG Capsule PO (08:22)
[2021-09-23] MEDS: Aspirin E.C. 81 MG Tablet PO (08:22)
[2021-09-23] MEDS: Atenolol 25 MG Tablet PO (08:22)
[2021-09-23] MEDS: Lisinopril 10 MG Tablet PO (08:22)
[2021-09-23] MEDS: Fluticasone 0.05% 1 SPRAY NASAL.SRY NASAL (08:23)
[2021-09-23] MEDS: Enoxaparin 40 MG/0.4 ML Syringe SC (08:23)
[2021-09-23] MEDS: Psyllium 1 PACKET PO ×2 (08:23→19:45)
[2021-09-23] MEDS: 0.9% Saline Lock 10 ML Syringe IV (08:26)
--- NOTE | 2021-09-23 11:35 | PN.CC_ITS ---
Assessment & Plan Assessment/Plan (1) Respiratory failure, [id number]: PLAN: RECOMMENDATIONS: 1. Wean supplemental oxygen to maintain saturations at or above 90%. 2. Continue IV steroids as ordered. 3. Await the remainder of the bronchoscopy culture work-up. 4. Encourage incentive spirometer use and mobilize patient as tolerated. 5. Walking oximetry prior to discharge IMPRESSIONS: 1. Acute on chronic hypoxemic respiratory failure The patient has a history of 2 recent hospitalizations since July, during which time, he was treated with antimicrobials for presumptive pneumonia. However, the patient never improved symptomatically. In fact, he has experienced worsening oxygenation status and symptoms. He presented to the outpatient clinic for evaluation. Repeat CT chest again demonstrated persistent infiltrates bilaterally. Autoimmune work-up was negative. Aspergillus antibodies were negative. The patient underwent bronchoscopy on September 19. Cell count was mixed in cellularity. Preliminary bacterial cultures were negative. The remainder of the infectious work-up is still pending. Patient a ppears to be improving somewhat following initiation of steroids. Continue wean oxygen as tolerated. Anticipate transitioning to prednisone therapy in the next 24 to 48 hours if continues to improve. Patient will likely need protracted steroids with outpatient follow-up. Potential discharge when patient can ambulate on 6 L or less. 2. History of hypertension Continue outpatient medication regimen. This note was generated with [employer] dictation software. It may contain incorrect words, spelling, and punctuation that were not noted in checking the note before signing. Subjective Subjective Patient did okay overnight. No acute issues were reported. Patient has been able to be weaned to 4 L nasal cannula during the day. Patient did report some frustration as he felt like the steroids were not working over the weekend. Patient still desaturates quickly with any movement. Objective Data Objective Data Vital Signs: Vital Signs Temp Pulse Resp BP Pulse Ox 36.9 C 82 18 134/88 H 94 09/23/21 08:20 09/23/21 08:20 09/23/21 08:20 09/23/21 08:20 09/23/21 08:20 Oxygen Flow Rate (L/min) 4 Oxygen Delivery Method Nasal Cannula Weight: 76.3 kg Body Mass Index (BMI) 24.8 Intake & Output: Intake and Output for Last 24 Hours 09/21/21 09/22/21 09/23/21 23:59 23:59 23:59 Intake Total 1020 / 1020 1240 / 1240 Balance 1020 / 1020 1240 / 1240 Medical Nutrition Assessment Dietitian: Malnutrition Criteria Met Start: 09/21/21 16:14 Freq: Status: Active Protocol: Document 09/21/21 16:14 RMA (Rec: 09/21/21 16:14 RMA [id number]) Nutrition Malnutrition Evidence of Malnutrition Exists Yes Malnutrition (severe): Acute Illness/Injury Evidenced By Suboptimal Energy Intake ( Severe),Weight Loss (Severe) Clinical Problem Acute Disease or Injury Related Malnutrition Etiology Severe protein/calorie malnutrition in the context of acute illness related to increased energy expenditure and inadequate oral intake Signs/Symptoms as evidenced by PO meeting less than 50-75% estimated nutrition needs and wt loss ~4 % x past 1 month and wt loss~9 -10% x past 2 months. Status Active Problem Recommendation Dietitian Recommendations/Changes Continue cardiac diet as ordered. Will add Ensure Compact TID w/ meals for an additional 660 kcal and 27 gm pro if consumed . Will adjust diet and ONS as needed to optimize nutrition and prevent further wt loss. Lab / Micro Data Result Diagrams: 09/23/21 05:45 09/23/21 05:45 Labs: Laboratory Results - last 24 hr 09/23/21 05:45: WBC 18.8 H, RBC 4.42 L, Hgb 12.3 L, Hct 38.1 L, MCV 86.2, MCH 27.8, MCHC 32.3, RDW Std Deviation 41.9, RDW Coeff of [place] 13.3, Plt Count 750 H, MPV 9.0, Immature Gran % (Auto) 2.200 H, Neut % (Auto) 88.4 H, Lymph % (Auto) 5.1 L, [place] % (Auto) 4.0, Eos % (Auto) 0.0, Baso % (Auto) 0.3, Absolute Neuts (auto) 16.6 H, Absolute Lymphs (auto) 0.96, Nucleated RBC % 0 09/23/21 05:45: Sodium 135 L, Potassium 4.4, Chloride 102, Carbon Dioxide 27.0, Anion Gap 6, BUN 21 H, Creatinine 0.83, Estim Creat Clear Calc 80.45, Est GFR (MDRD) Af Amer 117, Est GFR (MDRD) Non-Af 96, BUN/Creatinine Ratio 25.2 H, Glucose 140 H, Calcium 9.1 Micro: Microbiology 09/21/21 08:56 Mucosa - Nasopharyngeal Influenza Types A,B Direct FA (CATHY) - Final 09/21/21 08:46 Nasal Secretion SARS-CoV-2 Antigen (Rapid) - Final Physical Exam Const alert and no apparent distress General Appearance: cooperative HEENT normocephalic, head/scalp atraumatic and moist oral mucous membranes Eyes PERRL, EOMs intact bilaterally and conjunctivae normal Neck supple General: trachea midline Chest inspection of chest normal Resp normal respiratory effort Auscultation: rales; Negative for rhonchi or wheezes Cardio regular rate and regular rhythm GI normal to inspection, nondistended, normoactive bowel sounds Extremity no clubbing, cyanosis or edema Skin no rashes or lesions noted Neuro CN's II-XII intact bilaterally, moves all extremities and no focal motor deficits Psych cooperative and affect normal Charges/Coding Visit Charges Inpatient E&M: 70285 Subs Hosp L2
--- NOTE | 2021-09-23 15:45 | PN.HOSP_ITS ---
Subjective Subjective Doing well, breathing little bit better now that he is on 4 L nasal cannula. Still awaiting any pathology results from the bronchoscopy Objective Data Objective Data Vital Signs: Vital Signs Temp Pulse Resp BP Pulse Ox 98.5 F 65 18 134/88 H 93 09/23/21 08:20 09/23/21 11:00 09/23/21 08:20 09/23/21 08:20 09/23/21 09:30 Oxygen Flow Rate (L/min) 4 Oxygen Delivery Method Nasal Cannula Weight: 168 lb 3.403 oz Body Mass Index (BMI) 24.8 Intake & Output: Intake and Output for Last 24 Hours 09/22/21 09/23/21 09/24/21 03:59 03:59 03:59 Intake Total 1020 / 1020 1240 / 1240 Balance 1020 / 1020 1240 / 1240 Medical Nutrition Assessment Dietitian: Malnutrition Criteria Met Start: 09/21/21 16:14 Freq: Status: Active Protocol: Document 09/21/21 16:14 RMA (Rec: 09/21/21 16:14 RMA [id number]) Nutrition Malnutrition Evidence of Malnutrition Exists Yes Malnutrition (severe): Acute Illness/Injury Evidenced By Suboptimal Energy Intake ( Severe),Weight Loss (Severe) Clinical Problem Acute Disease or Injury Related Malnutrition Etiology Severe protein/calorie malnutrition in the context of acute illness related to increased energy expenditure and inadequate oral intake Signs/Symptoms as evidenced by PO meeting less than 50-75% estimated nutrition needs and wt loss ~4 % x past 1 month and wt loss~9 -10% x past 2 months. Status Active Problem Recommendation Dietitian Recommendations/Changes Continue cardiac diet as ordered. Will add Ensure Compact TID w/ meals for an additional 660 kcal and 27 gm pro if consumed . Will adjust diet and ONS as needed to optimize nutrition and prevent further wt loss. Lab / Micro Data Result Diagrams: 09/23/21 05:45 09/23/21 05:45 Labs: Laboratory Results - last 24 hr 09/23/21 05:45: WBC 18.8 H, RBC 4.42 L, Hgb 12.3 L, Hct 38.1 L, MCV 86.2, MCH 27.8, MCHC 32.3, RDW Std Deviation 41.9, RDW Coeff of [place] 13.3, Plt Count 750 H, MPV 9.0, Immature Gran % (Auto) 2.200 H, Neut % (Auto) 88.4 H, Lymph % (Auto) 5.1 L, [place] % (Auto) 4.0, Eos % (Auto) 0.0, Baso % (Auto) 0.3, Absolute Neuts (auto) 16.6 H, Absolute Lymphs (auto) 0.96, Nucleated RBC % 0 09/23/21 05:45: Sodium 135 L, Potassium 4.4, Chloride 102, Carbon Dioxide 27.0, Anion Gap 6, BUN 21 H, Creatinine 0.83, Estim Creat Clear Calc 80.45, Est GFR (MDRD) Af Amer 117, Est GFR (MDRD) Non-Af 96, BUN/Creatinine Ratio 25.2 H, Glucose 140 H, Calcium 9.1 Micro: Microbiology 09/21/21 08:50 Blood Culture (Wb) #2 - Anticubital Left Blood Culture - Preliminary No growth in 48 hours. 09/21/21 09:00 Blood Culture (Wb) - Right Forearm Blood Culture - Preliminary No growth in 48 hours. 09/21/21 08:56 Mucosa - Nasopharyngeal Influenza Types A,B Direct FA (CATHY) - Final 09/21/21 08:46 Nasal Secretion SARS-CoV-2 Antigen (Rapid) - Final Physical Exam Const alert, oriented x3 and no apparent distress General Appearance: cooperative HEENT normocephalic and moist oral mucous membranes Eyes PERRL, EOMs intact bilaterally and conjunctivae normal Neck supple and no JVD Resp normal respiratory effort, no retractions and no use of accessory muscles Auscultation: rales; Negative for crackles, rhonchi or wheezes Cardio regular rate, regular rhythm, S1 normal heart sound, S2 normal heart sound and no murmurs GI soft to palpation, non-tender and non-distended; Negative for hepatosplenomegaly Extremity no clubbing, cyanosis or edema Skin no rashes or lesions noted Neuro no focal motor deficits and no sensory deficits noted Psych affect normal Appearance: appropriate Assessment & Plan Assessment/Plan (1) Cryptogenic organizing pneumonia: (2) Respiratory failure, [id number]-[id number]: PLAN: Acute on chronic hypoxic respiratory failure * Thought to be due to cryptogenic pneumonia. * Patient has had a course of pneumonia over the last few weeks refractory to treatment. He had a bronchoscopy several days ago results of which are still pending. * Titrate oxygen to maintain saturation above 90%. Breathing treatments of bronchodilators. * Per recommendation of barytes grinder, start on IV Solu-Medrol 40 mg twice daily * Consult pulmonology, appreciate recommendations * Breathing treatments with bronchodilators. * Will plan for an ambulatory pulse ox in the morning to evaluate for possible discharge #Thrombocytosis: chronic. Will monitor #Hypertension: On atenolol and lisinopril * Blood pressures are stable continue to monitor DVT: Lovenox Charges/Coding Visit Charges Inpatient E&M: 26348 Subs Hosp L2
[2021-09-24] VITALS (11 sets, daily range): BP systolic 137–147; BP diastolic 78–89; PULSE 59–90; RESP 12–18; TEMP 36.4–36.9; O2SAT 85–94
[2021-09-24 06:44] LABS: Absolute Lymphocyte Count 0.99 X10^3/uL (0.83-4.51); Absolute Neutrophil Count 16.1 X10^3/uL (2.0-7.7); Basophil# 0.06 X10^3/uL; Basophil% 0.3 % (0-1); Eosinophil# 0.01 X10^3/uL; Eosinophils% 0.1 % (0-5); Hematocrit 37.6 % (40-54); Hemoglobin 12.1 g/dL (13.0-16.5); Lymphocyte # 0.99 X10^3/ul (0.83-4.51); Lymphocyte % 5.3 % (19-41); Mean Corp Hgb Conc 32.2 g/dL (32-36); Mean Corpuscular Hgb 27.8 pg (27.0-32.0); Mean Corpuscular Volume 86.4 fL (80-94); Monocyte# 1.14 X10^3/uL; Monocyte% 6.1 % (0-10); NRBC Flagged by Analyzer 0 % (0-5); Neutrophil # 16.12 X10^3/uL (2.7-7.7); Neutrophil % 85.8 % (47-70); Platelet Count 747 K/mm3 (150-450); RBC Distribution Width CV 13.5 % (11.6-14.6); RBC Distribution Width SD 42.4 fl (35.1-43.9); Red Blood Count 4.35 M/mm3 (4.6-6.2); White Blood Count 18.8 K/mm3 (4.4-11.0)
[2021-09-24 07:00] LABS: Anion Gap 6 (5-15); BUN 21 mg/dL (7-18); BUN/Creat Ratio 26.3 RATIO (10-20); Calcium,Total 8.6 mg/dL (8.5-10.1); Chloride 100 mmol/L (98-107); EST Glomerular Filtration Rate 101 mL/min (>60); Est Glom Filt Rate - Afr Amer 122 mL/min (>60); Estimated Creatinine Clearance 83.47 ml/min; Glucose 123 mg/dL (74-106); Potassium 4.3 mmol/L (3.5-5.1); Sodium Level 135 mmol/L (136-145)
[2021-09-24] MEDS: Fluticasone 0.05% 1 SPRAY NASAL.SRY NASAL (08:51)
[2021-09-24] MEDS: Psyllium 1 PACKET PO ×2 (08:52→20:13)
[2021-09-24] MEDS: Aspirin E.C. 81 MG Tablet PO (08:54)
[2021-09-24] MEDS: Multivitamins,Therapeutic Tablet 1 TABLET PO (08:54)
[2021-09-24] MEDS: Atenolol 25 MG Tablet PO (08:54)
[2021-09-24] MEDS: Lisinopril 10 MG Tablet PO (08:54)
[2021-09-24] MEDS: Tamsulosin HCl 0.4 MG Capsule PO (08:54)
[2021-09-24] MEDS: Enoxaparin 40 MG/0.4 ML Syringe SC (08:55)
[2021-09-24] MEDS: 0.9% Saline Lock 10 ML Syringe IV (08:57)
--- NOTE | 2021-09-24 10:39 | PCM.PN.INT ---
Assessment & Plan Assessment/Plan (1) Respiratory failure, [id number]: PLAN: RECOMMENDATIONS: 1. Wean supplemental oxygen to maintain saturations at or above 90%. 2. Continue IV steroids as ordered. We will transition to p.o. steroids on discharge 3. Await the remainder of the bronchoscopy culture work-up. 4. Encourage incentive spirometer use and mobilize patient as tolerated. 5. Walking oximetry prior to discharge IMPRESSIONS: 1. Acute on chronic hypoxemic respiratory failure The patient has a history of 2 recent hospitalizations since July, during which time, he was treated with antimicrobials for presumptive pneumonia. However, the patient never improved symptomatically. In fact, he has experienced worsening oxygenation status and symptoms. He presented to the outpatient clinic for evaluation. Repeat CT chest again demonstrated persistent infiltrates bilaterally. Autoimmune work-up was negative. Aspergillus antibodies were negative. The patient underwent bronchoscopy on September 19. Cell count was mixed in cellularity. Preliminary bacterial cultures were negative. The remainder of the infectious work-up is still pending. Patient appears to be improving somewhat following initiation of steroids. Continue wean oxygen as tolerated. Anticipate transitioning to prednisone therapy in the next 24 to 48 hours if continues to improve. Patient will likely need protracted steroid taper with outpatient follow-up. Potential discharge when patient can ambulate on 6 L or less. 2. History of hypertension Continue outpatient medication regimen. This note was generated with [employer] dictation software. It may contain incorrect words, spelling, and punctuation that were not noted in checking the note before signing. Subjective Subjective Patient did okay overnight. No acute issues were reported. Patient subjectively feels improved compared to yesterday. Patient is not reporting any chest pain. Patient did report a wet cough overnight with only mild production. Patient states he was walking with therapy this morning and tolerating well Objective Data Objective Data Vital Signs: Vital Signs Temp Pulse Resp BP Pulse Ox 36.9 C 90 18 147/86 H 94 09/24/21 08:50 09/24/21 08:50 09/24/21 08:50 09/24/21 08:50 09/24/21 08:50 Oxygen Flow Rate (L/min) [ 8 AMBULATING with Oxygen #2] Oxygen Flow Rate (L/min) [ 4 AMBULATING with Oxygen #1] Oxygen Flow Rate (L/min) [At 4 REST with Oxygen] Oxygen Flow Rate (L/min) 4 Oxygen Delivery Method Nasal Cannula Weight: 76.3 kg Body Mass Index (BMI) 24.8 Intake & Output: Intake and Output for Last 24 Hours 09/22/21 09/23/21 09/24/21 23:59 23:59 23:59 Intake Total 1240 / 1240 600 / 600 300 / 300 Balance 1240 / 1240 600 / 600 300 / 300 Medical Nutrition Assessment Dietitian: Malnutrition Criteria Met Start: 09/21/21 16:14 Freq: Status: Active Protocol: Document 09/21/21 16:14 RMA (Rec: 09/21/21 16:14 RMA [id number]) Nutrition Malnutrition Evidence of Malnutrition Exists Yes Malnutrition (severe): Acute Illness/Injury Evidenced By Suboptimal Energy Intake ( Severe),Weight Loss (Severe) Clinical Problem Acute Disease or Injury Related Malnutrition Etiology Severe protein/calorie malnutrition in the context of acute illness related to increased energy expenditure and inadequate oral intake Signs/Symptoms as evidenced by PO meeting less than 50-75% estimated nutrition needs and wt loss ~4 % x past 1 month and wt loss~9 -10% x past 2 months. Status Active Problem Recommendation Dietitian Recommendations/Changes Continue cardiac diet as ordered. Will add Ensure Compact TID w/ meals for an additional 660 kcal and 27 gm pro if consumed . Will adjust diet and ONS as needed to optimize nutrition and prevent further wt loss. Lab / Micro Data Result Diagrams: 09/24/21 05:35 09/24/21 05:35 Labs: Laboratory Results - last 24 hr 09/24/21 05:35: WBC 18.8 H, RBC 4.35 L, Hgb 12.1 L, Hct 37.6 L, MCV 86.4, MCH 27.8, MCHC 32.2, RDW Std Deviation 42.4, RDW Coeff of Juliet 13.5, Plt Count 747 H, MPV 9.0, Immature Gran % (Auto) 2.400 H, Neut % (Auto) 85.8 H, Lymph % (Auto) 5.3 L, [place] % (Auto) 6.1, Eos % (Auto) 0.1, Baso % (Auto) 0.3, Absolute Neuts (auto) 16.1 H, Absolute Lymphs (auto) 0.99, Nucleated RBC % 0 09/24/21 05:35: Sodium 135 L, Potassium 4.3, Chloride 100, Carbon Dioxide 29.0, Anion Gap 6, BUN 21 H, Creatinine 0.80, Estim Creat Clear Calc 83.47, Est GFR (MDRD) Af Amer 122, Est GFR (MDRD) Non-Af 101, BUN/Creatinine Ratio 26.3 H, Glucose 123 H, Calcium 8.6 Micro: Microbiology 09/21/21 08:50 Blood Culture (Wb) #2 - Anticubital Left Blood Culture - Preliminary No growth in 48 hours. 09/21/21 09:00 Blood Culture (Wb) - Right Forearm Blood Culture - Preliminary No growth in 48 hours. 09/21/21 08:56 Mucosa - Nasopharyngeal Influenza Types A,B Direct FA (CATHY) - Final 09/21/21 08:46 Nasal Secretion SARS-CoV-2 Antigen (Rapid) - Final Physical Exam Const alert and no apparent distress General Appearance: cooperative HEENT normocephalic, head/scalp atraumatic and moist oral mucous membranes Eyes PERRL, EOMs intact bilaterally and conjunctivae normal Neck supple General: trachea midline Chest inspection of chest normal Resp normal respiratory effort Auscultation: rales; Negative for rhonchi or wheezes Cardio regular rate and regular rhythm GI normal to inspection, nondistended, normoactive bowel sounds Extremity no clubbing, cyanosis or edema Skin no rashes or lesions noted Neuro CN's II-XII intact bilaterally, moves all extremities and no focal motor deficits Psych cooperative and affect normal Charges/Coding Visit Charges Inpatient E&M: 47797 Subs Hosp L2
--- NOTE | 2021-09-24 13:20 | PN.HOSP_ITS ---
Subjective Subjective Doing well, no issues overnight. He did require 8 L with ambulation today therefore cannot be discharged Objective Data Objective Data Vital Signs: Vital Signs Temp Pulse Resp BP Pulse Ox 98.5 F 65 18 147/86 H 94 09/24/21 08:50 09/24/21 11:00 09/24/21 08:50 09/24/21 08:50 09/24/21 08:50 Oxygen Flow Rate (L/min) [ 8 AMBULATING with Oxygen #2] Oxygen Flow Rate (L/min) [ 4 AMBULATING with Oxygen #1] Oxygen Flow Rate (L/min) [At 4 REST with Oxygen] Oxygen Flow Rate (L/min) 4 Oxygen Delivery Method Nasal Cannula Weight: 168 lb 3.403 oz Body Mass Index (BMI) 24.8 Intake & Output: Intake and Output for Last 24 Hours 09/23/21 09/24/21 09/25/21 03:59 03:59 03:59 Intake Total 1240 / 1240 900 / 900 240 / 240 Balance 1240 / 1240 900 / 900 240 / 240 Medical Nutrition Assessment Dietitian: Malnutrition Criteria Met Start: 09/21/21 16:14 Freq: Status: Active Protocol: Document 09/21/21 16:14 RMA (Rec: 09/21/21 16:14 RMA [id number]) Nutrition Malnutrition Evidence of Malnutrition Exists Yes Malnutrition (severe): Acute Illness/Injury Evidenced By Suboptimal Energy Intake ( Severe),Weight Loss (Severe) Clinical Problem Acute Disease or Injury Related Malnutrition Etiology Severe protein/calorie malnutrition in the context of acute illness related to increased energy expenditure and inadequate oral intake Signs/Symptoms as evidenced by PO meeting less than 50-75% estimated nutrition needs and wt loss ~4 % x past 1 month and wt loss~9 -10% x past 2 months. Status Active Problem Recommendation Dietitian Recommendations/Changes Continue cardiac diet as ordered. Will add Ensure Compact TID w/ meals for an additional 660 kcal and 27 gm pro if consumed . Will adjust diet and ONS as needed to optimize nutrition and prevent further wt loss. Lab / Micro Data Result Diagrams: 09/24/21 05:35 09/24/21 05:35 Labs: Laboratory Results - last 24 hr 09/24/21 05:35: WBC 18.8 H, RBC 4.35 L, Hgb 12.1 L, Hct 37.6 L, MCV 86.4, MCH 27.8, MCHC 32.2, RDW Std Deviation 42.4, RDW Coeff of Juliet 13.5, Plt Count 747 H, MPV 9.0, Immature Gran % (Auto) 2.400 H, Neut % (Auto) 85.8 H, Lymph % (Auto) 5.3 L, [place] % (Auto) 6.1, Eos % (Auto) 0.1, Baso % (Auto) 0.3, Absolute Neuts (auto) 16.1 H, Absolute Lymphs (auto) 0.99, Nucleated RBC % 0 09/24/21 05:35: Sodium 135 L, Potassium 4.3, Chloride 100, Carbon Dioxide 29.0, Anion Gap 6, BUN 21 H, Creatinine 0.80, Estim Creat Clear Calc 83.47, Est GFR (MDRD) Af Amer 122, Est GFR (MDRD) Non-Af 101, BUN/Creatinine Ratio 26.3 H, Glucose 123 H, Calcium 8.6 Micro: Microbiology 09/21/21 08:50 Blood Culture (Wb) #2 - Anticubital Left Blood Culture - Preliminary No growth in 48 hours. 09/21/21 09:00 Blood Culture (Wb) - Right Forearm Blood Culture - Preli minary No growth in 48 hours. 09/21/21 08:56 Mucosa - Nasopharyngeal Influenza Types A,B Direct FA (CATHY) - Final 09/21/21 08:46 Nasal Secretion SARS-CoV-2 Antigen (Rapid) - Final Physical Exam Const alert, oriented x3 and no apparent distress General Appearance: cooperative HEENT normocephalic and moist oral mucous membranes Eyes PERRL, EOMs intact bilaterally and conjunctivae normal Neck supple and no JVD Resp normal respiratory effort, no retractions and no use of accessory muscles Auscultation: rales; Negative for crackles, rhonchi or wheezes Cardio regular rate, regular rhythm, S1 normal heart sound, S2 normal heart sound and no murmurs GI soft to palpation, non-tender and non-distended; Negative for hepatosplenomegaly Extremity no clubbing, cyanosis or edema Skin no rashes or lesions noted Neuro no focal motor deficits and no sensory deficits noted Psych affect normal Appearance: appropriate Assessment & Plan Assessment/Plan (1) Cryptogenic organizing pneumonia: (2) Respiratory failure, [id number]: PLAN: Acute on chronic hypoxic respiratory failure * Thought to be due to cryptogenic pneumonia. * Patient has had a course of pneumonia over the last few weeks refractory to treatment. He had a bronchoscopy several days ago results of which are still pending. * Titrate oxygen to maintain saturation above 90%. Breathing treatments of bronchodilators. * Per recommendation of inspector pawnshop detail, start on IV Solu-Medrol 40 mg twice daily * Consult pulmonology, appreciate recommendations * Breathing treatments with bronchodilators. * Ambulatory pulse ox today demonstrated the need for 8 L of oxygen to maintain oxygen saturation of 90% #Thrombocytosis: chronic. Will monitor #Hypertension: On atenolol and lisinopril * Blood pressures are stable continue to monitor DVT: Lovenox Charges/Coding Visit Charges Inpatient E&M: 75945 Subs Hosp L2
--- NOTE | 2021-09-24 13:38 | CASEMGMT ---
Readmission chart review: 07/31-08/01/21 Sepsis secondary to pna 08/19-08/23/21 Resp failure d/t pna 09/21/21-current A on C hypoxic resp failure Pt with increased SOB and worsened pna despite antibx. Pt is following with [facility] and had OP bronch, which some results are still pending. Pt was initially did not qualify for oxygen at d/c on 08/01/21, but then was set up with home oxygen 2L at rest and 4L w/ exertion by PCP and placed on prednisone. Pt informed this RN CM that he was not putting it up to 4L w/ exertion at home. Pt then returned to [facility] ED on 08/19/21 for increased SOB. Pt qualified for same oxygen at discharge and per therapy, no further therapy was recommended. Pt did f/u with pulm on 09/12/21. Pt is improving with steroids per cotton roll packer notes and pt may have cryptogenic organizing pna. Pt is currently on 4L at rest and needed 8L w/ exertion. CM to follow for any further discharge planning/needs. SStaten DANAE ROSEN
[2021-09-25] VITALS (12 sets, daily range): BP systolic 131–137; BP diastolic 80–81; PULSE 57–98; RESP 16–18; TEMP 36.6–36.7; O2SAT 85–96
[2021-09-25 06:50] LABS: Anion Gap 6 (5-15); BUN 21 mg/dL (7-18); Calcium,Total 9.1 mg/dL (8.5-10.1); Chloride 100 mmol/L (98-107); Creatinine, Serum 0.81 mg/dL (0.70-1.30); EST Glomerular Filtration Rate 100 mL/min (>60); Est Glom Filt Rate - Afr Amer 121 mL/min (>60); Estimated Creatinine Clearance 82.43 ml/min; Glucose 124 mg/dL (74-106); Potassium 4.6 mmol/L (3.5-5.1); Sodium Level 136 mmol/L (136-145)
[2021-09-25] MEDS: Fluticasone 0.05% 1 SPRAY NASAL.SRY NASAL (08:49)
[2021-09-25] MEDS: Aspirin E.C. 81 MG Tablet PO (08:50)
[2021-09-25] MEDS: Atenolol 25 MG Tablet PO (08:50)
[2021-09-25] MEDS: Lisinopril 10 MG Tablet PO (08:50)
[2021-09-25] MEDS: Multivitamins,Therapeutic Tablet 1 TABLET PO (08:50)
[2021-09-25] MEDS: Furosemide 40 MG/4 ML Vial IV (08:51)
[2021-09-25] MEDS: Tamsulosin HCl 0.4 MG Capsule PO (08:51)
[2021-09-25] MEDS: Psyllium 1 PACKET PO (08:51)
[2021-09-25] MEDS: 0.9% Saline Lock 10 ML Syringe IV (08:51)
[2021-09-25] MEDS: Enoxaparin 40 MG/0.4 ML Syringe SC (08:51)
--- NOTE | 2021-09-25 10:33 | PN.CC_ITS ---
Assessment & Plan Assessment/Plan (1) Respiratory failure, zeqsj-yh-zzoyyap: PLAN: RECOMMENDATIONS: 1. Wean supplemental oxygen to maintain saturations at or above 90%. 2. Transition to prednisone 40 mg p.o. daily until seen as an outpatient 3. Await results of fungal culture from bronchoscopy. This can be followed up as an outpatient 4. Encourage incentive spirometer use and mobilize patient as tolerated. 5. Okay to discharge from a pulmonary perspective with 2-week follow-up IMPRESSIONS: 1. Acute on chronic hypoxemic respiratory failure The patient has a history of 2 recent hospitalizations since July, during which time, he was treated with antimicrobials for presumptive pneumonia. However, the patient never improved symptomatically. In fact, he has experienced worsening oxygenation status and symptoms. He presented to the outpatient clinic for evaluation. Repeat CT chest again demonstrated persistent infiltrates bilaterally. Autoimmune work-up was negative. Aspergillus antibodies were negative. The patient underwent bronchoscopy on September 19. Cell count was mixed in cellularity. Preliminary bacterial cultures were negative. The remainder of the infectious work-up is still pending. Patient is much improved compared to previous. Anticipate transition to prednisone therapy at 40 mg/day until seen as an outpatient. At that time will likely decrease by 10 mg/day every week until off. Signs and symptoms of worsening or fungal pneumonia were reviewed with the patient. He was instructed to call if any of these develop. 2. History of hypertension Continue outpatient medication regimen. This note was generated with [employer] dictation software. It may contain incorrect words, spelling, and punctuation that were not noted in checking the note before signing. Subjective Subjective Patient did okay overnight. No acute issues were reported. Patient feels he is strong enough to go home. Patient believes every day is slightly better than the previous. Objective Data Objective Data Vital Signs: Vital Signs Temp Pulse Resp BP Pulse Ox 36.7 C 98 18 137/81 H 91 09/25/21 08:00 09/25/21 08:00 09/25/21 08:00 09/25/21 08:00 09/25/21 09:30 Oxygen Flow Rate (L/min) [ 8 AMBULATING with Oxygen #2] Oxygen Flow Rate (L/min) [ 4 AMBULATING with Oxygen #1] Oxygen Flow Rate (L/min) [At 4 REST with Oxygen] Oxygen Flow Rate (L/min) 4 Oxygen Delivery Method Nasal Cannula Weight: 76.3 kg Body Mass Index (BMI) 24.8 Intake & Output: Intake and Output for Last 24 Hours 09/23/21 09/24/21 09/25/21 23:59 23:59 23:59 Intake Total 600 / 600 900 / 900 Balance 600 / 600 900 / 900 Medical Nutrition Assessment Dietitian: Malnutrition Criteria Met Start: 09/21/21 16:14 Freq: Status: Active Protocol: Document 09/21/21 16:14 RMA (Rec: 09/21/21 16:14 RMA [id number]) Nutrition Malnutrition Evidence of Malnutrition Exists Yes Malnutrition (severe): Acute Illness/Injury Evidenced By Suboptimal Energy Intake ( Severe),Weight Loss (Severe) Clinical Problem Acute Disease or Injury Related Malnutrition Etiology Severe protein/calorie malnutrition in the context of acute illness related to increased energy expenditure and inadequate oral intake Signs/Symptoms as evidenced by PO meeting less than 50-75% estimated nutrition needs and wt loss ~4 % x past 1 month and wt loss~9 -10% x past 2 months. Status Active Problem Recommendation Dietitian Recommendations/Changes Continue cardiac diet as ordered. Will add Ensure Compact TID w/ meals for an additional 660 kcal and 27 gm pro if consumed . Will adjust diet and ONS as needed to optimize nutrition and prevent further wt loss. Lab / Micro Data Result Diagrams: 09/24/21 05:35 09/25/21 06:06 Labs: Laboratory Results - last 24 hr 09/25/21 06:06: Sodium 136, Potassium 4.6, Chloride 100, Carbon Dioxide 30.0, Anion Gap 6, BUN 21 H, Creatinine 0.81, Estim Creat Clear Calc 82.43, Est GFR (MDRD) Af Amer 121, Est GFR (MDRD) Non-Af 100, BUN/Creatinine Ratio 26.0 H, Glucose 124 H, Calcium 9.1 Micro: Microbiology 09/21/21 08:50 Blood Culture (Wb) #2 - Anticubital Left Blood Culture - Preliminary No growth in 48 hours. 09/21/21 09:00 Blood Culture (Wb) - Right Forearm Blood Culture - Preliminary No growth in 48 hours. 09/21/21 08:56 Mucosa - Nasopharyngeal Influenza Types A,B Direct FA (CATHY) - Final 09/21/21 08:46 Nasal Secretion SARS-CoV-2 Antigen (Rapid) - Final Physical Exam Const alert and no apparent distress General Appearance: cooperative HEENT normocephalic, head/scalp atraumatic and moist oral mucous membranes Eyes PERRL, EOMs intact bilaterally and conjunctivae normal Neck supple General: trachea midline Chest inspection of chest normal Resp normal respiratory effort Auscultation: rales; Negative for rhonchi or wheezes Cardio regular rate and regular rhythm GI normal to inspection, nondistended, normoactive bowel sounds Extremity no clubbing, cyanosis or edema Skin no rashes or lesions noted Neuro CN's II-XII intact bilaterally, moves all extremities and no focal motor deficits Psych cooperative and affect normal Charges/Coding Visit Charges Inpatient E&M: 24784 Subs Hosp L2
--- NOTE | 2021-09-25 11:10 | CASEMGMT ---
Addendum entered by Radha Molina 09/25/21 11:45: Updated O2 script for 4l/m continuously faxed to [facility], [place] at this time. Original Note: DANAE ROSEN NOTE: Home O2 ambulatory testing has been completed. Pt now requires O2 @ 4l/m @ rest and w/exertion. Pt is aware. Will obtain updated O2 script and fax to [facility], [place] when available. Pt states his will bring in portable O2 tank to go home on. Pt denies having any home discharge needs, concerns, or questions. Reece PARHAM RN, CM
--- NOTE | 2021-09-25 11:16 | PCM.DC ---
Discharge Instructions Diet Discharge Diet: Low fat / Low cholesterol Activity Discharge Activity: Return to Normal Activity Dressing / Incision Call your doctor if you observe: Fever of 101 or Higher, Shortness of breath, Dizziness, Fainting spells, Swelling in the ankles, Chest pain and Increased palpitations (irregular heartbeat) Follow Up Care Test Results: Test results from this visit will be discussed in further detail at your follow-up appointment, if applicable. Discharge Plan Admission Admit Date/Time: 09/21/21 10:48 Attending Provider: Aburey Shah Primary Care Provider: Teetee Mcdowell Consulting Providers: Ron Clements ; Darius Mosqueda ; Zaynab Arteaga NP Discharge Orders/Prescriptions Prescriptions: New prednisone 10 mg tablet 40 mg PO DAILY Qty: 90 RF: 0 Continued fluticasone propionate 50 mcg/actuation spray,suspension 1 spray intranasal DAILY PRN (Reason: allergies) RF: 0 Zyrtec 10 mg capsule 10 mg PO DAILY PRN (Reason: ALLERGIES) RF: 0 atenolol 25 mg Tablet 25 mg PO DAILY RF: 0 tamsulosin 0.4 mg Capsule 0.4 mg PO DAILY RF: 0 lisinopril 10 mg Tablet 10 mg PO DAILY RF: 0 aspirin 81 mg Tablet,Delayed Release (Dr/Ec) 81 mg PO DAILY RF: 0 sildenafil 100 mg tablet 100 mg PO PRN PRN (Reason: Erectile Dysfunction) RF: 0 multivitamin Capsule 1 cap PO DAILY RF: 0 Probiotic 3 billion cell Capsule 3,000 mmu cells PO DAILY RF: 0 (DME) Handicap Placcard See Rx Instructions .ROUTE .MEDSUPPLY Qty: 1 RF: 0 Referrals / Follow Up: Ron Clements MD [STAFF PHYSICIAN] - Within 2 Weeks Teetee Mcdowell MD [Primary Care Provider] - Within 1 Week Disposition Disposition (needs filled in before D/C Order can be placed): Home, Self Care
--- NOTE | 2021-09-25 11:20 | DS.PCM_ITS ---
Providers Date of Admission: 09/21/21 Primary Care Physician: Dr. Teetee Mcdowell MD Consultations 09/21/21 17:02 Consult: Dispensary Clerk / Pulmonary Medicine Routine Consulting Provider: Pulmonary Medicine emerson Eliud Reason for Consult: refractory pneumonia with acute on chronic respiratory failure EMERGENT Consult: No MD Notified: Yes Date Notified: 09/21/21 Time Notified: 17:02 Method of Notification: Text Reason For Visit: ACUTE ON CHRONIC [id number] RESPIRATORY FAILURE Diagnosis Discharge Diagnosis (1) Respiratory failure, [id number]: Status: Chronic Code(s): J96.20 - Acute and chronic respiratory failure, unspecified whether with hypoxia or hypercapnia Medications at Discharge Home Medications atenolol 25 mg PO DAILY 07/31/21 lisinopril 10 mg PO DAILY 07/31/21 tamsulosin 0.4 mg PO DAILY 07/31/21 aspirin 81 mg PO DAILY 08/01/21 sildenafil 100 mg PO PRN PRN 08/19/21 cetirizine 10 mg capsule 10 mg PO DAILY PRN 09/12/21 fluticasone propionate 50 mcg/actuation nasal spray,suspension 1 spray INTRANASAL DAILY PRN 09/12/21 Probiotic 3,000 mmu cells PO DAILY 09/17/21 multivitamin 1 cap PO DAILY 09/17/21 Handicap Placcard #1 ea 09/24/21 prednisone 40 mg PO DAILY #90 tab 09/25/21 Hospital Course Operations None Procedures None Summary of Care Provided Minutes Spent on Discharge: 40 Hospital Course: Per HPI: JHOANA SPARKS is a 70 M with an extensive PMH as outlined who presents with a complaint of shortness of breath. Patient has been treated for pneumonia refractory to treatment over the last month and was discharged home on oxygen ~ 1 month ago. He had a bronch 2 days ago, which labs are still pending. He said his oxygen sats went down into the 60s and 70s with just changing position; his oxygen requirements went up to 6L, from 2L. He denies any fever or chills, and denies any cough. REview of systems is otherwise negative. CXR showed bilateral pneumonia. EKG showed no acute ST changes and CBC showed wbc of 15.9, with Hb of 12.4 and plaelets of 634; he has chronically elevated platelets. BMP was also unremarkable. ED discussed patient with his chief environmental commitment officer recommended that patient be started on IV Solu-Medrol 40 mg twice daily due to concerns about possible cryptogenic pneumonia. Hospital Course: Acute on chronic hypoxic respiratory failure Thought to be due to cryptogenic pneumonia. Patient has had a course of pneumonia over the last few weeks refractory to treatment. He had a bronchoscopy several days ago results of which are still pending. Titrate oxygen to maintain saturation above 90%. Breathing treatments of bronchodilators. Per recommendation of chief environmental commitment officer, start on IV Solu-Medrol 40 mg twice daily Consult pulmonology, appreciate recommendations Breathing treatments with bronchodilators. Ambulatory pulse ox today demonstrated the need for 8 L of oxygen to maintain oxygen saturation of 90% 09/25/2021: Today he was able to ambulate on 4 L of oxygen to maintain his sats at 90%. I discussed with him the possibility for discharge today and he express ed understanding of the risk benefits of going home today and would like to go home today. He will need to be on 40 mg of prednisone daily for the next 2 weeks until he follows up with his chief environmental commitment officer at which point, he will likely be tapered down. I did give him 90 tablets to assist with this tapering. I also recommended he follow-up with his PCP in 3 to 5 days after discharge. Given the fact that is a cryptogenic pneumonia will not need any antibiotics on discharge, BALs did not show any cellularity or organisms. #Thrombocytosis: chronic. Will monitor #Hypertension: On atenolol and lisinopril Blood pressures are stable continue to monitor Physical Exam Const alert, oriented x3 and no apparent distress General Appearance: cooperative HEENT normocephalic and moist oral mucous membranes Eyes PERRL, EOMs intact bilaterally and conjunctivae normal Neck supple and no JVD Resp normal respiratory effort, no retractions and no use of accessory muscles Auscultation: rales; Negative for crackles, rhonchi or wheezes Cardio regular rate, regular rhythm, S1 normal heart sound, S2 normal heart sound and no murmurs GI soft to palpation, non-tender and non-distended; Negative for hepatosplenomegaly Extremity no clubbing, cyanosis or edema Skin no rashes or lesions noted Neuro no focal motor deficits and no sensory deficits noted Psych affect normal Appearance: appropriate Medical Records Data Medical Nutrition Assessment Dietitian: Malnutrition Criteria Met Start: 09/21/21 16:14 Freq: Status: Active Protocol: Document 09/21/21 16:14 RMA (Rec: 09/21/21 16:14 RMA [id number]) Nutrition Malnutrition Evidence of Malnutrition Exists Yes Malnutrition (severe): Acute Illness/Injury Evidenced By Suboptimal Energy Intake ( Severe),Weight Loss (Severe) Clinical Problem Acute Disease or Injury Related Malnutrition Etiology Severe protein/calorie malnutrition in the context of acute illness related to increased energy expenditure and inadequate oral intake Signs/Symptoms as evidenced by PO meeting less than 50-75% estimated nutrition needs and wt loss ~4 % x past 1 month and wt loss~9 -10% x past 2 months. Status Active Problem Recommendation Dietitian Recommendations/Changes Continue cardiac diet as ordered. Will add Ensure Compact TID w/ meals for an additional 660 kcal and 27 gm pro if consumed . Will adjust diet and ONS as needed to optimize nutrition and prevent further wt loss. Weight / BMI Weight Weight: 168 lb 3.403 oz Body Mass Index (BMI) 24.8 ABG / Lab / Microbiology Data Result Diagrams: 09/24/21 05:35 09/25/21 06:06 Laboratory: Laboratory Results - last 24 hr 09/25/21 06:06: Sodium 136, Potassium 4.6, Chloride 100, Carbon Dioxide 30.0, Anion Gap 6, BUN 21 H, Creatinine 0.81, Estim Creat Clear Calc 82.43, Est GFR (MDRD) Af Amer 121, Est GFR (MDRD) Non-Af 100, BUN/Creatinine Ratio 26.0 H, Glucose 124 H, Calcium 9.1 Microbiology: Microbiology 09/21/21 08:50 Blood Culture (Wb) #2 - Anticubital Left Blood Culture - Preliminary No growth in 48 hours. 09/21/21 09:00 Blood Culture (Wb) - Right Forearm Blood Culture - Preliminary No growth in 48 hours. 09/21/21 08:56 Mucosa - Nasopharyngeal Influenza Types A,B Direct FA (CATHY) - Final 09/21/21 08:46 Nasal Secretion SARS-CoV-2 Antigen (Rapid) - Final D/C Instructions Discharge Diet: Low fat / Low cholesterol Call your doctor if you observe: Fever of 101 or Higher, Shortness of breath, Dizziness, Fainting spells, Swelling in the ankles, Chest pain and Increased palpitations (irregular heartbeat) Meaningful Use Info Meaningful Use Diagnoses (Choose all that apply): None applicable Discharge Plan Admission Admit Date/Time: 09/21/21 10:48 Attending Provider: Aubrey Shah Primary Care Provider: Teetee Mcdowell Consulting Providers: Ron Clements ; Darius Mosqueda ; Zaynab Arteaga MANAGEMENT ACCOUNTS MANAGER Discharge Orders/Prescriptions Prescriptions: New prednisone 10 mg tablet 40 mg PO DAILY Qty: 90 RF: 0 Continued fluticasone propionate 50 mcg/actuation spray,suspension 1 spray intranasal DAILY PRN (Reason: allergies) RF: 0 Zyrtec 10 mg capsule 10 mg PO DAILY PRN (Reason: ALLERGIES) RF: 0 atenolol 25 mg Tablet 25 mg PO DAILY RF: 0 tamsulosin 0.4 mg Capsule 0.4 mg PO DAILY RF: 0 lisinopril 10 mg Tablet 10 mg PO DAILY RF: 0 aspirin 81 mg Tablet,Delayed Release (Dr/Ec) 81 mg PO DAILY RF: 0 sildenafil 100 mg tablet 100 mg PO PRN PRN (Reason: Erectile Dysfunction) RF: 0 multivitamin Capsule 1 cap PO DAILY RF: 0 Probiotic 3 billion cell Capsule 3,000 mmu cells PO DAILY RF: 0 (DME) Handicap Placcard See Rx Instructions .ROUTE .MEDSUPPLY Qty: 1 RF: 0 Referrals / Follow Up: Ron Clements MD [STAFF PHYSICIAN] - Within 2 Weeks Teetee Mcdowell MD [Primary Care Provider] - Within 1 Week Disposition Disposition (needs filled in before D/C Order can be placed): Home, Self Care Charges/Coding Visit Charges Inpatient E&M: 41781 Disch Hosp
== END 2021-09-25 13:23 | disposition home or self-care (01) | DRG 196 ==
LOC: ED 10:23 → PCU 11:01
PROVIDERS: Internal Medicine Critical Care Medicine; Admitting Provider Student in an Organized Health Care Education/Training Program; Emergency Provider Emergency Medicine; PCP Internal Medicine; Visit Provider Family Medicine
DX: J84.116 Cryptogenic organizing pneumonia (principal); J96.21 Acute and chronic respiratory failure with hypoxia; E43 Unspecified severe protein-calorie malnutrition; Z68.24 Body mass index [BMI] 24.0-24.9, adult; Z20.822 Contact with and (suspected) exposure to COVID-19; I10 Essential (primary) hypertension; E78.5 Hyperlipidemia, unspecified; D75.839 Thrombocytosis, unspecified; Z99.81 Dependence on supplemental oxygen; Z79.899 Other long term (current) drug therapy; Z79.82 Long term (current) use of aspirin; Z87.01 Personal history of pneumonia (recurrent)
CPT/HCPCS: 36415; 71045; 80048; 83605; 83880; 84145; 84484; 85025; 87015; 87040; 87070; 87116; 87205; 87206; 87252; 87426; 87804; 88108; 88305; 88312; 88313; 89050; 93005; 97110; 97161; 97165; 97530; 97535; 97802; 99251; 99285; J7120; A4216; G0463; J1940; J2405

== ENCOUNTER 2021-10-24 13:18 | Outpatient (CLI) | payer MEDICARE, OTHER, SELFPAY ==
[2021-10-24 13:52] VITALS: PULSE 80; PULSE 88; PULSE 89; PULSE 94; PULSE 95; PULSE 96; O2SAT 92; O2SAT 93; O2SAT 94
--- NOTE | 2021-10-24 17:03 | PCM.PSN.6M ---
PSN 6 Minute Walk Test 6 Minute Walk Test 6 Minute Walk Test: 6 Minute Walk Test PSN:6-Minute Walk Test Start: 10/24/21 13:52 Freq: Status: Active Protocol: RESP.6MINW Document 10/24/21 13:52 GÓMEZ (Rec: 10/24/21 13:55 GÓMEZ [id number]) 6 Minute Walk Test Date Performed 10/24/21 Time Performed 13:30 Height 5 ft 9 in Weight: 79.379 kg Weight in Pounds 175.[address]: Darius Mosqueda Assistive device used: None Pre-test Oxygen Delivery Method Room Air Pulse Ox (%) 94 Pulse Rate (60-100 beats/min) 88 Dyspnea Onel Scale (0-10) 0.5 Exertion Onel Scale (6-20) 6 1st minute Oxygen Delivery Method Room Air Pulse Ox (%) 92 Pulse Rate (60-100 beats/min) 89 2nd minute Oxygen Delivery Method Room Air Pulse Ox (%) 93 Pulse Rate (60-100 beats/min) 94 3rd minute Oxygen Delivery Method Room Air Pulse Ox (%) 92 Pulse Rate (60-100 beats/min) 95 4th minute Oxygen Delivery Method Room Air Pulse Ox (%) 93 Pulse Rate (60-100 beats/min) 95 5th minute Oxygen Delivery Method Room Air Pulse Ox (%) 92 Pulse Rate (60-100 beats/min) 96 6th minute Oxygen Delivery Method Room Air Pulse Ox (%) 92 Pulse Rate (60-100 beats/min) 95 Dyspnea Onel Scale (0-10) 3 Exertion Onel Scale (6-20) 11 Post-test Oxygen Delivery Method Room Air Pulse Ox (%) 94 Pulse Rate (60-100 beats/min) 80 Full Laps Walked 11 Partial Lap, Number of Tiles Walked 15 Total Distance Walked (ft) 664 Interpretation Interpretation: Patient was able to ambulate only 664 feet over the course of 6 minutes on room air with no assistive devices or breaks. The patient experienced no significant desaturation or tachycardia during testing. These findings are consistent with a musculoskeletal limitation in exercise tolerance. Recommendations Recommendations: No supplemental oxygen is indicated at this time.
== END 2021-10-24 23:59 | disposition short-term general hospital (02) ==
LOC: PSN 13:20
PROVIDERS: PCP Internal Medicine; Referring Provider Internal Medicine Critical Care Medicine; Visit Provider Internal Medicine Critical Care Medicine
DX: J84.116 Cryptogenic organizing pneumonia (principal)
CPT/HCPCS: 94618

== ENCOUNTER → 2022-03-19 | Outpatient (CLI) | payer MEDICARE, OTHER, SELFPAY ==
[2022-03-19 12:30] VITALS: PULSE 75; PULSE 83; PULSE 90; PULSE 91; PULSE 93; PULSE 94; PULSE 95; O2SAT 91; O2SAT 92; O2SAT 94
--- NOTE | 2022-03-20 08:54 | PCM.PSN.6M ---
PSN 6 Minute Walk Test 6 Minute Walk Test 6 Minute Walk Test: 6 Minute Walk Test PSN:6-Minute Walk Test Start: 03/19/22 12:55 Freq: Status: Active Protocol: RESP.6MINW Document 03/19/22 12:30 EW (Rec: 03/19/22 13:00 EW [id number]) 6 Minute Walk Test Date Performed 03/19/22 Time Performed 12:30 Height 5 ft 9 in Weight: 188 lb Weight in Pounds 188.[address]: Darius Mosqueda Assistive device used: None Pre-test Oxygen Delivery Method Room Air Pulse Ox (%) 94 Pulse Rate (60-100 beats/min) 75 Dyspnea Onel Scale (0-10) 1 Exertion Onel Scale (6-20) 6 1st minute Oxygen Delivery Method Room Air Pulse Ox (%) 91 Pulse Rate (60-100 beats/min) 90 2nd minute Oxygen Delivery Method Room Air Pulse Ox (%) 91 Pulse Rate (60-100 beats/min) 95 3rd minute Oxygen Delivery Method Room Air Pulse Ox (%) 92 Pulse Rate (60-100 beats/min) 93 4th minute Oxygen Delivery Method Room Air Pulse Ox (%) 91 Pulse Rate (60-100 beats/min) 90 5th minute Oxygen Delivery Method Room Air Pulse Ox (%) 91 Pulse Rate (60-100 beats/min) 91 6th minute Oxygen Delivery Method Room Air Pulse Ox (%) 92 Pulse Rate (60-100 beats/min) 94 Post-test Oxygen Delivery Method Room Air Pulse Ox (%) 92 Pulse Rate (60-100 beats/min) 83 Dyspnea Onel Scale (0-10) 2 Exertion Onel Scale (6-20) 11 Full Laps Walked 19 Partial Lap, Number of Tiles Walked 0 Total Distance Walked (ft) 1121 Interpretation Interpretation: The patient ambulated 1121 feet over the course of 6 minutes beginning on room air without assistive devices. Pretesting oxygen saturation was noted to be 94% on room air. With ambulation, the martina oxygen saturation was 91%. There was no significant exertional oxygen desaturation. Recommendations Recommendations: There is no indication for the use of supplemental oxygen at this time.
== END | disposition home or self-care (01) ==
LOC: PSN 12:33
PROVIDERS: PCP Internal Medicine; Referring Provider Internal Medicine Critical Care Medicine; Visit Provider Internal Medicine Critical Care Medicine
DX: J84.116 Cryptogenic organizing pneumonia (principal)
CPT/HCPCS: 94618

== ENCOUNTER → 2022-04-08 | Outpatient (CLI) | payer MEDICARE, OTHER, SELFPAY ==
--- NOTE | 2022-04-08 09:24 | RAD_ITS ---
STUDY: X-RAY CHEST REASON FOR EXAM: Male, 71 years old. Chest pain/pressure TECHNIQUE: PA and lateral views of the chest. COMPARISON: 09/21/2021 FINDINGS: Lungs are mildly hyperexpanded with diffuse airspace opacifications in both lung avitia particularly the lung bases. No demonstrated effusions. Pattern of opacification can be seen with multifocal pneumonitis, bilateral infiltrates or Covid pneumonia. Normal size heart. Normal mediastinum and kulwant. Normal visualized pulmonary arteries. Normal visualized aortic arch and descending thoracic aorta. Normal visualized thoracic spine. Normal visualized ribs, clavicles, and shoulders. There is no demonstrated abnormality of the visualized soft tissue structures of the upper abdomen. RAD/Chest PA and Lateral IMPRESSION: Mildly hyperexpanded lungs with diffuse opacifications in both mid and lower lung avitia, differential as described above. Follow-up recommended to assure complete resolution Electronically Signed: Denny Land MD at 11:10 EDT ,
== END | disposition home or self-care (01) ==
LOC: RAD 09:24
PROVIDERS: PCP Internal Medicine; Referring Provider Internal Medicine Critical Care Medicine; Visit Provider Internal Medicine Critical Care Medicine
DX: J84.116 Cryptogenic organizing pneumonia (principal); R07.89 Other chest pain
CPT/HCPCS: 71046

== ENCOUNTER → 2022-04-09 | Outpatient (CLI) | payer MEDICARE, OTHER, SELFPAY ==
--- NOTE | 2022-04-09 10:06 | CT_ITS ---
STUDY: CT CHEST WITHOUT CONTRAST REASON FOR EXAM: Male, 71 years old. ? Recurrent cryptogenic organizing pneumonia RADIATION DOSAGE (If Supplied By Facility): CTDIvol = ( 14.23 ) mGy, DLP = ( 492.58 ) mGycm TECHNIQUE: Transaxial imaging was performed without the administration of intravenous contrast material. Multiplanar coronal and sagittal images were reformatted. Individualized dose optimization techniques were used for this CT. COMPARISON: Comparison is made with prior study dated 09/12/2021. FINDINGS: CHEST New focal infiltrate in the anterior aspect of the right middle lobe. There has been improvement in the previously seen infiltrate in the posterior aspect of the right upper lobe. Minimal residual changes seen in the posterior aspect of the superior segment of the left lower lobe. New focal infiltrate is seen in the anterior lateral aspect of the left upper lobe. There has been progressive airspace disease in both lower lobes as well as the posterior aspect of the right middle lobe and lingula segment of the left upper lobe. Tiny bilateral pleural effusions. Small anterior pericardial effusion. There are calcifications of the coronary arteries. There are multiple small lymph nodes within the mediastinum, which are normal in size and morphology most compatible with reactive lymph hyperplasia. Normal hilar regions. Normal unenhanced pulmonary arteries. Normal aorta arch and descending thoracic aorta. There are degenerative changes of the thoracic spine. There is no demonstrated abnormality of the visualized upper abdomen. CT/Chest without Contrast IMPRESSION: Progressive airspace disease in the lower lobes as well as in the right middle lobe and lingular segment of the left upper lobe. There is been improvement in aeration in the posterior aspect of the right upper lobe. Electronically Signed: Andriy Hernandez MD at 10:46 EDT ,
== END | disposition home or self-care (01) ==
LOC: CT 10:03
PROVIDERS: PCP Internal Medicine; Referring Provider Internal Medicine Critical Care Medicine; Visit Provider Internal Medicine Critical Care Medicine
DX: I25.10 Atherosclerotic heart disease of native coronary artery without angina pectoris (principal); J84.116 Cryptogenic organizing pneumonia; J90 Pleural effusion, not elsewhere classified; I31.3 Pericardial effusion (noninflammatory)
CPT/HCPCS: 71250

== ENCOUNTER → 2022-04-10 | Outpatient (CLI) | payer MEDICARE, OTHER, SELFPAY ==
[2022-04-10 10:49] LABS: Absolute Lymphocyte Count 0.91 X10^3/uL (0.83-4.51); Absolute Neutrophil Count 9.1 X10^3/uL (2.0-7.7); Basophil# 0.06 X10^3/uL; Basophil% 0.5 % (0-1); Eosinophil# 0.41 X10^3/uL; Eosinophils% 3.5 % (0-5); Hematocrit 40.6 % (40-54); Hemoglobin 13.5 g/dL (13.0-16.5); Lymphocyte # 0.91 X10^3/ul (0.83-4.51); Lymphocyte % 7.7 % (19-41); Mean Corp Hgb Conc 33.3 g/dL (32-36); Mean Corpuscular Hgb 30.4 pg (27.0-32.0); Mean Corpuscular Volume 91.4 fL (80-94); Mean Platelet Vol. 8.8 fl (6.2-12.0); Monocyte# 1.26 X10^3/uL; Monocyte% 10.6 % (0-10); NRBC Flagged by Analyzer 0 % (0-5); Neutrophil # 9.12 X10^3/uL (2.7-7.7); Neutrophil % 76.9 % (47-70); Platelet Count 560 K/mm3 (150-450); RBC Distribution Width CV 11.9 % (11.6-14.6); RBC Distribution Width SD 40.1 fl (35.1-43.9); Red Blood Count 4.44 M/mm3 (4.6-6.2); White Blood Count 11.9 K/mm3 (4.4-11.0)
[2022-04-10 11:23] LABS: AST(SGOT) 15 U/L (15-37); Alanine Aminotransfer ALT/SGPT 23 U/L (16-61); Albumin, Serum 2.8 g/dL (3.2-5.0); Alkaline Phosphatase 88 U/L (45-117); Bilirubin, Direct 0.12 mg/dL (0.00-0.30); Globulin 4.1 g/dL (2.2-4.2); Protein, Total 6.9 g/dL (6.4-8.2)
[2022-04-14 01:06] LABS: Cytoplasmic Ab (C-ANCA) <1:20 titer (Neg:<1:20)
[2022-04-14 13:20] LABS: Immunoglobulin E 7 IU/mL (6-495); Perinuclear Ab (P-ANCA) <1:20 titer (Neg:<1:20)
== END | disposition home or self-care (01) ==
PROVIDERS: PCP Internal Medicine; Referring Provider Nurse Practitioner Acute Care; Visit Provider Nurse Practitioner Acute Care
DX: R05.9 Cough, unspecified (principal); J96.01 Acute respiratory failure with hypoxia
CPT/HCPCS: 36415; 80076; 82785; 85025; 86256

== ENCOUNTER 2022-04-16 11:01 | Day surgery (SDC) | payer MEDICARE, OTHER, SELFPAY ==
--- NOTE | 2022-04-15 10:22 | HP.PCM_ITS ---
HPI - General HPI Narrative The patient is a 71-year-old male with a history of recurrent cryptogenic organizing pneumonia. The patient was admitted to the hospital from August 19-2020 with respiratory failure due to pneumonia.? The patient was maintained on IV antimicrobials.? Infectious work-up was unrevealing.? The patient was discharged home ultimately on supplemental oxygen.? Prior to this, in July 2021, the patient was admitted to the hospital overnight under similar circumstances and discharged home on Levaquin.? He was treated with multiple courses of antibiotics without any significant symptom improvement. Prior to his illness in July, the patient was a very active individual.? The patient was previously e mployed working for a [employer] company but spent all of his time within the confines of an office.? He is a lifelong non-smoker.? He does report limited secondhand smoke exposure.? He did not grow up in a smoking household.? He does not currently have any pets within his home environment.? Repeat CTA chest completed on September 12, 2021 demonstrated no evidence for PE.? However, there was persistent multifocal infiltrates bilaterally.? Autoimmune work-up was negative.? Aspergillus antibodies were negative. The patient underwent a bronchoscopy procedure in mid September with bilateral BAL was completed.? The patient was then admitted to the hospital on September 22, 2021 with worsening dyspnea and hypoxemia.? He was placed on steroids at that time over concerns for potential cryptogenic organizing pneumonia.? He was discharged home on September 25.? The patient's respiratory symptoms improved on corticosteroid therapy.? However, approximately 1 week after discontinuing his prednisone taper symptoms relapsed and he developed worsening shortness of breath.? At that particular time, the patient was vacationing in [place] and was evaluated by a local motor driver there.? A repeat CT chest without contrast from November 2021 demonstrated patchy groundglass opacities, most pronounced on the left hemithorax.? The patient was once again placed back on prednisone.? The patient completed his prednisone taper again at the end of March 2022. His symptoms once again relapsed following completion of the prednisone taper. Repeat CT chest from April demonstrated progressive airspace disease, primarily within the lower lobes bilaterally. [facility] Medical History (Updated 04/11/22 @ 14:04 by Carolyn Vides) Acute respiratory failure with hypoxia History of steroid therapy HLD (hyperlipidemia) Hypertension Hypoxia Non-smoker Pleural effusion, right Pneumonia Prostate disease Shortness of breath on exertion Home Medications atenolol 25 mg tablet 25 mg PO DAILY blood pressure 07/31/21 [History Last Taken 09/21/21] lisinopril 10 mg tablet 10 mg PO DAILY blood pressure 07/31/21 [History Last Taken 09/21/21] tamsulosin 0.4 mg capsule 0.4 mg PO QHS prostate 07/31/21 [History Last Taken 09/20/21] aspirin 81 mg tablet,delayed release 81 mg PO DAILY HEART HEALTH 08/01/21 [History Last Taken 09/21/21] sildenafil 100 mg tablet 100 mg PO PRN PRN Erectile Dysfunction 08/19/21 [History Last Taken Unknown] cetirizine 10 mg capsule (Zyrtec) 10 mg PO DAILY PRN ALLERGIES 09/12/21 [History Last Taken Unknown] fluticasone propionate 50 mcg/actuation nasal spray,suspension 1 spray intranasal DAILY PRN allergies 09/12/21 [History Last Taken Unknown] lactobacillus combination no.4 3 billion cell capsule (Probiotic) 3,000 mmu cells PO DAILY probiotic 09/17/21 [History Last Taken 09/20/21] multivitamin 1 cap PO DAILY vitamin 09/17/21 [History Last Taken 09/20/21] Handicap Placcard #1 ea 09/24/21 [Rx Last Taken Unknown] Allergy/AdvReac Type Severity Reaction Status Date / Time No Known Allergies Allergy Verified 04/11/22 13:54 Family History Other Dementia Surgical History (Updated 04/11/22 @ 14:04 by Carolyn Vides) History of bronchoscopy History of kidney surgery Hx of foot surgery Hx of left cataract extraction Hx of right cataract extraction Social History household members: spouse housing: house pets and animals: No history of recent travel: No Smoking Status: Never smoker substance use type: does not use what type of physical activity do you participate in: walking and bicycling ROS ROS Narrative As per HPI above. Physical Exam Const alert, no apparent distress and well nourished HEENT normocephalic and head/scalp atraumatic Eyes PERRL and EOMs intact bilaterally Neck supple General: trachea midline Resp normal respiratory effort Auscultation: rales Cardio regular rate and regular rhythm GI normal to inspection, nondistended, normoactive bowel sounds Extremity no clubbing, cyanosis or edema Skin General Skin Exam: no breakdown Neuro CN's II-XII intact bilaterally and no focal motor deficits Psych cooperative and affect normal Appearance: appropriate Assessment & Plan Assessment/Plan (1) Cryptogenic organizing pneumonia: PLAN: Upon completion of his most recent steroid taper, the patient once again relapse from a symptom standpoint. His CT imaging from early April demonstrated progressive lower lobe predominant airspace disease. These findings are concerning for relapsed organizing pneumonia. Prior to initiating the patient on any form of further immunotherapy, I would first like to perform a bronchoscopy with BAL to rule out any form of an occult infection. The patient is in agreement to proceed. Once an infectious etiology has been definitively ruled out, consideration can be given to further immunotherapy, either with prednisone or Imuran.
[2022-04-16] VITALS (9 sets, daily range): BP systolic 112–149; BP diastolic 73–81; PULSE 61–80; RESP 16; TEMP 36.7–37.9; O2SAT 92–100; BMI 27.4
[2022-04-16] MEDS: Lactated Ringers 1,000 ML 15 ML IV (11:25)
[2022-04-16] MEDS: Lidocaine 2% (5ml sdv) 5 ML VIAL.MPF (12:15)
[2022-04-16] MEDS: Lidocaine 2% Jelly 1 APPLIC Tube (12:15)
--- NOTE | 2022-04-16 12:41 | OP.BRONCH_ITS ---
Patient Name: Omid Poe Procedure Date: 04/16/2022 12:13 PM Date of : 1950 Age: 71 Procedure: Bronchoscopy Indications: Abnormal CT scan of chest Providers: Darius Mosqueda MD Medicines: See the Anesthesia note for documentation of the administered medications Complications: No immediate complications Procedure: Pre-Anesthesia Assessment: - A History and Physical has been performed. Patient meds and allergies have been reviewed. The risks and benefits of the procedure and the sedation options and risks were discussed with the patient. All questions were answered and informed consent was obtained. Patient identification and proposed procedure were verified prior to the procedure by the physician and the nurse in the procedure room. Mental Status Examination: alert and oriented. Airway Examination: normal oropharyngeal airway. Respiratory Examination: bibasilar crackles. CV Examination: normal. ASA Grade Assessment: II - A patient with mild systemic disease. After reviewing the risks and benefits, the patient was deemed in satisfactory condition to undergo the procedure. The anesthesia plan was to use monitored anesthesia care (MAC). Immediately prior to administration of medications, the patient was re-assessed for adequacy to receive sedatives. The heart rate, respiratory rate, oxygen saturations, blood pressure, adequacy of pulmonary ventilation, and response to care were monitored throughout the procedure. The physical status of the patient was re-assessed after the procedure. After I obtained informed consent, the scope was passed under direct vision. Throughout the procedure, the patient's blood pressure, pulse, and oxygen saturations were monitored continuously. The bronchoscope was introduced through the mouth and advanced to the tracheobronchial tree. The procedure was accomplished without difficulty. The patient tolerated the procedure well. Findings: The oropharynx appears normal. The larynx appears normal. The vocal cords appear normal. The subglottic space is normal. The trachea is of normal caliber. The shanique is sharp. The tracheobronchial tree of the right lung was examined to at least the first subsegmental level. Bronchial mucosa and anatomy in the right lung are normal; there are no endobronchial lesions, and no secretions. Left Lung Abnormalities: Erythema was found in the left mainstem bronchus. BAL was performed in the left lower lobe of the lung and sent for cell count, bacterial culture, viral smears & culture, and fungal & AFB analysis and cytology. 80 mL of fluid were instilled. 30 mL were returned. The return was cloudy. There were no mucoid plugs in the return fluid. BAL was performed in the right lower lobe of the lung and sent for cell count, bacterial culture, viral smears & culture, and fungal & AFB analysis and cytology. 80 mL of fluid were instilled. 30 mL were returned. The return was cloudy. There were no mucoid plugs in the return fluid. Impression: - Abnormal CT scan of chest - The airway examination of the right lung was normal. - Erythema was present in the left mainstem bronchus. - Bronchoalveolar lavage was performed in the left lower lobe. - Bronchoalveolar lavage was performed in the right lower lobe. Recommendation: - Await BAL results. Procedure Code(s): --- Professional --- 87548, Bronchoscopy, rigid or flexible, including fluoroscopic guidance, when performed; with bronchial alveolar lavage 29759, Bronchoscopy, rigid or flexible, including fluoroscopic guidance, when performed; with bronchial alveolar lavage Diagnosis Code(s): --- Professional --- R09.89, Other specified symptoms and signs involving the circulatory and respiratory systems R93.8, Abnormal findings on diagnostic imaging of other specified body structures CPT copyright 2017 [employer]. All rights reserved. The codes documented in this report are preliminary and upon medical biller/coder review may be revised to meet current compliance requirements. DO Darius Young MD 04/16/2022 12:40:47 PM This report has been signed electronically. Number of Addenda: 0 Note Initiated On: 04/16/2022 12:13 PM
--- NOTE | 2022-04-16 12:50 | FLU_PTH ---
PATIENT: JHOANA SPARKS LOC: EN U#:[id number] AGE/SX: 71/M ROOM: RE04/16/[address]: Dr. Darius Mosqueda DO : 1950 BED: DIS: 04/16/2022 SPEC #: [id number] RECD: 04/17/22 07:13 STATUS: OVIDIO REQ #: [id number] KEYON: 04/16/22 12:[address]: Darius Mosqueda DEPT: CYTOLOGY RECD BY: Kristin Espinoza ENTERED: 04/17/22 07:14 SP TYPE: Fluid OTHR DR: Dr. Teetee Mcdowell MD Tissues: A - Bronchus of left lower lobe B - Bronchus of right lower lobe Procedures: PC (control) Special Stain Group II Special Stain Group I Surgery Specimen Level IV AFB Stain (control) GMS Stain (control) Cytospin Fluid HEADER OPERATION: Bronchoscopy with BAL PRE-OP DIAGNOSIS: Recurrent organizing pneumonia TISSUE SUBMITTED: A ? BAL LLL, B ? BAL RLL DIAGNOSIS CYTOLOGY A. Bronchioalveolar lavage, left lower lobe of lung (cytospin and cell block): Negative for malignant cells. Fungal budding forms are present. Negative for pneumocystis carinii. Negative for acid fast bacilli. See comment. B. Bronchioalveolar lavage, right lower lobe of lung (cytospin and cell block): Negative for malignant cells. Fungal budding forms are present. Negative for pneumocystis carinii. Negative for acid fast bacilli. See comment. AM:volodymyr 04/18/2022 COMMENT A & B. AFB, PC and GMS stains with matched controls were used in the evaluation of this case. Reference is made to the patient's bronchioalveolar fluid from 2020 ([id number]) in which budding yeast forms and fungal hyphae of uncertain type were identified. CYTOLOGY STUDY Slides are reviewed. CYTOLOGY GROSS A - Received is 12 ml of cloudy opaque fluid with particles labeled with the patient's name and and designated per the requisition as BAL LLL. Submitted for cytology preparation including cell block. B - Received is 15 ml of cloudy opaque fluid with particles labeled with the patient's name and and designated per the requisition as BAL RLL. Submitted for cytology preparation including cell block. / volodymyr 04/17/2022 TC:5 CPT: 13623 x2, 97884 x2, 55456 x6
[2022-04-16 13:02] LABS: Cytology, Body Fluid / CSF SEE PATHOLOGY REPORT
[2022-04-16 13:04] LABS: Cytology, Body Fluid / CSF SEE PATHOLOGY REPORT
[2022-04-16 14:02] LABS: Appearance/Body Fluid CLEAR; Color/Body Fluid COLORLESS; Source- Body Fluid BRONCHIAL LAVAGE
[2022-04-16 14:03] LABS: Appearance/Body Fluid CLEAR; Color/Body Fluid COLORLESS; Source- Body Fluid BRONCHIAL LAVAGE
[2022-04-16 14:16] LABS: Red Cell Count/Body Fluid 63 /mm3; White Blood Count/Body Fluid 72 /mm3
[2022-04-16 14:25] LABS: Red Cell Count/Body Fluid 108 /mm3; White Blood Count/Body Fluid 98 /mm3
[2022-04-16 14:38] LABS: Lymphocytes 22 %; Monocytes 4 %; Neutrophil (Segs) 17 %; Other Cell Type/BF 57 %
[2022-04-16 14:39] LABS: Body Fluid QC Type(s) BF1Q,BF2Q,BF3Q
[2022-04-16 14:45] LABS: Lymphocytes 13 %; Neutrophil (Segs) 12 %; Other Cell Type/BF 75 %
[2022-04-16 14:47] LABS: Body Fluid QC Type(s) BF1Q,BF2Q,BF3Q
[2022-04-17 12:18] LABS: Pathologist Comment/Body Fluid Reviewed
[2022-04-17 12:18] LABS: Pathologist Comment/Body Fluid Reviewed
== END 2022-04-16 14:19 | disposition home or self-care (01) ==
LOC: EN 11:04 → AC 11:05
PROVIDERS: PCP Internal Medicine; Referring Provider Internal Medicine; Visit Provider Internal Medicine Critical Care Medicine
PROC: 0BJ08ZZ Inspection of Tracheobronchial Tree, Via Natural or Artificial Opening Endoscopic (ICD-10-PCS; CPT 31622; principal; 2022-04-16 11:45)
DX: R09.89 Other specified symptoms and signs involving the circulatory and respiratory systems (principal); J98.4 Other disorders of lung; R93.89 Abnormal findings on diagnostic imaging of other specified body structures; I10 Essential (primary) hypertension; E78.5 Hyperlipidemia, unspecified; Z79.82 Long term (current) use of aspirin; Z79.899 Other long term (current) drug therapy
CPT/HCPCS: 31624; 87015; 87070; 87077; 87101; 87106; 87116; 87205; 87206; 87252; 88108; 88305; 88312; 88313; 89050; J7120; J2405

== ENCOUNTER → 2022-04-21 | Outpatient (CLI) | payer MEDICARE, OTHER, SELFPAY ==
[2022-04-21 14:19] LABS: AST(SGOT) 21 U/L (15-37); Alanine Aminotransfer ALT/SGPT 41 U/L (16-61); Albumin, Serum 2.8 g/dL (3.2-5.0); Alkaline Phosphatase 87 U/L (45-117); Bilirubin, Direct 0.13 mg/dL (0.00-0.30); Globulin 3.8 g/dL (2.2-4.2); Protein, Total 6.6 g/dL (6.4-8.2)
[2022-04-25 17:07] LABS: Aspirgillus flavus Negative (Neg:<1:1); Aspirgillus fumigatus Negative (Neg:<1:1)
[2022-04-25 22:07] LABS: Aspirgillus niger Negative (Neg:<1:1)
== END | disposition home or self-care (01) ==
LOC: PAVLAB 13:07
PROVIDERS: PCP Internal Medicine; Referring Provider Internal Medicine Critical Care Medicine; Visit Provider Internal Medicine Critical Care Medicine
DX: R93.89 Abnormal findings on diagnostic imaging of other specified body structures (principal)
CPT/HCPCS: 36415; 80076; 86606

== ENCOUNTER → 2022-04-30 | Outpatient (CLI) | payer MEDICARE, OTHER, SELFPAY ==
[2022-05-05 21:00] LABS: URINE HISTOPLASMA ANTIGEN <0.5 (<0.5 ng/mL)
== END | disposition home or self-care (01) ==
LOC: LAB 15:52
PROVIDERS: PCP Internal Medicine; Visit Provider Internal Medicine Critical Care Medicine
DX: R93.89 Abnormal findings on diagnostic imaging of other specified body structures (principal)
CPT/HCPCS: 36415; 87385

== ENCOUNTER → 2022-06-10 | Outpatient (CLI) | payer MEDICARE, OTHER, SELFPAY ==
--- NOTE | 2022-06-10 12:14 | RAD_ITS ---
EXAM: XR CHEST, 2 VIEWS CLINICAL INDICATION: h/o organizing pneumonia TECHNIQUE: Frontal and lateral views of the chest. This report was created using [employer] report generation technology. COMPARISON: 09/21/2021 FINDINGS: LUNGS AND PLEURAL SPACES: Mild bibasilar scarring/atelectasis. No pneumothorax. No effusion. HEART: Unremarkable. Cardiac silhouette not enlarged. MEDIASTINUM: Central airways and mediastinal contour are unremarkable. BONES/JOINTS: Unremarkable. SOFT TISSUES: Unremarkable. RAD/Chest PA and Lateral IMPRESSION: No acute findings in the chest. Mild bibasilar scarring/atelectasis. Improved appearance compared with prior exam. Electronically Signed: Reid Danielle MD at 7:42 EDT ,
== END | disposition home or self-care (01) ==
LOC: RAD 12:09
PROVIDERS: PCP Internal Medicine; Referring Provider Internal Medicine Critical Care Medicine; Visit Provider Internal Medicine Critical Care Medicine
DX: J84.116 Cryptogenic organizing pneumonia (principal)
CPT/HCPCS: 71046

== ENCOUNTER → 2022-07-22 | Outpatient (CLI) | payer MEDICARE, OTHER, SELFPAY ==
[2022-07-22 12:43] VITALS: PULSE 101; PULSE 67; PULSE 69; PULSE 94; PULSE 97; PULSE 98; PULSE 99; O2SAT 93; O2SAT 94; O2SAT 95; O2SAT 96
--- NOTE | 2022-07-24 10:31 | PCM.PSN.6M ---
PSN 6 Minute Walk Test 6 Minute Walk Test 6 Minute Walk Test: 6 Minute Walk Test PSN:6-Minute Walk Test Start: 07/22/22 12:43 Freq: Status: Active Protocol: RESP.6MINW Document 07/22/22 12:43 GÓMEZ (Rec: 07/22/22 12:46 JONHON [id number]) 6 Minute Walk Test Date Performed 07/22/22 Time Performed 12:30 Height 5 ft 9 in Weight: 185 lb Weight in Pounds 185.[address]: Darius Mosqueda Assistive device used: None Pre-test Oxygen Delivery Method Room Air Pulse Ox (%) 96 Pulse Rate (60-100 beats/min) 67 Dyspnea Onel Scale (0-10) 0 Exertion Onel Scale (6-20) 6 1st minute Oxygen Delivery Method Room Air Pulse Ox (%) 95 Pulse Rate (60-100 beats/min) 94 2nd minute Oxygen Delivery Method Room Air Pulse Ox (%) 94 Pulse Rate (60-100 beats/min) 101 H 3rd minute Oxygen Delivery Method Room Air Pulse Ox (%) 94 Pulse Rate (60-100 beats/min) 99 4th minute Oxygen Delivery Method Room Air Pulse Ox (%) 93 Pulse Rate (60-100 beats/min) 98 5th minute Oxygen Delivery Method Room Air Pulse Ox (%) 93 Pulse Rate (60-100 beats/min) 97 6th minute Oxygen Delivery Method Room Air Pulse Ox (%) 94 Pulse Rate (60-100 beats/min) 98 Dyspnea Onel Scale (0-10) 3 Exertion Onel Scale (6-20) 12 Post-test Oxygen Delivery Method Room Air Pulse Ox (%) 96 Pulse Rate (60-100 beats/min) 69 Full Laps Walked 21 Partial Lap, Number of Tiles Walked 10 Total Distance Walked (ft) 1249 Interpretation Interpretation: The patient ambulated 1249 feet over the course of 6 minutes beginning on room air without assistive devices or breaks. Pretesting oxygen saturation was noted to be 96% on room air. With ambulation, the martina oxygen saturation was 93%. There was no significant exertional oxygen desaturation. Recommendations Recommendations: There is no indication for the use of supplemental oxygen at this time.
== END | disposition home or self-care (01) ==
LOC: PSN 12:23
PROVIDERS: PCP Internal Medicine; Referring Provider Internal Medicine Critical Care Medicine; Visit Provider Internal Medicine Critical Care Medicine
DX: J84.116 Cryptogenic organizing pneumonia (principal)
CPT/HCPCS: 94618

== ENCOUNTER 2023-03-10 09:03 | Day surgery (SDC) | payer MEDICARE, SELFPAY ==
[2023-03-03 13:01] LABS: Hematocrit 43.3 % (40-54); Mean Corp Hgb Conc 32.3 g/dL (32-36); Mean Corpuscular Hgb 30.6 pg (27.0-32.0); Mean Corpuscular Volume 94.5 fL (80-94); Mean Platelet Vol. 9.9 fl (6.2-12.0); Platelet Count 233 K/mm3 (150-450); RBC Distribution Width CV 13.1 % (11.6-14.6); RBC Distribution Width SD 45.2 fl (35.1-43.9); Red Blood Count 4.58 M/mm3 (4.6-6.2)
[2023-03-03 13:10] LABS: Prothrombin Time (Protime)PT. 13.1 SECONDS (11.7-14.9)
[2023-03-03 13:22] LABS: Partial Thromboplast Time 32.7 Seconds (24.1-36.2)
[2023-03-03 13:23] LABS: Anion Gap 6 (5-15); BUN 21 mg/dL (7-18); BUN/Creat Ratio 18.6 RATIO (10-20); Chloride 108 mmol/L (98-107); Creatinine, Serum 1.13 mg/dL (0.70-1.30); EST Glomerular Filtration Rate 67 mL/min (>60); Est Glom Filt Rate - Afr Amer 82 mL/min (>60); Glucose 129 mg/dL (74-106); Potassium 4.1 mmol/L (3.5-5.1); Sodium Level 141 mmol/L (136-145)
[2023-03-03 13:32] LABS: AST(SGOT) 15 U/L (15-37); Alanine Aminotransfer ALT/SGPT 20 U/L (16-61); Albumin, Serum 3.5 g/dL (3.2-5.0); Alkaline Phosphatase 75 U/L (45-117); Bilirubin, Direct 0.16 mg/dL (0.00-0.30); Globulin 3.1 g/dL (2.2-4.2); Protein, Total 6.6 g/dL (6.4-8.2)
[2023-03-10] VITALS (9 sets, daily range): BP systolic 114–164; BP diastolic 60–78; PULSE 47–68; RESP 16–18; TEMP 36.4–37.1; O2SAT 91–100; BMI 27.3
[2023-03-10] MEDS: Lactated Ringers 1,000 ML 15 ML IV (09:55)
--- NOTE | 2023-03-10 10:14 | HP.PCM_ITS ---
History and Physical Date of Admission: 03/10/23 ?patient in pain?: No Allergies No Known Allergies Allergy (Verified 02/24/23 09:09) Medications atenolol 25 mg tablet 25 mg PO DAILY blood pressure 07/31/21 [History Confirmed 02/24/23] lisinopril 10 mg tablet 10 mg PO DAILY blood pressure 07/31/21 [History Confirmed 02/24/23] tamsulosin 0.4 mg capsule 0.4 mg PO QHS prostate 07/31/21 [History Confirmed 02/24/23] aspirin 81 mg tablet,delayed release 81 mg PO DAILY HEART HEALTH 08/01/21 [History Confirmed 02/24/23] sildenafil 100 mg tablet 100 mg PO PRN PRN Erectile Dysfunction 08/19/21 [History Confirmed 02/24/23] cetirizine 10 mg capsule (Zyrtec) 10 mg PO DAILY PRN ALLERGIES 09/12/21 [History Confirmed 02/24/23] fluticasone propionate 50 mcg/actuation nasal spray,suspension 1 spray intranasal DAILY PRN allergies 09/12/21 [History Confirmed 02/24/23] lactobacillus combination no.4 3 billion cell capsule (Probiotic) 3,000 mmu cells PO DAILY probiotic 09/17/21 [History Confirmed 02/24/23] multivitamin 1 cap PO DAILY vitamin 09/17/21 [History Confirmed 02/24/23] PFSH Medical History? Acute respiratory failure with hypoxia History of steroid therapy HLD (hyperlipidemia) Hypertension Hypoxia Non-smoker Pleural effusion, right Pneumonia Prostate disease Shortness of breath on exertion Surgical History? History of bronchoscopy History of kidney surgery Hx of foot surgery Hx of left cataract extraction Hx of right cataract extraction Family History? Other Dementia Social History? household members:? spouse housing:? house pets and animals:? No history of recent travel:? No Smoking Status:? Never smoker substance use type:? does not use what type of physical activity do you participate in:? walking and bicycling HPI HPI Surgical H&P: Yes HPI: Patient presents for an update history and physical for an elective bilateral inguinal and umbilical hernia repair with mesh. Patient denies any recent hospitalizations or illnesses. Patient notes he has been cleared by Dr. Mosqueda, privacy director, for general anesthesia. Patient is maintained on a daily aspirin. Patient denies past cardiac history. He notes a history of cryptogenic pneumonia. Patient denies any concerns with anesthesia previously. He notes he is on Flomax for prostate issues. Patient's previous history per Dr. Su: 72-year-old gentleman presents for surgical consultation and treatment of a left inguinal hernia.? The patient's most recent medical care is pending per Dr. Darius Mosqueda pulmonology and treatment of a cryptogenic organizing pneumonia.? The patient is present.? He explains a long drawn out 3 separate hospitalization for cryptogenic pneumonia.? He was on prednisone at high dosing for extended period of time but that came to an end finally March 2022.? He was incredibly active prior to this episode walking up to 20,000 steps daily.? He now is about 90% back to where he was.? He is not requiring current steroids and not requiring oxygen.? During his illness however he had significant amount of coughing at that point noted significant bulging in the left groin.? He was told that he was to ill at that point and on too much steroid to allow for surgical correction.? He presents now to consider his surgical treatment options. ROS General General: No weight change, appetite, fatigue, colon cancer, breast cancer or weakness HEENT HEENT: No difficulty swallowing, eye injury, eye surgery, swollen glands or hoarseness Endo Endocrine: No thyroid disease, diabetes mellitus, thyroid cancer, Hair loss, heat intolerance or cold intolerance Skin Skin: No rash or changing moles Musc Musculoskeletal: No back problems, arthritis, rheumatoid arthritis, gout or joint pain Cardio Cardiovascular: Yes high blood pressure; No murmur, pacemaker, heart disease, atrial fibrillation, heart attack, heart stent, palpitations, shortness of breat with exertion or chest pain Psych Psychiatric: No depression, anxiety or hearing voices Resp Respiratory: No shortness of breath, No sleep apnea, No cough, No COPD, No asthma, No emphysema and No wheezing Gastro Gastrointestinal: No abdominal pain, No nausea or vomiting, No diarrhea, No constipation, No blood in stool, No acid reflux, No hemorrhoids, No ulcers, No gallbladder problem and No black,tarry stools Shayne Hematologic: No blood thinners, No blood disorders, No bleeding, No anemia and No blood clots Neuro Neurologic: No system reviewed and no additional complaints, except as documented, No as per HPI, No abnormal gait, No abnormal hearing, No abnormal movements, No abnormal speech, No behavioral changes, No burning sensations, No confusion, No convulsions, No disequilibrium, No dizziness, No localized weakness, No frequent falls, No headache(s), No lack of coordination, No loss of vision, No memory loss, No numbness, No other visual disturbances, No radicular pain, No restless legs, No sensory deficit, No syncope, No tingling, No tremor(s), No weakness and No other Exam Const General: cooperative, healthy appearing, comfortable and no acute distress [facility] Head: normal to inspection Eyes General: appearance normal, both eyes and all related structures Neck Neck: normal visual inspection Neck mass: No Resp Effort & Inspection: normal respiratory effort Auscultation: clear to auscultation bilaterally Cardio Rate: regular rate Rhythm: regular rhythm GI Inspection: normal to inspection Palpation: soft Auscultation: normal bowel sounds Other: Left inguinal hernia- moderate, reducible Right inguinal hernia- small, reducible Umbilicus- small incarcerated hernia Musc Cervical Spine: normal cervical lordosis Skin General: no rashes or lesions noted Neuro General: no focal motor deficits and CN's II-XI intact bilaterally Extrem General: normal to inspection Psych Appearance: grossly normal Affect: normal affect Assessment and Plan Assessment and Plan (1) Umbilical hernia without obstruction or gangrene: ?Status:?Acute (2) Non-recurrent bilateral inguinal hernia: ?Status:?Acute ?Plan: Dr. Su will plan to perform a laparoscopic bilateral inguinal hernia repair and umbilical hernia repair with mesh. Procedure details, risks and benefits have been reviewed with the patient and his spouse. Patient and spouse have had the opportunity to ask and have questions answered. Patient verbally understands and agrees with the plan. Will have patient hold his 81 mg aspirin for 1 week prior to the procedure I have examined the patient and the H&P has been reviewed. There are no clinical changes since date of exam. Curtis Su M.D., F.A.C.S.
--- NOTE | 2023-03-10 10:39 | DCINST_ITS ---
Discharge Instructions Procedure General Surgery Diet Discharge Diet: Light diet - advance as tolerated (if you have questions about your diet instructions, please talk to you doctor.) Activity Discharge Activity: May Not Drive (for 3-5 days or while taking narcotic pain medicine.) May shower in (days): 1 Lifting Restrictions: 10 pounds Dressing / Incision Call your doctor if your incision/area has: Continuous Slow Oozing, Sudden Increased Bleeding, Increased Pain/ Swelling, Increased Redness and Foul Smelling Discharge Call your doctor if you observe: Fever of 101 or Higher Suture Line Care: Avoid Pulling/Pushing and Avoid Pinching/Bending Additional Dressing/Incision Instructions:: Change or remove dressing in 4 days. Leave steri-strips in place for 1 week. Follow Up Care Please Follow Up With: Curtis Su MD When: Call [phone] to make an appointment to be seen in about 10 days. Test Results: Test results from this visit will be discussed in further detail at your follow- up appointment, if applicable. Discharge Plan Admission Attending Provider: Curtis Su Primary Care Provider: Teetee Mcdowell Discharge Orders/Prescriptions Prescriptions: No Action fluticasone propionate 50 mcg/actuation spray,suspension 1 spray intranasal DAILY PRN (Reason: allergies) Rx Instructions: administer into each nostril Zyrtec 10 mg capsule 10 mg PO DAILY PRN (Reason: ALLERGIES) atenolol 25 mg Tablet 25 mg PO DAILY tamsulosin 0.4 mg Capsule 0.4 mg PO QHS lisinopril 10 mg Tablet 10 mg PO DAILY aspirin 81 mg Tablet,Delayed Release (Dr/Ec) 81 mg PO DAILY sildenafil 100 mg tablet 100 mg PO PRN PRN (Reason: Erectile Dysfunction) Label Comments: 1 tablet 30 min prior to intercourse, on empty stomach and with sexual stimulation immediately following. multivitamin Capsule 1 cap PO DAILY Probiotic 3 billion cell Capsule 3,000 mmu cells PO DAILY Referrals / Follow Up: Teetee Mcdowell MD [Primary Care Provider] - Disposition Disposition (needs filled in before D/C Order can be placed): Home, Self Care
[2023-03-10] MEDS: Cefazolin 2 GM in 0.9% Normal Saline 100 ML IV (10:50)
--- NOTE | 2023-03-10 11:00 | HERN_PTH ---
PATIENT: JHOANA SPARKS LOC: [facility] [place] U#:[id number] AGE/SX: 72/M ROOM: RE03/10/[address]: Dr. Curtis Su MD : 1950 BED: DIS: 03/10/2023 SPEC #: [id number] RECD: 03/10/23 15:23 STATUS: OVIDIO TIMMONS #: [id number] KEYON: 03/10/23 11:[address]: Curtis Su DEPT: SURGICAL PATHOLOGY RECD BY: Kristin Espinoza ENTERED: 03/11/23 08:46 SP TYPE: Hernia OTHR DR: Dr. Teetee Mcdowell MD Tissues: HERNIA Procedures: Surgery Specimen Level II HEADER OPERATION: Lap inguinal hernias with mesh and umbilical hernia with mesh PRE-OP DIAGNOSIS: Bilateral inguinal hernias, umbilical hernia TISSUE SUBMITTED: Umbilical hernia contents MICROSCOPIC DIAGNOSIS Umbilical hernia sac and contents, excision: Hernia sac with fibrosis and mild chronic inflammation. AM:volodymyr 03/12/2023 MICROSCOPIC DESCRIPTION Slides are reviewed. GROSS DESCRIPTION Received in fixative is one container labeled with the patient's name and designated umbilical hernia contents. The specimen consists of multiple pieces of rosario-yellow adipose tissue that in aggregate measure 3.5 x 3.0 x 1.2 cm. Sections do not reveal any mass lesion. Needle Maker sections are submitted in one cassette. / SJ:volodymyr 03/11/2023 TC:3 CPT: 63025
[2023-03-10] MEDS: Bupivacaine Mpf 0.5% 30 ML VIAL (11:23)
--- NOTE | 2023-03-10 12:46 | OP.PCM_ITS ---
Report of Operation Date of Procedure: 03/10/23 Pre-Operative Diagnosis: Non-recurrent bilateral inguinal hernias. Umbilical h ernia Post-Operative Diagnosis: Nonrecurrent bilateral direct inguinal hernias. Umbilical hernia Surgery/Procedure Performed:: Laparoscopic bilateral inguinal herniorrhaphy with Bard 3D max mesh. Right large: Lot [id number], reference [id number], expiry date 11/01/2027 Left large colon Lot number [id number], reference [id number], expiry date 09/01/2027 Umbilical herniorrhaphy with 6.[address] mesh [address] 6.4 cm mesh: Lot number [id number], reference [id number], expiry date 08/01/2024 Description of Surgical Findings:: Timeout informed consent was obtained. 72-year-old gentleman was taken to the operating placed on the table underwent general endotracheal intubation anesthesia. Ancef 2 g were given intravenously. The abdomen groins were sterilely prepped and draped. 0.5% Marcaine was used as a local anesthetic. Skin sites were Rika size. A total of 30 cc was used. A curvilinear incision was made in the inferior portion of the umbilicus sharp and blunt dissection was used to identified preperitoneal fatty tissue which was dissected free with electrocautery. Holding sutures of 0 Vicryl placed. A 10 mm trocar inserted. 10 mm laparoscope inserted as the abdomen was inflated with CO2 to a pressure of 10 mmHg pressure. No evidence of superficial abnormalities of the abdomen except for bilateral direct inguinal hernias. 5 mm trocars and placed in the right left lower quadrant on direct visitation. Ileal inguinal nerve blocks were performed bilaterally with the Marcaine. The peritoneum superior lateral to the internal ring was incised carried immediately and then tediously the peritoneum was dissected free. The JUAN patient is a very low body fat and keeping the peritoneum intact was very difficult as was adherent couple openings was made in the peritoneum as the dissection was completed bilaterally. A Bard 3D max large mesh was placed on the right and secured laterally and then a similar large left was placed on the left they overlapped in the middle. They were secured in place laterally and superiorly and medially with secure strap. I felt that I got very good positioning and securement of the mesh. Then I placed surgery wrap underneath the mesh so that as I closed the peritoneum after there is any residual defects they would be protected by this antiadherent barrier. The peritoneum was then approximated to the anterior abdominal wall bilaterally with combination of secure strap and Hem-o-fabrizio clips. Any defects were carefully reapproximated with Hem-o-fabrizio clips and I was able to get complete closure of the peritoneum bilaterally with no open gaps. The abdomen was allowed to deflate of the CO2 through an antiviral valve. A 6.[address] mesh was placed at the umbilicus. And unfolded nicely. Tails were secured with interrupted 0 Nurolon. The fascia was then approximated with the same with several of the sutures grabbing the mesh and helping secure the mesh to the anterior abdominal wall. Having achieved that I reinsufflated the abdomen to 8 kaye of pressure. A couple edges of the mesh needed to be further's secured flat with a secure strap which I felt I was able to achieve. I attempted to place omentum overlying the small bowel but due to the paucity of the patient's body fat there was no omentum to help cover. The mesh itself that had its antiadherent side irrigated with saline. All sites appear to be intact and solid. The abdomen was again was allowed to deflate of the CO2. Skin edges were approximated interrupted 4 Monocryl subdermal stitches. Steri-Strips Telfa OpSite dressings applied. Cotton ball and Telfa OpSite applied at the umbilicus. It is of note that prior to closure the periumbilical area where it was a size at the fascial liver with a 0.5% Marcaine as well. Specimen includes an medical hernia sac and contents. Drains none. Blood loss minimal. The patient was taken to the recovery room in satisfactory addition without apparent complication Curtis Su M.D., F.A.C.S. Surgeon: Curtis Su Type of Anesthesia: General Anesthesiologist: Gwyn Mccoy
[2023-03-10] MEDS: HYDROcodone Bitartrate/Apap 5/325 Tablet PO (15:36)
--- NOTE | 2023-03-10 17:40 | SUR.PHASEII ---
THIS NURSE PLACED CATHETER IN PT DUE TO PT BEING UNABLE TO VOID PER DR KESSLER ORDERS. PT WAS INISTRUCTED TO CUT SIDEBAR THURSDAY MORNING AND IF HE IS UNABLE TO VOID, CALL [facility]. PT WAS INSTRUCTED ON HOW TO CUT SIDEBAR, PLACING BAG LOWER THAN BLADDER AND HOW TO EMPTY THE CATHETER BAG.
== END 2023-03-10 17:45 | disposition home or self-care (01) ==
LOC: SDC 09:03 → AC 09:05
PROVIDERS: Anesthesiology; PCP Internal Medicine; Referring Provider Surgery; Visit Provider Surgery
PROC: (CPT 49650; principal; 2023-03-10 10:40)
DX: K40.20 Bilateral inguinal hernia, without obstruction or gangrene, not specified as recurrent (principal); K42.9 Umbilical hernia without obstruction or gangrene; I10 Essential (primary) hypertension; E78.5 Hyperlipidemia, unspecified; N42.9 Disorder of prostate, unspecified; Z79.82 Long term (current) use of aspirin; Z79.899 Other long term (current) drug therapy
CPT/HCPCS: 49650; 49591; 00830; 36415; 80048; 80076; 85027; 85610; 85730; 88302; 93005; C1781; J7120; J2405

== ENCOUNTER → 2025-02-21 | Outpatient (CLI) | payer MEDICARE, SELFPAY | END | disposition home or self-care (01) | LOC: PSN 08:06 | PROVIDERS: PCP Internal Medicine; Referring Provider Nurse Practitioner Acute Care; Visit Provider Nurse Practitioner Acute Care | DX: R06.02 Shortness of breath (principal) | CPT/HCPCS: 94060; 94726; 94729 ==

== ENCOUNTER → 2025-03-09 | Outpatient (CLI) | payer MEDICARE, SELFPAY ==
[2025-03-09 10:39] VITALS: PULSE 64; PULSE 66; PULSE 70; PULSE 73; PULSE 77; PULSE 78; PULSE 83; O2SAT 95; O2SAT 96
--- NOTE | 2025-03-10 13:06 | WT_ITS ---
PSN 6 Minute Walk Test 6 Minute Walk Test 6 Minute Walk Test: 6 Minute Walk Test PSN:6-Minute Walk Test Start: 03/09/25 10:38 Freq: Status: Active Protocol: [id number] Document 03/09/25 10:39 [facility] (Rec: 03/09/25 10:44 [facility] [id number]) 6 Minute Walk Test Date Performed 03/09/25 Time Performed 09:00 Height 5 ft 9 in Weight: 185 lb Weight in Pounds 185.[address]: Zaynab Arteaga [employer] Assistive device None used: Pre-test Oxygen Delivery Room Air Method Pulse Ox (%) 96 Pulse Rate (60-100 64 beats/min) Dyspnea Onel Scale ( 0 0-10) Exertion Onel Scale 6 (6-20) 1st minute Oxygen Delivery Room Air Method Pulse Ox (%) 96 Pulse Rate (60-100 66 beats/min) Dyspnea Onel Scale ( 2 0-10) Number of Rests 0 Taken 2nd minute Oxygen Delivery Room Air Method Pulse Ox (%) 95 Pulse Rate (60-100 70 beats/min) Dyspnea Onel Scale ( 2 0-10) Number of Rests 0 Taken 3rd minute Oxygen Delivery Room Air Method Pulse Ox (%) 95 Pulse Rate (60-100 78 beats/min) Dyspnea Onel Scale ( 3 0-10) Number of Rests 0 Taken Reported Symptoms Increased Work of Breathing 4th minute Oxygen Delivery Room Air Method Pulse Ox (%) 96 Pulse Rate (60-100 77 beats/min) Dyspnea Onel Scale ( 3 0-10) Number of Rests 0 Taken Reported Symptoms Increased Work of Breathing 5th minute Oxygen Delivery Room Air Method Pulse Ox (%) 96 Pulse Rate (60-100 73 beats/min) Dyspnea Onel Scale ( 3 0-10) Number of Rests 0 Taken Reported Symptoms Increased Work of Breathing 6th minute Oxygen Delivery Room Air Method Pulse Ox (%) 95 Pulse Rate (60-100 83 beats/min) Dyspnea Onel Scale ( 3 0-10) Exertion Onel Scale 6 (6-20) Number of Rests 0 Taken Reported Symptoms Increased Work of Breathing Post-test Oxygen Delivery Room Air Method Pulse Ox (%) 96 Pulse Rate (60-100 70 beats/min) Dyspnea Onel Scale ( 0 0-10) Full Laps Walked 20 Partial Lap, Number 0 of Tiles Walked Total Distance 1180 Walked (ft) Interpretation Interpretation: The patient ambulated 1180 feet over the course of 6 minutes beginning on room air without assistive devices. Pretesting oxygen saturation was noted to be 96% on room air. With ambulation, the martina oxygen saturation was 95%. There was no significant exertional oxygen desaturation. Recommendations Recommendations: There is no indication for the use of supplemental oxygen at this time.
== END | disposition home or self-care (01) ==
LOC: PSN 09:06 → SL 10:07
PROVIDERS: PCP Internal Medicine; Referring Provider Nurse Practitioner Acute Care; Visit Provider Nurse Practitioner Acute Care
DX: R06.02 Shortness of breath (principal); R09.02 Hypoxemia
CPT/HCPCS: 94618; 94762